=== PATIENT | male | born 1950 | race Caucasian/White ===

== ENCOUNTER 2021-06-04 16:21 | Emergency (ER) | payer MEDICARE, SELFPAY ==
[2021-06-04 16:32] VITALS: BP 110/63; PULSE 79; RESP 20; TEMP 36.7; O2SAT 98
--- NOTE | 2021-06-04 16:43 | ED.GENADULT ---
HPI - General Adult General Chief complaint: Upper Respiratory Infection Stated complaint: Sore Throat Time Seen by Provider: 06/04/21 16:57 Source: patient and RN notes reviewed Mode of arrival: ambulatory Limitations: no limitations History of Present Illness HPI narrative: 71-year-old male presents with multiple complaints. Reports he started losing his voice today, had cough and nasal congestion since yesterday. She also reports he had dark-colored urine. He denies dysuria, frequency, urgency. Denies fever. Reports body aches. MD complaint: Cough, dark-colored urine Related Data Home Medications Medication Instructions Recorded Confirmed aspirin 81 mg tablet,delayed 81 mg PO DAILY 03/22/19 06/04/21 release Allergies Allergy/AdvReac Type Severity Reaction Status Date / Time lisinopril Allergy Swelling Verified 06/04/21 16:40 of Lip/Tongue/Throat Sulfa (Sulfonamide Allergy Rash Unverified 03/06/21 15:13 Antibiotics) sulfamethoxazole Allergy Rash Verified 06/04/21 16:40 [From Bactrim] trimethoprim [From Bactrim] Allergy Rash Verified 06/04/21 16:40 Review of Systems Review of Systems: CONSTITUTIONAL: Denies malaise, chills, sweats, or fever. EYES: Denies visual changes, redness, or discharge. ENT: Reports rhinorrhea, congestion, sore throat, hoarse voice. Denies sinus pain, otalgia CARDIOVASCULAR: Denies chest pain, palpitations, or edema. RESPIRATORY: Reports cough. Denies dyspnea. GASTROINTESTINAL: Denies abdominal pain, nausea, vomiting, diarrhea SKIN: Denies rash or itching. : Reports dark-colored urine MUSCULOSKELETAL: Reports myalgia. NEUROLOGIC: Denies headache. All systems reviewed & are unremarkable except as noted in HPI and below [facility] Past Medical History Medical History Enlarged prostate Heart failure Hypertension Stroke UTI (urinary tract infection) due to Enterococcus Surgical History Surgical History H/O heart surgery History of prostate surgery Family History Family History Unknown No problems noted. Social History Social History (Updated 03/06/21 @ 15:19 by Promise Story [facility]) Smoking packs per day: 3 Smoking cigarettes per day: 60.0 Years smoked: 20 Smoking pack-years: 60.00 Smoking status: Former smoker Tobacco type: cigarettes Second hand tobacco smoke exposure: Yes Smoking end date: 05/12/14 Additional smoking assessment comments: 2 a week Alcohol intake: former Substance use: never Comments At time of signature, agree with nursing past medical, surgical, social and family history. There is no relevant family history pertinent to the presenting complaint Exam Narrative: GENERAL: Well-appearing, well-nourished, and in no acute distress. HEAD: Normocephalic EYES: PERRLA, conjunctivae clear ENT: Nares clear, turbinates edematous and erythematous, clear discharge. Mucous membranes moist. TM pearly ponce with dull light reflex bilaterally; no tragal tenderness. Oropharynx not erythematous without lesions. Tonsils not enlarged and without exudate, no drooling, no hoarseness, no trismus, uvula midline. NECK: Supple. No lymphadenopathy CHEST: Clear to auscultation, breath sounds equal. No wheezing, rhonchi, rales, or stridor. No respiratory distress, speaks in full sentences. HEART: Regular rate and rhythm. No murmur heard. SKIN: Warm, dry, no rash. NEURO: Alert and oriented x3. PSYCH: Normal mood and affect Course Course Emergency Course: Patient is aware of diagnosis, understands and agrees to treatment plan. Anticipatory guidance given. Patient agrees to follow-up as directed and is aware of reasons to seek care at the emergency department. Portions of this record may have been created with voice recognition software Level of Care: [facility] Care Visit
== END 2021-06-04 17:26 | disposition home or self-care (01) ==
PROVIDERS: Emergency Provider Nurse Practitioner; PCP Family Medicine
DX: U07.1 COVID-19 (principal); R31.9 Hematuria, unspecified; I11.0 Hypertensive heart disease with heart failure; I50.9 Heart failure, unspecified; Z87.891 Personal history of nicotine dependence; Z79.82 Long term (current) use of aspirin
CPT/HCPCS: 81003; 87086; 87426; 99213; C9803; G0463

== ENCOUNTER 2021-07-23 09:49 | Outpatient (CLI) | payer MEDICARE, SELFPAY ==
[2021-07-23 19:02] LABS: Basophils Absolute Auto 0.1 K/mm3 (0.0-0.1); Eosinophils Absolute Auto 0.3 K/mm3 (0-0.3); Eosinophils Percent Auto 3.3 % (0-4.4); Hematocrit 46.4 % (42.0-52.0); Hemoglobin 14.8 g/dL (14.0-18.0); Immature Granulocyte Absolute 0.02 K/mm3 (0.00-0.031); Immature Granulocyte Percent A 0.2 % (0-0.5); Lymphocytes Absolute Auto 2.61 K/mm3 (0.9-3.2); Lymphocytes Percent Auto 25.5 % (18.3-44.2); Mean Corpuscular HGB Conc 31.9 g/dl (32-36); Mean Corpuscular Hemoglobin 29.9 pg (26-34); Mean Corpuscular Volume 93.7 fl (80-100); Mean Platelet Volume 11.5 fl (7.4-10.4); Monocytes Absolute Auto 0.6 K/mm3 (0.1-0.6); Monocytes Percent Auto 5.4 % (2.6-8.5); Neutrophils Absolute Auto 6.6 K/mm3 (1.3-6.7); Neutrophils Percent Auto 64.6 % (45.5-73.1); Platelet Count Result 222 k/mm3 (150-375); Red Blood Count 4.95 M/mm3 (4.6-6.20); Red Cell Distribution Width 13.9 % (11.5-14.5); White Blood Count 10.2 K/mm3 (4.5-10.0)
[2021-07-23 19:03] LABS: Iron 131 ug/dL (49-181)
[2021-07-23 19:14] LABS: Percent Iron Saturation 32 % (20-50)
[2021-07-23 19:15] LABS: Add Urine Microscopic? YES; Appearance Urine Cloudy (Clear); Bacteria Urine Trace /hpf; Bilirubin Urine Negative (Negative); Blood Urine Negative (Negative); Color Urine Yellow (Yellow); Glucose Urine UA Negative (Negative); Ketones Urine Negative (Negative); Leukocyte Esterase Ur 1+ LEU/UL (NEGATIVE); Mucus Urine Rare /lpf; Nitrate Urine Positive (Negative); Protein Urine Negative (Negative); RBC Urine 0-2 /hpf (0-2); Specific Grav Ur 1.012 (1.001-1.035); Squamous Epithelial Cell Urine Rare /hpf (Few); Urobilinogen Urine Negative mg/dL (<2.0); WBC Clumps Urine Present /HPF; WBC Urine >75 /hpf (0-3)
[2021-07-23 19:32] LABS: Alanine Aminotransferase 21 U/L (4-50); Albumin Level 5.2 g/dL (3.5-5.1); Alkaline Phosphatase 73 U/L (38-126); Anion Gap 16 mmol/L (8-16); Aspartate Amino Transferase 26 U/L (17-59); Bilirubin,Total 0.9 mg/dL (0.2-1.3); Blood Urea Nitrogen 53 mg/dL (9-20); Calcium 10.1 mg/dL (8.4-10.2); Carbon Dioxide 26 mmol/L (22-30); Chloride 92 mmol/L (98-107); Estimated Glomerular Filt Rate 50; Glucose 284 mg/dL (65-110); Potassium 6.2 mmol/L (3.4-5.0); Sodium 134 mmol/L (137-145)
== END 2021-07-23 09:50 | disposition home or self-care (01) ==
PROVIDERS: PCP Family Medicine; Visit Provider Family Medicine
DX: E11.9 Type 2 diabetes mellitus without complications (principal); D64.9 Anemia, unspecified; I10 Essential (primary) hypertension; I50.9 Heart failure, unspecified
CPT/HCPCS: 36415; 80053; 81001; 83540; 83550; 85025; 87077; 87086; 87186

== ENCOUNTER 2021-07-24 10:36 | Outpatient (CLI) | payer MEDICARE, SELFPAY ==
[2021-07-24 19:07] LABS: Potassium 4.7 mmol/L (3.4-5.0)
[2021-07-24 19:13] LABS: Anion Gap 13 mmol/L (8-16); Blood Urea Nitrogen 47 mg/dL (9-20); Calcium 9.9 mg/dL (8.4-10.2); Carbon Dioxide 27 mmol/L (22-30); Chloride 95 mmol/L (98-107); Estimated Glomerular Filt Rate 60; Glucose 228 mg/dL (65-110); Sodium 135 mmol/L (137-145)
== END 2021-07-24 10:37 | disposition home or self-care (01) ==
LOC: ANHBWCLAB 10:38
PROVIDERS: PCP Family Medicine; Visit Provider Family Medicine
DX: E87.5 Hyperkalemia (principal)
CPT/HCPCS: 36415; 80048

== ENCOUNTER 2022-01-02 12:05 | Outpatient (CLI) | payer MEDICARE, SELFPAY ==
[2022-01-02 19:56] LABS: Hemoglobin A1C 6.7 % (<5.7)
[2022-01-02 20:16] LABS: Alanine Aminotransferase 17 U/L (6-50); Alkaline Phosphatase 59 U/L (38-126); Anion Gap 14 mmol/L (8-16); Aspartate Amino Transferase 34 U/L (17-59); Bilirubin,Total 0.7 mg/dL (0.2-1.3); Blood Urea Nitrogen 44 mg/dL (9-20); Calcium 9.7 mg/dL (8.4-10.2); Carbon Dioxide 33 mmol/L (22-30); Chloride 91 mmol/L (98-107); Estimated Glomerular Filt Rate 43; Glucose 177 mg/dL (65-110); Potassium 4.5 mmol/L (3.4-5.0); Sodium 138 mmol/L (137-145)
== END 2022-01-02 12:06 | disposition home or self-care (01) ==
PROVIDERS: PCP Family Medicine; Visit Provider Family Medicine
DX: E11.9 Type 2 diabetes mellitus without complications (principal); I87.8 Other specified disorders of veins
CPT/HCPCS: 36415; 80053; 83036

== ENCOUNTER 2022-03-27 10:48 | Outpatient (CLI) | payer MEDICARE, SELFPAY ==
--- NOTE | ~2022-03-27 | XR_ITS ---
EXAMINATION: XR toe 1st RT min 2V INDICATION: Right first toe pain TECHNIQUE: Four views of the right first toe are obtained on five radiographs COMPARISON: None available FINDINGS: The bones are osteopenic which limits the sensitivity for fracture however none is seen. Th ere are mild erosions at the medial aspect of the first metatarsophalangeal joint. There is mild oste oarthritis of multiple interphalangeal joints. Soft tissues are unremarkable. IMPRESSION: 1. Polyarticular osteoarthritis. Reviewed, dictated and finalized at location F. K FEEDER
[2022-03-27 19:31] LABS: Appearance Urine Slightly Cloudy (Clear); Bilirubin Urine Negative (Negative); Blood Urine Negative (Negative); Color Urine Yellow (Yellow); Glucose Urine UA Negative (Negative); Ketones Urine Negative (Negative); Leukocyte Esterase Ur 1+ LEU/UL (NEGATIVE); Nitrate Urine Positive (Negative); Protein Urine Negative (Negative); Urobilinogen Urine 0.2 mg/dL (<2.0); pH Urine 5.5 (5.0-9.0)
[2022-03-27 19:36] LABS: Bacteria Urine Trace /hpf; RBC Urine 0-2 /hpf (0-2); Squamous Epithelial Cell Urine Rare /hpf (Few)
[2022-03-27 19:37] LABS: Add Urine Microscopic? YES
[2022-03-27 19:46] LABS: Basophils Absolute Auto 0.1 K/mm3 (0.0-0.1); Eosinophils Absolute Auto 0.2 K/mm3 (0-0.3); Eosinophils Percent Auto 2.9 % (0-4.4); Hematocrit 43.9 % (42.0-52.0); Hemoglobin 14.3 g/dL (14.0-18.0); Immature Granulocyte Absolute 0.01 K/mm3 (0.00-0.031); Immature Granulocyte Percent A 0.1 % (0-0.5); Lymphocytes Absolute Auto 2.01 K/mm3 (0.9-3.2); Lymphocytes Percent Auto 28.7 % (18.3-44.2); Mean Corpuscular HGB Conc 32.6 g/dl (32-36); Mean Corpuscular Hemoglobin 29.7 pg (26-34); Mean Corpuscular Volume 91.1 fl (80-100); Monocytes Absolute Auto 0.4 K/mm3 (0.1-0.6); Monocytes Percent Auto 5.9 % (2.6-8.5); Neutrophils Absolute Auto 4.3 K/mm3 (1.3-6.7); Neutrophils Percent Auto 61.4 % (45.5-73.1); Platelet Count Result 226 k/mm3 (150-375); Red Blood Count 4.82 M/mm3 (4.6-6.20); Red Cell Distribution Width 12.4 % (11.5-14.5)
[2022-03-27 19:48] LABS: Anion Gap 18 mmol/L (8-16); Blood Urea Nitrogen 25 mg/dL (9-20); Carbon Dioxide 32 mmol/L (22-30); Chloride 95 mmol/L (98-107); Estimated Glomerular Filt Rate 55; Glucose 143 mg/dL (65-110); Potassium 4.2 mmol/L (3.4-5.0); Sodium 145 mmol/L (137-145)
== END 2022-03-27 10:49 | disposition home or self-care (01) ==
PROVIDERS: PCP Family Medicine; Visit Provider Family Medicine
DX: M79.674 Pain in right toe(s) (principal); D64.9 Anemia, unspecified; N30.90 Cystitis, unspecified without hematuria; N17.9 Acute kidney failure, unspecified
CPT/HCPCS: 36415; 73660; 80048; 81001; 85025

== ENCOUNTER 2022-09-16 10:31 | Outpatient (CLI) | payer MEDICARE, SELFPAY ==
[2022-09-16 18:41] LABS: Basophils Absolute Auto 0.1 K/mm3 (0.0-0.1); Basophils Percent Auto 1.1 % (0.2-1.2); Eosinophils Absolute Auto 0.3 K/mm3 (0-0.3); Eosinophils Percent Auto 4.6 % (0-4.4); Hemoglobin 13.2 g/dL (14.0-18.0); Immature Granulocyte Absolute 0.02 K/mm3 (0.00-0.031); Immature Granulocyte Percent A 0.3 % (0-0.5); Lymphocytes Absolute Auto 1.65 K/mm3 (0.9-3.2); Mean Corpuscular HGB Conc 31.4 g/dl (32-36); Mean Corpuscular Hemoglobin 29.9 pg (26-34); Mean Platelet Volume 11.2 fl (7.4-10.4); Monocytes Absolute Auto 0.4 K/mm3 (0.1-0.6); Monocytes Percent Auto 6.2 % (2.6-8.5); Neutrophils Absolute Auto 3.9 K/mm3 (1.3-6.7); Neutrophils Percent Auto 61.8 % (45.5-73.1); Platelet Count Result 171 k/mm3 (150-375); Red Blood Count 4.42 M/mm3 (4.6-6.20); White Blood Count 6.3 K/mm3 (4.5-10.0)
[2022-09-16 18:58] LABS: Alanine Aminotransferase 16 U/L (6-50); Albumin Level 4.4 g/dL (3.5-5.1); Alkaline Phosphatase 62 U/L (38-126); Anion Gap 8 mmol/L (8-16); Aspartate Amino Transferase 36 U/L (17-59); Bilirubin,Total 0.6 mg/dL (0.2-1.3); Blood Urea Nitrogen 18 mg/dL (9-20); Calcium 9.1 mg/dL (8.4-10.2); Carbon Dioxide 33 mmol/L (22-30); Chloride 99 mmol/L (98-107); Cholesterol 221 mg/dL (0-200); Estimated Glomerular Filt Rate > 60; Glucose 155 mg/dL (65-110); HDL Direct 32 mg/dL; Potassium 4.2 mmol/L (3.4-5.0); Sodium 140 mmol/L (137-145); Triglycerides 360 mg/dL (<150)
[2022-09-16 19:09] LABS: LDL Cholesterol Direct 133 mg/dL
[2022-09-16 19:50] LABS: Hemoglobin A1C 5.9 % (<5.7)
[2022-09-16 21:48] LABS: MALB Creatinine Ratio 41.8 mg/g (0-30); Microalbumin Urine Random 7.1 mg/L (0-16.7)
== END 2022-09-16 10:32 | disposition home or self-care (01) ==
PROVIDERS: PCP Family Medicine; Visit Provider Family Medicine
DX: D64.9 Anemia, unspecified (principal); E11.9 Type 2 diabetes mellitus without complications; I87.8 Other specified disorders of veins; E87.5 Hyperkalemia; I50.9 Heart failure, unspecified; I11.0 Hypertensive heart disease with heart failure; N40.0 Benign prostatic hyperplasia without lower urinary tract symptoms
CPT/HCPCS: 36415; 80053; 80061; 82043; 83036; 85025

== ENCOUNTER 2023-03-17 14:31 | Outpatient (CLI) | payer MEDICARE, SELFPAY ==
--- NOTE | ~2023-03-17 | XR_ITS ---
EXAM: XR foot LT min 3V, XR foot RT min 3V DATE: 03/17/2023 15:00 (accession [id number]), 03/17/2023 14:59 (accession [id number]) HISTORY: Pain Swelling . COMPARISON: X-ray first toe right 03/27/2022. FINDINGS: Severely decreased mineralization. No fracture or dislocation. No lytic or blastic lesion. Mild scattered degenerative changes bilaterally in the feet, most notably in the left first MTP join t and multiple midfoot joints. Soft tissue calcification of the plantar fascia bilaterally. Punched-o ut articular erosions about the first MTP joint, with overlying soft tissue swelling. No periosteal c hange. Soft tissues within normal limits. IMPRESSION: Severe osteopenia. Radiographic changes suggestive of gout in the right first MTP joint, correlate with appropriate labs and clinical presentation. Septic arthritis considered less likely but cannot be excluded based on i maging alone. No definite radiographic evidence of osteomyelitis. Reviewed, dictated and finalized at location K. NET PROGRAMMER IMPRESSION: Severe osteopenia. Radiographic changes suggestive of gout in the right first MTP joint, correlate with appropriate labs and clinical presentation. Septic arthritis considered l ess likely but cannot be excluded based on imaging alone. No definite radiographic evidence of osteomyelitis.
[2023-03-17 19:17] LABS: Hematocrit 40.2 % (42.0-52.0); Hemoglobin 12.7 g/dL (14.0-18.0); Mean Corpuscular HGB Conc 31.6 g/dl (32-36); Mean Corpuscular Volume 94.8 fl (80-100); Mean Platelet Volume 11.4 fl (7.4-10.4); Platelet Count Result 189 k/mm3 (150-375); Red Blood Count 4.24 M/mm3 (4.6-6.20); Red Cell Distribution Width 13.1 % (11.5-14.5); White Blood Count 6.3 K/mm3 (4.5-10.0)
[2023-03-17 20:07] LABS: Alanine Aminotransferase 14 U/L (6-50); Albumin Level 4.1 g/dL (3.5-5.1); Alkaline Phosphatase 58 U/L (38-126); Anion Gap 7 mmol/L (8-16); Aspartate Amino Transferase 25 U/L (17-59); Bilirubin,Total 0.6 mg/dL (0.2-1.3); Blood Urea Nitrogen 26 mg/dL (9-20); Calcium 9.2 mg/dL (8.4-10.2); Carbon Dioxide 32 mmol/L (22-30); Chloride 101 mmol/L (98-107); Estimated Glomerular Filt Rate 60; Glucose 173 mg/dL (65-110); Potassium 4.3 mmol/L (3.4-5.0); Sodium 140 mmol/L (137-145)
[2023-03-17 20:34] LABS: Creatinine Urine 197.8 mg/dL
[2023-03-17 20:39] LABS: MALB Creatinine Ratio 28.6 mg/g (0-30); Microalbumin Urine Random 56.5 mg/L (0-16.7)
[2023-03-17 21:40] LABS: Appearance Urine Turbid (Clear); Bacteria Urine 4+ /hpf; Bilirubin Urine Negative (Negative); Blood Urine 1+ (Negative); Color Urine Yellow (Yellow); Glucose Urine UA Negative (Negative); Ketones Urine Negative (Negative); Leukocyte Esterase Ur 3+ LEU/UL (NEGATIVE); Nitrate Urine Negative (Negative); Non Pathogenic Casts 0-2; Protein Urine Trace mg/dL (Negative); Specific Grav Ur 1.019 (1.001-1.035); Squamous Epithelial Cell Urine None seen /hpf (Few); WBC Urine >100 /hpf (0-3); pH Urine 5.5 (5.0-9.0)
[2023-03-17 21:53] LABS: Hemoglobin A1C 6.2 % (<5.7)
[2023-03-17 21:56] LABS: Add Urine Microscopic? YES
== END 2023-03-17 14:32 | disposition home or self-care (01) ==
LOC: ANHBWCLAB 14:33
PROVIDERS: PCP Family Medicine; Visit Provider Family Medicine
DX: E11.9 Type 2 diabetes mellitus without complications (principal); E87.5 Hyperkalemia; I10 Essential (primary) hypertension; I50.9 Heart failure, unspecified; N40.0 Benign prostatic hyperplasia without lower urinary tract symptoms; R60.9 Edema, unspecified; M85.89 Other specified disorders of bone density and structure, multiple sites
CPT/HCPCS: 36415; 73630; 80053; 81001; 82043; 83036; 85027

== ENCOUNTER 2023-06-25 13:28 | Outpatient (CLI) | payer MEDICARE, SELFPAY ==
--- NOTE | ~2023-06-25 | XR_ITS ---
EXAMINATION: XR lumbar spine 2-3V DATE: 06/25/2023 14:05 INDICATION: Low back pain. Fall 2 days ago. TECHNIQUE: 3 views of lumbar spine were obtained. COMPARISON: None. FINDINGS: There is 7 degrees dextrocurvature of thoracolumbar spine. There is 4 mm anterolisthesis of L5 on S1. There are likely bilateral L5 pars defects. There is mild chronic anterior wedging of T12 and L1 vertebral bodies. There is mildly decreased disc height at L2-L3, L4-L5, and L5-S1. There is m ultilevel severe facet joint osteoarthritis. There is a fusiform aneurysm of infrarenal aorta measuri ng approximately 5.8 cm. IMPRESSION: 1. 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 CTA of the abdomen and pelvis is recommended. I call ed this result to [place] So. 2. Bilateral L5 pars defects with grade 1 anterolisthesis of L5 on S1. 3. Mild lumbar spondylosis. Reviewed, dictated and finalized at location A. RING MANAGER IMPRESSION: 1. 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 CTA of the abdomen and pelvis is recommended. I called this result to [place] So. 2. Bilateral L5 pars defects with grade 1 anterolisthesis of L5 on S1. 3. Mild lumbar spondylosis.
[2023-06-25 18:16] LABS: Hematocrit 41.5 % (42.0-52.0); Hemoglobin 12.6 g/dL (14.0-18.0); Mean Corpuscular HGB Conc 30.4 g/dl (32-36); Mean Corpuscular Hemoglobin 28.3 pg (26-34); Mean Corpuscular Volume 93.3 fl (80-100); Mean Platelet Volume 11.3 fl (7.4-10.4); Platelet Count Result 234 k/mm3 (150-375); Red Blood Count 4.45 M/mm3 (4.6-6.20); Red Cell Distribution Width 15.4 % (11.5-14.5); White Blood Count 8.3 K/mm3 (4.5-10.0)
[2023-06-25 18:33] LABS: Anion Gap 10 mmol/L (8-16); Blood Urea Nitrogen 22 mg/dL (9-20); Carbon Dioxide 30 mmol/L (22-30); Chloride 102 mmol/L (98-107); Estimated Glomerular Filt Rate > 60; Glucose 125 mg/dL (65-110); Potassium 4.2 mmol/L (3.4-5.0); Sodium 142 mmol/L (137-145)
[2023-06-25 18:57] LABS: Appearance Urine Clear (Clear); Bilirubin Urine Negative (Negative); Blood Urine Negative (Negative); Color Urine Yellow (Yellow); Glucose Urine UA Negative (Negative); Ketones Urine Negative (Negative); Leukocyte Esterase Ur Negative LEU/UL (NEGATIVE); Nitrate Urine Negative (Negative); Protein Urine Negative (Negative); Specific Grav Ur 1.011 (1.001-1.035); pH Urine 5.5 (5.0-9.0)
[2023-06-25 19:00] LABS: Add Urine Microscopic? NO
== END 2023-06-25 13:29 | disposition home or self-care (01) ==
LOC: ANHBWCLAB 13:29
PROVIDERS: PCP Nurse Practitioner Adult Health; Visit Provider Nurse Practitioner Adult Health
DX: M43.06 Spondylolysis, lumbar region (principal); M47.817 Spondylosis without myelopathy or radiculopathy, lumbosacral region; R39.9 Unspecified symptoms and signs involving the genitourinary system; I71.43 Infrarenal abdominal aortic aneurysm, without rupture; W19.XXXA Unspecified fall, initial encounter
CPT/HCPCS: 36415; 72100; 80048; 81003; 85027

== ENCOUNTER 2023-08-19 11:36 | Outpatient (CLI) | payer MEDICARE, SELFPAY ==
--- NOTE | ~2023-08-19 | XR_ITS ---
Left wrist Technique: PA and lateral views were obtained. Clinical History: Pain Findings: No acute fracture or dislocation is seen. Osseous alignment is anatomic. Joint spaces are p reserved. Soft tissues are unremarkable. Impression: Unremarkable left wrist radiographs. Reviewed, dictated and finalized at location M. Impression: Unremarkable left wrist radiographs.
--- NOTE | ~2023-08-19 | XR_ITS ---
Clinical Indication: Congestion PA and lateral views of the chest: Comparison: None Findings: The lungs are clear, without evidence of focal consolidation or pleural effusion. Cardiome diastinal silhouette is prominent, status post cardiac valve replacement. Bones and soft tissues are unremarkable. Impression: Clear lungs. Cardiomegaly, status post valve replacement Reviewed, dictated and finalized at location . Impression: Clear lungs. Cardiomegaly, status post valve replacement
[2023-08-19 19:21] LABS: Anion Gap 9 mmol/L (4-12); Blood Urea Nitrogen 18 mg/dL (9-20); Calcium 9.7 mg/dL (8.4-10.2); Carbon Dioxide 28 mmol/L (22-30); Chloride 102 mmol/L (98-107); Estimated Glomerular Filt Rate > 60; Glucose 161 mg/dL (65-110); Potassium 4.4 mmol/L (3.4-5.0); Sodium 139 mmol/L (137-145)
== END 2023-08-19 11:37 | disposition home or self-care (01) ==
PROVIDERS: PCP Nurse Practitioner Adult Health; Visit Provider Nurse Practitioner Adult Health
DX: J98.8 Other specified respiratory disorders (principal); I51.7 Cardiomegaly; I50.9 Heart failure, unspecified; M25.532 Pain in left wrist; Z95.2 Presence of prosthetic heart valve
CPT/HCPCS: 36415; 71046; 73100; 80048

== ENCOUNTER 2024-04-19 11:10 | Outpatient (CLI) | payer MEDICARE, SELFPAY ==
[2024-04-19 19:34] LABS: Hematocrit 44.8 % (42.0-52.0); Hemoglobin 14.1 g/dL (14.0-18.0); Mean Corpuscular HGB Conc 31.5 g/dl (32-36); Mean Corpuscular Hemoglobin 30.7 pg (26-34); Mean Corpuscular Volume 97.4 fl (80-100); Mean Platelet Volume 11.6 fl (7.4-10.4); Platelet Count Result 183 k/mm3 (150-375); Red Cell Distribution Width 13.7 % (11.5-14.5); White Blood Count 9.8 K/mm3 (4.5-10.0)
[2024-04-19 20:29] LABS: Alanine Aminotransferase 94 U/L (6-50); Albumin Level 4.7 g/dL (3.5-5.1); Alkaline Phosphatase 68 U/L (38-126); Anion Gap 6 mmol/L (4-12); Aspartate Amino Transferase 63 U/L (17-59); Bilirubin,Total 1.8 mg/dL (0.2-1.3); Blood Urea Nitrogen 20 mg/dL (9-20); Carbon Dioxide 35 mmol/L (22-30); Chloride 97 mmol/L (98-107); Cholesterol 105 mg/dL (0-200); Estimated Glomerular Filt Rate 60; Glucose 134 mg/dL (65-110); HDL Direct 30 mg/dL; Potassium 4.5 mmol/L (3.4-5.0); Sodium 138 mmol/L (137-145); Triglycerides 163 mg/dL (<150); Uric Acid 8.2 mg/dL (3.5-8.5)
[2024-04-19 20:39] LABS: LDL Cholesterol Direct 40 mg/dL
[2024-04-19 20:46] LABS: Hemoglobin A1C 6.4 % (<5.7)
[2024-04-19 21:00] LABS: Prostate Specific Antigen 0.4 ng/mL (< OR = 4.0)
== END 2024-04-19 11:11 | disposition home or self-care (01) ==
LOC: ANHBWCLAB 11:11
PROVIDERS: PCP Nurse Practitioner Adult Health; Visit Provider Nurse Practitioner Adult Health
DX: E79.0 Hyperuricemia without signs of inflammatory arthritis and tophaceous disease (principal); E11.9 Type 2 diabetes mellitus without complications; R39.9 Unspecified symptoms and signs involving the genitourinary system; N40.0 Benign prostatic hyperplasia without lower urinary tract symptoms; Z12.5 Encounter for screening for malignant neoplasm of prostate
CPT/HCPCS: 36415; 80053; 80061; 82565; 83036; 84153; 84550; 85027; G0103

== ENCOUNTER 2024-10-18 10:59 | Outpatient (CLI) | payer MEDICARE, SELFPAY ==
--- OUTSIDE RECORDS SUMMARY | 2024-10-18 12:29 | XMS_ITS | Referral Summary ---
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 Name Role Phone Kayla Cruz MD PhD Unavailable [phone] Miah Merritt MD Unavailable [phone] Mily Rush PhD Unavailable [phone] Naveen Ty MD Unavailable [phone] Salvador Malone MD Unavailable [phone] Niles Reeves MD Unavailable [phone] Zachrey Wood MD Unavailable [phone] Charlene Palomino NP Primary Care Provider [phone] Allergies Active Allergy Reactions Criticality Noted Date Comments Sulfamethoxazole-Trimethoprim Rash Medium 2019 Lisinopril Angioedema High 02/05/2019 Medications acetaminophen (TYLENOL) 500 mg tabletIndication s:Pain Take 1 tablet (500 mg total) by mouth every 4 (four) hours as needed for pain Active isosorbide mononitrate ER (IMDUR) 60 mg 24 hr tablet Take 1 tablet (60 mg total) by mouth daily 30 tablet 2 Active apixaban (ELIQUIS) 5 mg tablet Take 1 tablet (5 mg total) by mouth 2 (two) times a day 60 tablet 1 3 Active atorvastatin (LIPITOR) 80 mg tablet Take 1 tablet (80 mg total) by mouth daily 30 tablet 11 3 Active allopurinoL (ZYLOPRIM) 100 mg tablet Take 1 tablet (100 mg total) by mouth daily 30 tablet 11 3 Active furosemide (LASIX) 40 mg tablet Take 1 tablet (40 mg total) by mouth daily 3 Active metFORMIN (GLUCOPHAGE) 500 mg tabletIndication s:type 2 diabetes mellitus Take 1 tablet (500 mg total) by mouth 2 (two) times a day Take 1 tablet by mouth twice daily 3 Active metoprolol tartrate (LOPRESSOR) 50 mg immediate release tablet Take 1 tablet (50 mg total) by mouth 2 (two) times a day 60 tablet 11 3 Active empagliflozin (JARDIANCE) 10 mg tabletIndication s:Heart Failure Take 1 tablet (10 mg total) by mouth daily 30 tablet 4 Active spironolactone (ALDACTONE) 25 mg tabletIndication s:hypertension Take 1 tablet (25 mg total) by mouth daily 30 tablet 4 Active apixaban (ELIQUIS) 5 mg tabletIndication s:atrial fibrillation Take 5 mg by mouth 2 (two) times a day. Indications: atrial fibrillation Active isosorbide mononitrate ER (IMDUR) 60 mg 24 hr tabletIndication s:prevention of anginal pain in coronary artery disease Take 60 mg by mouth daily. Indications: prevention of anginal chest pain associated with coronary artery disease Active finasteride (PROSCAR) 5 mg tabletIndication s:benign prostatic hyperplasia with lower urinary tract sx TAKE 1 TABLET(5 MG) BY MOUTH DAILY 30 tablet 11 4 Active clotrimazole 1 % creamIndications :rash Apply 1 Application topically every 12 (twelve) hours. Apply topically to the affected area every 12 hours for 4 weeks. [facility] [id number] in home 01/14/24 per RENETTA Ambrosio entered by Stefany Sosa RN Indications: rash 4 Active allopurinoL (ZYLOPRIM) 100 mg tabletIndication s:prevention of acute gout attack Take 100 mg by mouth daily. Indications: treatment to prevent acute gout attack Active metoprolol tartrate (LOPRESSOR) 50 mg immediate release tabletIndication s:hypertension Take 50 mg by mouth 2 (two) times a day. Indications: high blood pressure Active Active Problems Problem Noted Date Diagnosed Date COVID-19 12/01/2023 Altered mental status, unspe cified altered mental status type 11/29/2023 Acute midline low back pain without sciatica KARLA (acute kidney injury) 04/09/2023 Erythema multiforme 04/08/2023 Angina pectoris, unspecified 03/01/2022 Acute idiopathic gout of left ankle 06/25/2021 Assessment & Plan (06/26/2021 8:19 AM LOG MARKER): Persistent left ankle pain. Denies h/o gout. Possible/likely gout. -uric acid level 8.9, not diagnostic for gout but given patient's symptoms possible contributor. -naproxen 500 bid- patient has decreased pain after starting treatment -student assistance counselor about diet and food choices to avoid gout flares Assessment & Plan (06/25/2021 12:37 PM LOG MARKER): Persistent left ankle pain. Denies h/o gout. Possible/likely gout. -uric acid level 8.9, not diagnostic for gout but given patient's symptoms possible contributor. -naproxen 500 bid- patient has decreased pain after starting treatment Pain of left lower extremity 06/22/2021 Assessment & Plan (06/26/2021 8:13 AM LOG MARKER): Associated with LE edema. Exact etiology unclear as patient cannot provide any history.States he uses a walker at home, denies trauma to area, history of CVA. -DDx- includes osteoarthritis, complications from fluid overload caused by CHF, general deconditioning, bone bruise, gout. Less likely infection to the area, not red inflamed or hot. -PT has been consulted. Fall precautions. -lidocain patch Q12 PRN -elevated lactic acid- possibly pain is caused by gout- responding well to naproxen. Assessment & Plan (06/25/2021 11:26 AM LOG MARKER): Associated with LE edema. Exact etiology unclear as patient cannot provide any history.States he uses a walker at home, denies trauma to area, history of CVA. -DDx- includes osteoarthritis, complications from fluid overload caused by CHF, general deconditioning, bone bruise, gout. Less likely infection to the area, not red inflamed or hot. -PT has been consulted. Fall precautions. -will monitor symptoms as he is diuretic decreases edema. -lidocain patch Q12 PRN Assessment & Plan (06/24/2021 1:44 PM LOG MARKER): Associated with LE edema. Exact etiology unclear as patient cannot provide any history.States he uses a walker at home, denies trauma to area, history of CVA. -DDx- includes osteoarthritis, complications from fluid overload caused by CHF, general deconditioning, bone bruise, gout. Less likely infection to the area, not red inflamed or hot. -PT has been consulted. Fall precautions. -will monitor symptoms as he is diuretic decreases edema. -lidocain patch Q12 PRN Assessment & Plan (06/23/2021 4:13 PM LOG MARKER): Associated with LE pain. Exact etiology unclear as patient cannot provide any history.States he uses a walker at home, denies trauma to area, history of CVA. -DDx- includes osteoarthritis, complications from fluid overload caused by CHF, general deconditioning, bone bruise, gout. Less likely infection to the area, not red inflamed or hot. -PT has been consulted. Fall precautions. -will monitor symptoms as he is diuretic decreases edema. Assessment & Plan (06/22/2021 12:58 AM LOG MARKER): Exact etiology unclear as patient cannot provide any history. Could be 2/2 CHF exac and/or uncontrolled DM. PT has been consulted. Fall precautions. Will treat suspect causes. Acute on chronic systolic (congestive) heart meliton prettyre 06/21/2021 Assessment & Plan (06/26/2021 8:19 AM LOG MARKER): Possible. Patient had 2 to 3+ pitting edema lower extremities. Bilateral +2 lower extremities edema, +3 left foot. Patient received 80 of Lasix in the ED. -Lasix 40 mg IV q.d. -carvedilol 25 mg b.i.d. -spironalactone 25mg every day -lower extremity edema resolved Assessment & Plan (06/25/2021 11:30 AM LOG MARKER): Possible. Patient had 2 to 3+ pitting edema lower extremities. Bilateral +2 lower extremities edema, +3 left foot. Patient received 80 of Lasix in the ED. -Lasix 40 mg IV q.d. -carvedilol 25 mg b.i.d. -lower extremity edema resolved Assessment & Plan (06/24/2021 2:05 PM LOG MARKER): Possible. Patient had 2 to 3+ pitting edema lower extremities. Bilateral +2 lower extremities edema, +3 left foot. Patient received 80 of Lasix in the ED. -Lasix 40 mg IV q.d. -carvedilol 25 mg b.i.d. -improving lower extremity edema Assessment & Plan (06/23/2021 3:14 PM LOG MARKER): Possible. Patient had 2 to 3+ pitting edema lower extremities. Bilateral +2 lower extremities edema, +3 left foot. Patient received 80 of Lasix in the ED. -Lasix 40 mg q.d. -carvedilol 25 mg b.i.d. Assessment & Plan (06/22/2021 1:02 AM LOG MARKER): Possible. Patient had 2 to 3+ pitting edema noted by EMS in his lower extremities. Currently he has trace edema in his lower extremities mostly the dorsum of his feet. Patient received 80 of Lasix in the ED. hold diuretics until we can repeat labs. Continue beta-maximino. Appears resolved at this time. BPH with urinary obstruction 07/15/2019 Overview (07/15/2019): Added automatically from request for surgery [id number] Assessment & Plan (06/26/2021 8:18 AM LOG MARKER): Bladder scan showed a little over 300 cc of urine. -Continue finasteride 25 mg every day Assessment & Plan (06/24/2021 1:48 PM LOG MARKER): Bladder scan showed a little over 300 cc of urine. -Continue finasteride 25 mg every day Assessment & Plan (06/23/2021 2:27 PM LOG MARKER): Bladder scan showed a little over 300 cc of urine. -Continue finasteride 25 mg every day Assessment & Plan (06/22/2021 1:01 AM LOG MARKER): Bladder scan showed a little over 300 cc of urine. Continue Proscar Coronary artery disease invo lving wales coronary artery of wales heart without angina pectoris 05/10/2019 Assessment & Plan (06/23/2021 1:25 PM LOG MARKER): Patient denies any chest pain or shortness of breath. -carvedilol 25 mg b.i.d. -isosorbide mononitrate 60 mg q.d. hold for SBP less than 115 Assessment & Plan (06/22/2021 1:00 AM LOG MARKER): Patient denies any chest pain or shortness of breath. Continue beta-maximino and Imdur Assessment & Plan (02/22/2021 10:31 AM CDT): Patient remains free of any symptoms to suggest angina or heart failure. He will continue with aggressive secondary risk factor modification. Assessment & Plan (07/27/2020 11:42 AM CDT): Patient remains free of any symptoms to suggest angina. He will continue with aggressive secondary risk factor modification. Patient should have a more recently updated lipid profile. Pleural effusion on right 02/05/2019 Assessment & Plan (02/05/2019 6:44 AM CDT): Reviewed CT and the chest x-ray. Seem to be loculated right-sided pleural effusion with some atelectasis. Patient currently in no respiratory distress. No fever or leukocytosis noted. Will continue monitoring. Start on bedside incentive spirometery Neck swelling 02/05/2019 Assessment & Plan (02/05/2019 6:50 AM CDT): Presented to the emergency department with the essential and neck swelling associated with some difficulty breathing and dysphagia. Remains clinically stable. Vital signs stable CT of the neck was obtained which was negative for any significant head and neck soft tissue edema Patient was treated with IV steroids and Benadryl. Will discontinue lisinopril for the concerns of possible angioedema. Allergies history updated in the chart Benign prostatic hyperplasia with urinary obstru ction 11/26/2018 Overview (11/26/2018): Added automatically from request for surgery [id number] Assessment & Plan (02/05/2019 6:44 AM CDT): Continue with Proscar. Patient does have chronic in by leg Lara catheter in place. Hypertensive emergency 09/15/2018 Assessment & Plan (09/15/2018 6:31 AM CDT): Secondary to pain from urinary retention. Patient's blood pressure was noted to be as high as 244/152. Patient's blood pressure improved after Lara exchange. Patient did go into flash pulmonary edema became acutely short of breath. Patient is receiving IV Lasix. Currently blood pressures have improved. Will continue to monitor. COPD with asthma 08/23/2018 Overview (08/23/2018): Images from the original note were not included. PFTs (+) May 2018 George Ordered by a surgeon Dr. Ty Chronic combined systolic an d diastolic heart failure, NYHA class 3 08/23/2018 Overview (08/23/2018): Procedures: CORONARY ARTERY BYPASS GRAFT WITH PUMP CABGx 4 CAN left radial and veins (N/A Chest) POSSIBLE REPAIR MITRAL VALVE (N/A Chest) Surgeon: Salvador Malone MD Pre-op echo with diastolic dysfunction grade III, moderately dilated LV with EF 30% with global hypokinesis and akinetic inferior wall, moderately dilated RV. Post-op echo with EF improving to 50% on Epi and Milrinone. echocardiogram 06/16/2018 S/p CABG on 06/12; it is unclear if there was a MV repair also - no operative note seen. Overall LV systolic function appears moderately decreased. LVEF est. 34%. Mild LVE. Atrial sizes within normal limits. Mild RVE. Wire seen in RV. TAPSE ~ 1.3cm; RV s' 7cm/s consistent with mildly decreased Rv function. No subcostal view or SSN view. IVC not seen. Mildly increased wall thickness. No pericardial effusion seen. normal aortic root size. No AR seen, Trace MR, no , no MS, mild TV regurgitation, Mild OH. Diastolic function: indeterminate Parasternal Long [place] Parasternal Short [place] Apical Four Chamber Apical Two Chamber Confirmed on 06/16/2018 - 11:24:53 by Britany Bowers MD Assessment & Plan (02/05/2019 6:57 AM CDT): Does not seem to be fluid overloaded. Holding lisinopril. Will continue with metoprolol, HCTZ and hydralazine. Will continue monitoring. Start on bedside incentive spirometry Assessment & Plan (09/15/2018 6:35 AM CDT): With acute flash pulmonary edema due to hypertensive emergency from pain. Patient is currently on IV Lasix with improvement of his shortness of breath. Patient still has bilateral crackles at the bases. Will continue with Lasix at this time. Patient was on metoprolol and lisinopril at last admission which has been resumed with hold parameters. Will need to confirm patient's home medications with family. Lactic acidosis 08/22/2018 Assessment & Plan (09/15/2018 6:30 AM CDT): Likely secondary to UTI. Patient is receiving Lasix at this time for flash pulmonary edema from hypertensive emergency due to pain. Will continue to monitor. Assessment & Plan (08/22/2018 6:21 AM CDT): Resolved with IV fluids. Suspected to be related to UTI. Difficulty swallowing 07/10/2018 Assessment & Plan (06/26/2021 8:17 AM LOG MARKER): Patient has a history of dysphagia. Per nurse he is having some difficulty swallowing pills. Prior history of CVA. -consult speech-recommended soft pureed diet after swallow eval Assessment & Plan (06/25/2021 11:29 AM LOG MARKER): Patient has a history of dysphagia. Per nurse he is having some difficulty swallowing pills. Prior history of CVA. -consult speech-recommended soft pureed diet after swallow eval Assessment & Plan (06/24/2021 1:46 PM LOG MARKER): Patient has a history of dysphagia. Per nurse he is having some difficulty swallowing pills. Prior history of CVA. -will consult speech for swallow eval Assessment & Plan (07/11/2018 1:50 PM LOG MARKER): 07/09 speech re- evaluated patient: Pt may have honey thick liquids by small sips with cup, 100% nursing supervision and continue dysphagia I pureed diet Will continue continuous tube feeding via SBFT, pt refusing to eat pureed diet 07/10 G tube placement 07/11 restart tube feeds Acute respiratory failure with hypoxia 9 Assessment & Plan (06/13/2018 4:17 AM LOG MARKER): As expected post surgery requiring CPB. No history of lung disease but 2ppd smoking history. Remaining intubated this evening. Eventually extubated to MO. - Wean supplemental O2 to keep sat >92% - Aggressive pulmonary toileting with incentive spirometry q1h - OOBTC and ambulate POD1 Additional Care: Post extubation CXR with small lung volumes. Sats low 90s on 6L. Placed on CPAP. Will plan to take off with improved oxygenation or by morning. Improving command following and verbalizing more overnight. Assessment & Plan (06/12/2018 3:06 PM LOG MARKER): As expected post surgery requiring CPB. No history of lung disease but pack year smoking history. - Once chest tube output is consistently less than 100ml/hr and hemodynamics adequately supported, wean sedation and PSV trial - Extubate when fully awake and able to successfully complete PSV trial - Wean supplemental O2 to keep sat >92% - Aggressive pulmonary toileting with incentive spirometry q1h - OOBTC and ambulate POD1 Chronic disease anemia 06/12/2018 Assessment & Plan (02/05/2019 6:51 AM CDT): H&H is stable. Continue monitoring with daily CBC Assessment & Plan (08/22/2018 6:24 AM CDT): Hemoglobin is at baseline. Will monitor for signs of bleeding. Assessment & Plan (07/11/2018 1:49 PM LOG MARKER): HGB 10.6 / HCT 33.7 Will monitor with am labs Assessment & Plan (06/26/2018 2:48 PM LOG MARKER): Stable. Hgb 10.6 (9). No pressor requirements. No signs of bleeding. - No indication for transfusion at this time - CBC daily Assessment & Plan (06/24/2018 12:14 PM LOG MARKER): Stable. Hgb 8 (8.2). No pressor requirements. No signs of bleeding. - No indication for transfusion at this time - CBC daily Assessment & Plan (06/23/2018 2:12 PM LOG MARKER): Stable. Hgb 8.2 (8.3). Not requiring pressor support. No signs of active bleeding. - No indication for transfusion at this time; however, consider if patient becomes hemodynamically unstable with increased pressor requirements or hgb < 8 and symptomatic - CBC daily Assessment & Plan (06/23/2018 4:44 AM LOG MARKER): Hgb 8.3. No current pressor requirements. No signs of active bleeding. - No indication for transfusion at this time; however, consider if patient becomes hemodynamically unstable with increased pressor requirements or hgb < 8 and symptomatic - CBC daily Assessment & Plan (06/22/2018 6:40 PM LOG MARKER): Hgb 7.8 (6.8) s/p 1 unit PRBCs. No current pressor requirements. No signs of active bleeding. - No indication for transfusion at this time; however, consider if patient becomes hemodynamically unstable with increased pressor requirements or hgb < 8 and symptomatic - CBC daily Assessment & Plan (06/17/2018 5:20 PM LOG MARKER): Post-op anemia, No pressor requirements. No signs of active bleeding. - No indication for transfusion at this time however will transfuse if pressor requirement increases. - Goal to keep Hb > 7.5 Assessment & Plan (06/16/2018 8:02 PM LOG MARKER): Post-op anemia, minimal pressor requirements. No signs of active bleeding. - No indication for transfusion at this time however will transfuse if pressor requirement increases. - Goal to keep Hb > 7.5 Assessment & Plan (06/15/2018 3:03 PM LOG MARKER): Post-op anemia, minimal pressor requirements. No signs of active bleeding. - No indication for transfusion at this time however will transfuse if pressor requirement increases. - Goal to keep Hb > 7.5 Assessment & Plan (06/12/2018 3:06 PM LOG MARKER): Hb is postop. No signs of active bleeding. - No indication for transfusion at this time. - Goal to keep Hb > 7.5 Urinary tract infection asso ciated with indwelling urethral catheter 06/12/2018 Assessment & Plan (09/15/2018 4:16 AM CDT): Continue rocephin. Patient also has elevated lactate and suprapubic tenderness. Will also check bladder scan to ensure bladder is empty. Assessment & Plan (08/22/2018 6:18 AM CDT): Suspected. Patient is a inconsistent historian and unable to give much history. Per ED documentation, patient was complaining of abdominal pain and decreased urine output. Patient did have a lactate of 2.4 on presentation. Patient was started empirically on cefepime. Will await urine cultures. Assessment & Plan (06/22/2018 6:01 PM LOG MARKER): Preop Proteus UTI. Periop vanc/ancef. Ceftriaxone 7 day course completed. 06/18: UA negative, BC revealed NGTD. - Cefepime 1000mg q12h - F/U on hardin cultures - Consider exchanging lara and repeating hardin culture if patient becomes febrile and/ or signs of Sepsis (e.g hypotensive, leukocytosis) Assessment & Plan (06/17/2018 5:34 PM LOG MARKER): Preop Proteus UTI. Received 1 dose of rocephin and periop vanc/ancef. Lara changed in OR. - Ceftriaxone for 5 days (7 day course total), course to be complete todaly Assessment & Plan (06/15/2018 3:28 PM LOG MARKER): Preop Proteus UTI. Received 1 dose of rocephin and periop vanc/ancef. Lara changed in OR. - Ceftriaxone for 5 days (7 day course total), course to be complete 06/17 Assessment & Plan (06/14/2018 3:45 PM LOG MARKER): Preop Proteus UTI. Received 1 dose of rocephin and periop vanc/ancef. Lara changed in OR. - Rocephin for 5 days (7 day course total) Assessment & Plan (06/13/2018 4:05 PM LOG MARKER): Preop Proteus UTI. Received 1 dose of rocephin and periop vanc/ancef. Lara changed in OR. - Resume Rocephin today for 5 days (7 day course total) Assessment & Plan (06/12/2018 4:53 PM LOG MARKER): Noted to have Proteus UTI prior to OR. Given Rocephin last pm. Prior to OR. Lara changed in OR - Sensitive to cefazolin - Complete periop abx H/O mitral valve repair 06/12/2018 Overview (06/15/2019): Mitral valve repair with 28 mm Physio mitral annuloplasty ring Bilateral carotid artery stenosis 06/10/2018 Overview (08/23/2018): History right hemisphere and cerebellar strokes Carotid stenosis Followed at [facility] last study July 2018 Conclusions: 1. The right internal carotid artery disease is consistent with a less than 50% stenosis. 2. The left internal carotid artery disease is consistent with a more than 70% stenosis. 3. Normal, antegrade flow is noted in bilateral vertebral arteries. Previous Studies: Previous carotid ultrasound on 06-10-18: < 50% stenosis BENJY; >70% stenosis LICA. Assessment & Plan (02/22/2021 11:12 AM CDT): Patient remains free of any neurovascular compromise. Not clear that his carotid ultrasound previously had been adequately followed up on. At this time I would suggest follow-up of the left internal carotid. Assessment & Plan (07/27/2020 11:41 AM CDT): Patient has moderately severe left internal carotid artery stenosis and mild right. This needs a follow-up with carotid ultrasound. Assessment & Plan (06/27/2018 3:29 PM LOG MARKER): CTA demonstrated significant L ROBERT. - Plan for OP follow up for carotid endarterectomy after discharge and recovery from CABG - daily asa Assessment & Plan (06/26/2018 2:57 PM LOG MARKER): CTA demonstrated significant L ROBERT. - Plan for OP follow up for carotid endarterectomy after discharge and recovery from CABG Assessment & Plan (06/24/2018 12:10 PM LOG MARKER): CTA demonstrated significant L ROBERT. - Plan for OP follow up for carotid endarterectomy after discharge and recovery from CABG Assessment & Plan (06/23/2018 2:14 PM LOG MARKER): CTA demonstrated significant L ROBERT. - Plan for OP follow up for carotid endarterectomy after discharge and recovery from CABG Assessment & Plan (06/17/2018 5:31 PM LOG MARKER): CTA demonstrated significant L ROBERT. - Plan for OP follow up for carotid endarterectomy after discharge and recovery from CABG Assessment & Plan (06/16/2018 8:14 PM LOG MARKER): CTA demonstrated significant L ROBERT. - Plan for OP follow up for carotid endarterectomy after discharge and recovery from CABG Assessment & Plan (06/12/2018 4:47 PM LOG MARKER): CTA demonstrated significant L ROBERT. - Plan for OP follow up for carotid endarterectomy after discharge and recovery from CABG Assessment & Plan (07/11/2018 1:38 PM LOG MARKER): Per Vascular consult note : ' OK to proceed with coronary revascularization without further surgical carotid intervention - Patient may follow up with Dr. Cruz regarding his L cartoid stenosis and infrarenal AAA as an outpatient.' No further Vascular plans Urinary retention 06/05/2018 Assessment & Plan (09/15/2018 6:28 AM CDT): Appears to have resolved after Lara exchanged. Patient cannot recall when the last time his Lara was changed. He was admitted last month when his Lara was exchanged then. There is documentation in EMR noting that patient's urologist advised family that patient will need his Lara changed once a month. Assessment & Plan (08/22/2018 6:18 AM CDT): Patient is following with Urology as an outpatient. Continue Flomax. Assessment & Plan (06/10/2018 12:31 PM LOG MARKER): Patient has lara catheter in place Continue Flomax Assessment & Plan (06/07/2018 12:40 PM LOG MARKER): Patient has lara catheter in place continue Flomax Need to send UA S/P CABG x 4 06/05/2018 Overview (06/22/2018): LHC on 06/05 showed severe 95% stenosis mid-LAD, 90% LCx, 75% distal LM, 75% proximal ramus. Intra-op pre-CPB NICOLETTE showed severe LV dysfunction with EF of 30% with global hypokinesis and akinetic inferior wall, moderately dilated. Moderately dilated RV with normal systolic function. Biatrial enlargement. Trace TR, severe MR (severely afterload dependent with systolic >=135) (posteriorly directed jet), atheroma in descending aorta, negative PFO and Grade 3 diastolic dysfunction. -s/p 4v CABG (CAN->LAD, SVG->ramus->OM, SVG->RCA) on 06/12 and MV repair. -Post-CPB: s/p CABG and MV 28mm ring. EF~ 50% on epi 0.13mcg/kg/min. Improvement in contractility of anterior, anterolateral and anteroseptal leary. Inferior, inferolateral leary remained hypokinetic. RV unchanged, normal function. MV ring with no residual MR, no stenosis (mean gradient 2mmHg). Assessment & Plan (08/22/2018 6:20 AM CDT): On 06/12/2018. Continue aspirin, Lipitor, beta-maximino and RASHAD-inhibitor. Assessment & Plan (07/14/2018 12:59 PM LOG MARKER): The patient will need optimal glycemic control to promote healing. Assessment & Plan (07/13/2018 12:54 PM LOG MARKER): The patient will need optimal glycemic control to promote healing. Assessment & Plan (07/10/2018 1:52 PM LOG MARKER): The patient will need optimal glycemic control to promote healing. Assessment & Plan (07/09/2018 3:51 PM LOG MARKER): The patient will need optimal glycemic control to promote healing. Assessment & Plan (07/08/2018 12:20 PM LOG MARKER): The patient will need optimal glycemic control to promote healing. Assessment & Plan (07/07/2018 11:59 AM LOG MARKER): The patient will need optimal glycemic control to promote healing. Assessment & Plan (07/06/2018 11:29 AM LOG MARKER): The patient will need optimal glycemic control to promote healing. Assessment & Plan (07/01/2018 3:01 PM LOG MARKER): The patient will need optimal glycemic control to promote healing. Assessment & Plan (06/27/2018 3:47 PM LOG MARKER): S/p CABG x 4 And MV repair. Postop care to include: - ASA, statin daily - Metop 25 mg BID - Failed FEES, SBFT placed, enteral feeds at goal. Plan to repeat FEES on 06/29. - Colace/Senna dc'd 2/2 diarrhea - SCDs and SQ heparin for DVT prophylaxis - PT/OT Assessment & Plan (06/26/2018 2:47 PM LOG MARKER): S/p CABG x 4 And MV repair. Postop care to include: - ASA, statin daily - Metop increased to 25 mg BID - Failed FEES yesterday, SBFT placed, enteral feeds at goal. Since pt is drowsy on exam, plan to repeat swallow eval on Friday. - Colace/Senna dc'd 2/2 diarrhea - SCDs and SQ heparin for DVT prophylaxis - PT/OT Assessment & Plan (06/25/2018 12:31 PM LOG MARKER): S/p CABG x 4 And MV repair. Postop care to include: - ASA, statin daily - Failed FEES yesterday, SBFT placed, enteral feeds at goal. - Colace/Senna dc'd 2/2 diarrhea - SCDs and SQ heparin for DVT prophylaxis - PT/OT Assessment & Plan (06/24/2018 12:42 PM LOG MARKER): S/p CABG x 4 And MV repair. Postop care to include: - ASA, statin - BB - failed swallow, SBFT placed, enteral feeds at goal. FEES pending today. - Colace/Senna dc'd 2/2 diarrhea - SCDs and SQ heparin for DVT prophylaxis - Pt to maximize function - place picc (pt has pulled out multiple peripheral IV's) Assessment & Plan (06/23/2018 2:10 PM LOG MARKER): S/p CABG x 4 And MV repair. Postop care to include: - ASA - Statin - metop 6.25 mg PT BID initiated - failed swallow, SBFT placed, enteral feeds at goal. Since pt is more alert, will obtain FEES to re-evaluate swallow. - Colace/Senna dc'd 2/2 dirrehea - Consider restarting home flomax if patient does not respond to Lasix PT and Aldactone PT - SCDs and heparin for DVT prophylaxis - Pt to evaluate and treat/ OOBTC Assessment & Plan (06/22/2018 6:37 PM LOG MARKER): S/p CABG x 4 And MV repair. Postop care to include: - ASA - Statin - Consider restarting BB in AM - failed swallow, SBFT placed, enteral feeds at goal. - Colace/Senna for bowel regimen - Hold home flomax until able to take PO - SCDs and SQ heparin for DVT prophylaxis - Pt to evaluate and treat Assessment & Plan (06/17/2018 5:17 PM LOG MARKER): S/p CABG x 4 And MV repair. Postop care to include: - ASA - Statin - Eventual BB when off inotrope - failed swallow, SBFT placed, enteral feeds at goal. - Colace/Senna for bowel regimen - Hold home flomax until able to take PO - SCDs and SQ heparin for DVT prophylaxis - Pt to evaluate and treat Assessment & Plan (06/16/2018 8:01 PM LOG MARKER): S/p CABG x 4 And MV repair. Postop care to include: - ASA - Statin - Eventual BB when off inotrope - failed swallow, SBFT placed, enteral feeds started. - Colace/Senna for bowel regimen - Hold home flomax until able to take PO - SCDs and SQ heparin for DVT prophylaxis - Pt to evaluate and treat Assessment & Plan (06/15/2018 3:02 PM LOG MARKER): S/p CABG x 4 And MV repair. Postop care to include: - ASA - Statin - Eventual BB when off inotrope - failed swallow, SBFT placed, enteral feeds started. - Colace/Senna for bowel regimen - Hold home flomax until able to take PO - SCDs and SQ heparin for DVT prophylaxis - Pt to evaluate and treat Assessment & Plan (06/14/2018 3:52 PM LOG MARKER): S/p CABG x 4 And MV repair. Postop care to include: - ASA - Statin - Eventual BB when off inotrope - Place SBFT and start tube feeds, formal swallow eval when appropriate - Colace/Senna for bowel regimen - Hold home flomax until able to take PO - SCDs and SQ heparin for DVT prophylaxis - Pt to evaluate and treat Assessment & Plan (06/13/2018 4:08 PM LOG MARKER): S/p CABG x 4 And MV repair. Postop care to include: - ASA - Statin - Eventual BB when off inotrope - Bedside swallow eval then advance diet as tolerated if pt passes - Colace/Senna for bowel regimen - Resume home Flomax - SCDs and SQ heparin for DVT prophylaxis - Pt to evaluate and treat Assessment & Plan (06/12/2018 4:48 PM LOG MARKER): S/p CABG x 4 And MV repair postop care to include: Stress ulcer prophylaxis: PPI while intubated, transition to oral and continue if on home ppi ppi Nutrition plan: NPO for now: ADAT after extubation Bowel regimen: colace, senna DVT prophylaxis: SCDs, add SQH POD1 if no bleeding issues Physical therapy/Activity: OOBTC and ambulate with PT POD1 Assessment & Plan (07/11/2018 1:38 PM LOG MARKER): Post op from 4 v CABG and MV ring repair on 06/12/2018 Continue aspirin, Beta-maximino and statin Continue telemetry and post-op monitoring. MBS 06/30-Speech recs honey thick liquids by teaspoon, with 100% supervision, pureed dysphagia I Demonstrated inability to meet caloric need-continue continuous tube feeds Expecting SNF or Rehab placement Family to consider PEG tube placement 07/09 Speech therapy to see pt today - To assess for diet advancement. Pt may have honey thick liquids by small sips with cup, 100% nursing supervision and continue dysphagia I pureed diet 3/1 G tube placement 07/11 restart tube feeding Smoker 06/04/2018 Assessment & Plan (09/15/2018 6:29 AM CDT): Patient states he is still smoking 2 packs of cigarettes a day. He is not interested in a nicotine patch at this time. Assessment & Plan (08/22/2018 6:20 AM CDT): Patient has a history of smoking 2 packs per day but states he quit when he got sick. Assessment & Plan (06/07/2018 12:43 PM LOG MARKER): Smoking cessation education Assessment & Plan (06/04/2018 3:12 AM LOG MARKER): Patient states he smokes 2 packs a day and has done so since age 10. Permanent atrial fibrillation 06/04/2018 Assessment & Plan (06/26/2021 8:14 AM LOG MARKER): H/O A-fib -enoxaparin 40 mg q.d. -carvedilol 25 mg b.i.d. Assessment & Plan (06/25/2021 11:26 AM LOG MARKER): H/O A-fib -enoxaparin 40 mg q.d. -carvedilol 25 mg b.i.d. Assessment & Plan (06/24/2021 1:44 PM LOG MARKER): H/O A-fib -enoxaparin 40 mg q.d. -carvedilol 25 mg b.i.d. Assessment & Plan (06/23/2021 1:33 PM LOG MARKER): H/O A-fib -enoxaparin 40 mg q.d. -carvedilol 25 mg b.i.d. Assessment & Plan (06/22/2021 12:59 AM LOG MARKER): Patient not on any anticoagulation. Continue beta-maximino with hold parameters Assessment & Plan (09/15/2018 6:34 AM CDT): Patient is in regular rhythm at this time. Continue metoprolol with hold parameters. Will need to confirm other home medications with family. Assessment & Plan (08/22/2018 6:24 AM CDT): Currently in AFib. Continue beta-maximino. He is rate controlled. He does not appear to be on anticoagulation. Will need to confirm with family what his home medications are. Assessment & Plan (06/27/2018 3:20 PM LOG MARKER): Hx of paroxysmal afib. Rate controlled on home metop 50mg BID, and anticoagulated with ASA. CHADS-VASc Score 6, but HAS-BLED score 5. Therefore, will hold systemic anticoagulation 2/2 high fall risk in the setting of delirium. Converted to NSR overnight, remains RRR in 80s today - Decrease Amio to 400mg daily - Metoprolol 25 mg PT BID - Keep K > 4.2 and Mg > 3 - Continue holding anticoagulation, and reassess daily need for anticoagulation daily. Assessment & Plan (06/26/2018 3:08 PM LOG MARKER): Hx of paroxysmal afib. Rate controlled on home metop 50mg BID, and anticoagulated with ASA. CHADS-VASc Score 6, but HAS-BLED score 5. Therefore, will hold systemic anticoagulation 2/2 high fall risk in the setting of delirium. In Afib this AM, rate 100-130's. QTc 530 on EKG. - Decrease Amio to 400mg BID - Metoprolol increased to 25 mg PT BID - Keep K > 4.2 and Mg > 3 - Continue holding anticoagulation, and reassess daily need for anticoagulation daily. Assessment & Plan (06/25/2018 5:09 PM LOG MARKER): Hx of paroxysmal afib. On home metop 50mg BID. NSR until last evening. Decision made to hold systemic anticoagulation yesterday in the setting of high fall risk. Back into a fib with RVR overnight. Received amio bolus x3, remains in A fib with rates in the 130s-140s. HAS-BLED score (5) demonstrating high risk of bleeding with anticoagulation, also high fall risk 2/2 hyperactive delirium. - Amio 400mg TID - Metoprolol 5mg IV now - Keep K > 4.2 and Mg > 3 - Metoprolol PT TD - Continue holding anticoagulation for now, reassess daily Assessment & Plan (06/25/2018 5:17 AM LOG MARKER): Hx of paroxysmal afib. On home metop 50mg BID and ASA 81mg Daily. Currently, NSR 80's. Amio down to 200mg today - amio 200 mg per tube daily in light of prolonged QTc - Keep K > 4.2 and Mg > 3 - Metop 6.25 mg BID; will advance as tolerated as BP allows - Heparin gtt d/c 06/23 for high fall risk and now NSR Additional Care: Episode of Afib with RVR to 160s, spontaneously broke 0100: Afib RVR to 140s, verified by EKG. 150mg Bolus Amio. AM labs sent to check lytes 0200: Continued afib rates 130, 2nd Amio bolus given. 0300: NSR. MG repletion Assessment & Plan (06/24/2018 12:08 PM LOG MARKER): Hx of paroxysmal afib. On home metop 50mg BID and ASA 81mg Daily. Currently, NSR 80's. Amio decreased to 400 mg tid yesterday. - decrease amio to 200 mg per tube daily in light of prolonged QTc - Keep K > 4.2 and Mg > 3 - Metop 6.25 mg BID; will advance as tolerated as BP allows - d/c heparin gtt in light of high fall risk and now NSR Assessment & Plan (06/23/2018 8:59 PM LOG MARKER): Hx of paroxysmal afib. On home metop 50mg BID and ASA 81mg Daily. Currently, NSR 77 bpm. - Amio decreased to 400mg PT Q 8hours - Keep K > 4.2 and Mg > 2 - Metop 6.25 mg BID - heparin gtt per nomagram for systemic anticoagulation. - Patient is a high fall risk; therefore, will discuss plans for skilled nursing systemic anticoagulation with surgical team. Assessment & Plan (06/23/2018 1:28 PM LOG MARKER): Hx of paroxysmal afib. On home metop 50mg BID and ASA 81mg Daily. Currently, NSR 77 bpm. - Amio decreased to 400mg PT Q 8hours - Keep K > 4.2 and Mg > 2 - Metop 6.25 mg BID initiated and titrate dosage up as clinically indicated - heparin gtt per nomagram for systemic anticoagulation. Patient is a high fall risk; therefore, will discuss plans for dedicated intermodal truck driver systemic anticoagulation with surgical team. 1200: Text cardiac surgery resident regarding plans for systemic dedicated intermodal truck driver anticoagulation. Awaiting recommendations. Assessment & Plan (06/22/2018 5:42 PM LOG MARKER): Hx of paroxysmal afib. On home metop 50mg BID and ASA 81mg Daily. Currently, NSR 67 bpm. - Amio PT 400mg Q 8hours - Keep K > 4.2 and Mg > 2 - Consider restarting home metop - heparin gtt per nomagram for systemic anticoagulation 1600: potassium 3.6. Repletion with 40mEq PT. Assessment & Plan (06/17/2018 5:30 PM LOG MARKER): Hx of paroxysmal afib at baseline on no anticoagulation. Afib RVR In 120s-130s - transition amiodarone gtt to PT 400mg Q 8hours - Keep K > 4.2 and Mg > 2 - Eventual beta maximino when off milrinone - heparin gtt per nomagram for systemic anticoagulation Assessment & Plan (06/16/2018 8:14 PM LOG MARKER): Hx of paroxysmal afib at baseline on no anticoagulation. Afib RVR In 120s-130s - Keep amio drip at 1 - Keep K > 4.2 and Mg > 2 - Epi to off - Eventual beta maximino when off milrinone - heparin gtt per nomagram for systemic anticoagulation Assessment & Plan (06/15/2018 3:19 PM LOG MARKER): Hx of paroxysmal afib at baseline on no anticoagulation. Afib RVR In 120s-130s - Amio bolus 150 - Keep amio drip at 1 - Keep K > 4.2 and Mg > 2 - Epi wean Q 8hours - Eventual beta maximino when off inotrope - will discuss timing of systemic anticoagulation with CT surgery Assessment & Plan (06/14/2018 3:51 PM LOG MARKER): Hx of paroxysmal afib at baseline on no anticoagulation. Afib RVR overnight treated with several amio boluses and drip, diltiazem, and electrolyte repletion. Remains in afib 120s. - Amio bolus - Keep amio drip at 1 - Keep K > 4.2 and Mg > 2 - Increase Epi wean - Eventual beta maximino when off inotrope - If pt remains in afib will discuss anticoagulation with CT surgery tomorrow Assessment & Plan (07/11/2018 1:37 PM LOG MARKER): Now in NSR Continue Beta-maximino EKG No planned anticoagulation-high fall risk Ongoing telemetry 07/[address] Briseno Assessment & Plan (06/07/2018 12:48 PM LOG MARKER): Continue beta blockade Heparin gtt continue beta blockade Assessment & Plan (06/04/2018 3:15 AM LOG MARKER): Per EMR, patient has a history of paroxysmal AFib. Patient does not take any medications at home. Patient will likely need anticoagulation as he has a chads Vasc score of at least 4. Patient has a history of hypertension, CVA and his age of 68. Patient also appears to be prediabetic. 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 Continue monitoring. Assessment & Plan (09/15/2018 6:32 AM CDT): Patient is not the best historian. He resides with his family. They help take care of him. Assessment & Plan (08/22/2018 6:22 AM CDT): Patient is an inconsistent historian. Continue statin and aspirin. 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 Unable to currently walk. -PT/OT consulted Assessment & Plan (06/22/2021 1:00 AM LOG MARKER): Patient unable to provide any history Assessment & Plan (09/15/2018 6:32 AM CDT): Patient has residual cognitive deficits. Continue statin and aspirin. Assessment & Plan (06/04/2018 3:18 AM LOG MARKER): Patient denies this. Per EMR patient had a right cerebellar infarct in 2012. Patient will be started on aspirin and statin. Type 2 diabetes mellitus wit h hyperglycemia, without long-term current use of insulin 07/01/2012 Overview (08/23/2018): With cerebrovascular disease right hemisphere and cerebellar stroke Assessment & Plan (06/26/2021 8:20 AM LOG MARKER): Patient has a history of diabetes per review of EMR however does not appear to be on any medications. He was on insulin in the past seems. Patient presented with a blood sugar of 306. Will monitor on sliding scale. Will likely need adjustment in insulin. -A1c 8.2 -lanus 10 Qam and sliding scale lispro -added prandial lispro 6 units. Due to consistently high glucose measurements >200 Assessment & Plan (06/25/2021 12:31 PM LOG MARKER): Patient has a history of diabetes per review of EMR however does not appear to be on any medications. He was on insulin in the past seems. Patient presented with a blood sugar of 306. Will monitor on sliding scale. Will likely need adjustment in insulin. -A1c 8.2 -lanus 10 Qam and sliding scale lispro -added prandial lispro 6 units. Due to consistently high glucose measurements >200 Assessment & Plan (06/24/2021 1:49 PM LOG MARKER): Patient has a history of diabetes per review of EMR however does not appear to be on any medications. He was on insulin in the past seems. Patient presented with a blood sugar of 306. Will monitor on sliding scale. Will likely need adjustment in insulin. -A1c 8.2 -lanus 10 Qam and sliding scale lispro Assessment & Plan (06/23/2021 3:17 PM LOG MARKER): Patient has a history of diabetes per review of EMR however does not appear to be on any medications. He was on insulin in the past seems. Patient presented with a blood sugar of 306. Will monitor on sliding scale. Will likely need adjustment in insulin. -A1c 8.2 -lanus 10 Qam and sliding scale lispro Assessment & Plan (06/22/2021 12:59 AM LOG MARKER): Patient has a history of diabetes per review of EMR however does not appear to be on any medications. He was on insulin in the past seems. Patient presented with a blood sugar of 306. Will monitor on sliding scale. Will check A1c. Will likely need adjustment in insulin. Assessment & Plan (02/05/2019 6:51 AM CDT): On low-dose sliding scale insulin. Assessment & Plan (09/15/2018 6:28 AM CDT): Home regimen unknown. No family at bedside. Will place patient on low-dose sliding scale and continue to monitor for now. Sugars are controlled. Assessment & Plan (08/22/2018 6:22 AM CDT): Sugars are controlled. Continue sliding scale coverage. Will need to determine what patient's home regimen is. Assessment & Plan (07/14/2018 1:12 PM LOG MARKER): Over the previous 24 hours, blood glucose in good margin of safety, but not at goal with range of 118-194 mg/dl with 7 units TDD insulin coverage. Glucerna 1.5, 240 ml bolus tube feeds continue; Dysphagia 1 diet continues. Target inpatient blood glucose is 100-180 mg/dl. AM blood glucose this morning was 125 mg/dl. Glycemic management complicated by tube feeds, variable oral intake and altered mental status. As glycemia in good margin of safety, we will continue the current insulin regimen. We will continue to monitor throughout the day and will titrate insulin as needed to optimize glycemic control. Recommendation: 1. Continue Humalog 3 units Q 4 hours x 5 with scheduled bolus tube feeds (once bolus tube feeds are at goal: glucerna 1.5, 240 ml) 2. Continue mid dose lispro correction q4h 3. Continue to monitor blood glucose Q 4 hours. Discharge Plan: - If discharge to SNF on bolus tube feeds, continue current regimen Please notify DM team if Tube feeding plan changes Recommendations for diabetes management were discussed with the primary team. For questions regarding this patient today, please call Desiree Torrez NP at [phone]. If after hours, please contact the Diabetes Fellow at [phone]. Assessment & Plan (07/13/2018 1:07 PM LOG MARKER): Over the previous 24 hours, blood glucose in good margin of safety, but not at goal with range of 121-203 mg/dl with 14 units TDD insulin coverage. Glucerna 1.5 continuous tube feeding at 50 ml/hour to be transitioned to bolus tube feeds today); Dysphagia 1 diet continues. Target inpatient blood glucose is 100-180 mg/dl. AM blood glucose this morning was 157 mg/dl. Glycemic management complicated by tube feeds, variable oral intake and altered mental status. As continuous tube feeding will be transitioned to bolus tube feeding Q 4 hours x 5 feedings (goal = Glucerna 1.5, 240 ml/hour providing ~32 grams of carbohydrates with each bolus), we will discontinue the NPH insulin and start scheduled bolus insulin every 4 hours with bolus tube feeds at insulin to carbohydrate ratio of ~ 1:11. We will continue to monitor throughout the day and will titrate insulin as needed to optimize glycemic control. Recommendation: 1. Discontinue NPH 3 units Q 8 hours 2. Start Humalog 3 units Q 4 hours x 5 with scheduled bolus tube feeds (once bolus tube feeds are at goal: glucerna 1.5, 240 ml) 3. Continue mid dose lispro correction q4h 4. Continue to monitor blood glucose Q 4 hours. Tentative Discharge Plan: - If discharge to SNF on bolus tube feeds, continue current regimen Please notify DM team if Tube feeding plan changes Recommendations for diabetes management were discussed with the primary team. For questions regarding this patient today, please call Desiree Torrez NP at [phone]. If after hours, please contact the Diabetes Fellow at [phone]. Assessment & Plan (07/10/2018 1:57 PM LOG MARKER): Over the previous 24 hours, blood glucose well controlled with range of 104-160 mg/dl with 16 units TDD insulin coverage. Glucerna 1.5 continuous tube feeding at 50 ml/hour stopped yesterday for G-tube placement today); Dysphagia I diet resumed post G-tube placement. Target inpatient blood glucose is 100-180 mg/dl. AM blood glucose this morning was 133 mg/dl. Glycemic management complicated by tube feeds, variable oral intake and altered mental status. As glycemia in good margin of safety, we will continue the current insulin regimen and continue to monitor throughout the day. As a diet has been resumed, we will increase the NPH dose back to 9 units Q 8 hours to avoid hyperglycemia. Recommendation: Continue current treatment 1. Mid dose lispro correction q4h 2. Increase NPH insulin from 7 units to 9 units q8h Please notify DM team if Tube feeding plan changes Recommendations for diabetes management were discussed with the primary team. For questions regarding this patient today, please call Desiree Torrez NP at [phone]. If after hours, please contact the Diabetes Fellow at [phone]. Assessment & Plan (07/09/2018 3:57 PM LOG MARKER): Over the previous 24 hours, blood glucose in good margin of safety, but not at goal with range of 89-179 mg/dl with 33 units TDD insulin coverage. Glucerna 1.5 continuous tube feeding at 50 ml/hour. Target inpatient blood glucose is 100-180 mg/dl. AM blood glucose this morning was 127 mg/dl. As he is not eating, he will be NPO for PEG tube placement tomorrow. Glycemic management complicated by continuous tube feeds, variable oral intake and altered mental status. As glycemia in good margin of safety, we will continue the current insulin regimen and continue to monitor throughout the day. We will decrease the NPH dose this evening once the tube feeding has been discontinued to avoid hypoglycemia. Recommendation: Continue current treatment 1. Mid dose lispro correction q4h 2. NPH insulin 9 units q8h (last dose at 1400) 3. NPH insulin 7 units q8H (first dose at 2200) while patient NPO for PEG tube placement. Please notify DM team if Tube feeding plan changes Recommendations for diabetes management were discussed with the primary team. For questions regarding this patient today, please call Desiree Torrez NP at [phone]. If after hours, please contact the Diabetes Fellow at [phone]. Assessment & Plan (07/08/2018 12:20 PM LOG MARKER): Over the previous 24 hours, blood glucose in good margin of safety, but not at goal with range of 97-185 mg/dl with 34 units TDD insulin coverage. Glucerna 1.5 continuous tube feeding at 50 ml/hour. Target inpatient blood glucose is 100-180 mg/dl. AM blood glucose this morning was 156 mg/dl. Glycemic management complicated by continuous tube feeds, variable oral intake and altered mental status. As glycemia in good margin of safety, we will continue the current insulin regimen and continue to monitor throughout the day. Recommendation: Continue current treatment 1. Mid dose lispro correction q4h 2. NPH insulin 9 units q8h Please notify DM team if Tube feeding plan changes For questions regarding this patient today, please call Denita Garcia NP at [phone]. If after hours, please contact the Diabetes Fellow at [phone]. Assessment & Plan (07/07/2018 12:01 PM LOG MARKER): Over the previous 24 hours, blood glucose in good margin of safety, but not at goal with range of 90-217 mg/dl with 33 units TDD insulin coverage. Glucerna 1.5 continuous tube feeding at 50 ml/hour. Target inpatient blood glucose is 100-180 mg/dl. AM blood glucose this morning was 142 mg/dl. Glycemic management complicated by continuous tube feeds, variable oral intake and altered mental status. As glycemia in good margin of safety, we will continue the current insulin regimen and continue to monitor throughout the day. Recommendation: Continue current treatment 1. Mid dose lispro correction q4h 2. NPH insulin 9 units q8h Please notify DM team if Tube feeding plan changes Recommendations for diabetes management were discussed with the primary team. For questions regarding this patient today, please call Desiree Torrez NP at [phone]. If after hours, please contact the Diabetes Fellow at [phone]. Assessment & Plan (07/06/2018 11:30 AM LOG MARKER): Pt is on Glucerna 50cc/hr for 24 hour per day Oral intake continues to be poor. Recommendation: Continue current treatment 1. Mid dose lispro correction q4h 2. NPH insulin 9 units q8h Please notify DM team if Tube feeding plan changes Please call JAVIER / Osmin Lizarraga M.D. At [phone] for any questions. If after 5 PM or weekends, please contact the Diabetes Fellow at [phone], option #1 Assessment & Plan (07/03/2018 9:48 AM LOG MARKER): The patient was converted from nocturnal to 24-hr tube feeds yesterday to improve nutrition. PO intake is small but he is having some juices. He is on 1800 dneys/day of Glucerna 1.5 at 50 ml/hr. Glucoses 161-184 with TDD of 23 NPH and 7 lispro. Recommendation: Continue current treatment 1. Mid dose lispro correction q4h 2. NPH insulin 9 units q8h 3. Orders entered For diabetes-related questions today only please call [phone]. For after- hours help please contact the diabetes fellow at [phone]. Assessment & Plan (07/02/2018 5:12 PM LOG MARKER): Over the past 24 hr, his glucose became elevated to 323 after nocturnal feeding was instituted but is in the mid-100s now. The patient is being switched back to continuous tube feedings with Glucerna and has poor PO intake. Previously with continuous tube feedings he was on 11 of NPH q8h and a mid-dose slide q4h. However, the previous total calories was 2160/day vs. 1800/day now. We will switch back to the previous regimen and reduce the NPH from 11 units q8h to 9. Recommendation: 1. Mid dose lispro correction q4h 2. NPH insulin 9 units q8h 3. Orders entered For diabetes-related questions today only please call [phone]. For after- hours help please contact the diabetes fellow at [phone]. Assessment & Plan (07/01/2018 5:48 PM LOG MARKER): Over the past 24 hr, his glucose has been he well controlled with a range of 125-191 mg/dl with 42 units total daily dose insulin given. He was receiving tube feedings yesterday but passed his swallow evaluation, and thickened liquid diet has been started. Nocturnal tube feeds of Two Denys HN at 80 cc/hr will continue from 10:00 p.m. To 6:00 a.m. Target inpatient glycemic goal is 100-180 mg/dl. Fasting blood glucose this a.m. was 98 mg/dl. The patient will require basal insulin. Will continue to closely monitor blood glucose and make further adjustments as indicated. Recommendation -Start NPH 5 units Q 8 hours -Continue MDSII with AC -Continue MDSII at 2200 and 0200 with TF -Blood glucose check AC, 2200 and 0200 For questions regarding this patient today, please call Denita Garcia NP at [phone]. If after hours, please contact the Diabetes Fellow at [phone]. Assessment & Plan (07/11/2018 1:49 PM LOG MARKER): Continuous tube feedings w/ water flushes Continue scheduled NPH q 8 hrs Continue blood glucose checks. Continue SSI Modified barium swallow (MBS) 06/30 showed aspiration Calorie count, diet during the day Endocrine consulted- will follow note Assessment & Plan (06/27/2018 3:32 PM LOG MARKER): Hx of DM. A1c 6.0. Not on home meds. Currently, TF at goal and BG 150 to 170s. - Continue HD SSI - scheduled NPH to 11 units q8h Assessment & Plan (06/27/2018 1:22 AM LOG MARKER): Hx of DM. A1c 6.0. Not on home meds. Currently, TF at goal and BG 150 to 220s. - Continue HD SSI - Increase scheduled NPH to 11 units q8h Assessment & Plan (06/26/2018 2:58 PM LOG MARKER): Hx of DM. A1c 6.0. Not on home meds. Currently, TF at goal and BG 150 to 220s. - Continue high dose slide - Increase scheduled NPH to 10 units q8h Assessment & Plan (06/25/2018 12:27 PM LOG MARKER): Hx of DM. Not on home meds. A1c 6.0. Currently, TF at goal and BG > 200 at least 2/6 checks. - Continue high dose slide - Increase scheduled NPH to 8 units q8h 1230: Remains hyperglycemic in the 200s, will increase NPH to 10u Q8h Assessment & Plan (06/24/2018 12:28 PM LOG MARKER): Hx of DM. Not on home meds. A1c 6.0. Currently, TF at goal and BG > 200 at least 2/6 checks. - Continue high dose slide - increase scheduled NPH to 6 units q8h Assessment & Plan (06/23/2018 2:13 PM LOG MARKER): Hx of DM. Not on home meds. A1c 6.0. Currently, TF at goal and blood glucose 134- 214 on high dose SSI Q4H and scheduled NPH. - Continue high dose slide - scheduled NPH 5 units q8h Assessment & Plan (06/22/2018 6:05 PM LOG MARKER): Hx of DM. Not on home meds. Currently, TF at goal and blood glucose 175- 216 on high dose SSI Q4H and scheduled NPH. - Continue high dose slide - scheduled NPH 5 units q8h Assessment & Plan (06/17/2018 5:33 PM LOG MARKER): Hx of DM on no home meds. On high dose SSI Q4H. - Continue high dose slide - blood glucose has been labile, will begin NPH once blood glucose more stable Assessment & Plan (06/16/2018 8:17 PM LOG MARKER): Hx of DM on no home meds. On high dose SSI Q4H. - Continue high dose slide - May need basal insulin with initiation of tube feeds Assessment & Plan (06/15/2018 3:25 PM LOG MARKER): Hx of DM on no home meds. On high dose SSI Q4H. - Continue high dose slide - May need basal insulin with initiation of tube feeds Assessment & Plan (06/14/2018 4:02 PM LOG MARKER): Hx of DM on no home meds. On high dose SSI Q4H. - Continue high dose slide - May need basal insulin with initiation of tube feeds Alcohol use disorder, moderate, dependence 05/31 Assessment & Plan (08/22/2018 6:25 AM CDT): History of. Patient states he has not had alcohol since he was discharged from [place]. Patient was discharged on 07/14/2018. Continue thiamine and multivitamin. Assessment & Plan (06/04/2018 3:29 AM LOG MARKER): Patient is a binge drinker he drinks once a week 12 beers and a pt of whiskey. He states his last drink was over a week ago. However patient is diaphoretic with elevated blood pressures and appears to be a poor historian. Will have to monitor for signs of alcohol withdrawals. Will start patient on folic acid, thiamine and multivitamin. Benign hypertension Chronic systolic congestive heart failure Assessment & Plan (07/27/2020 11:41 AM CDT): With persistently stable symptoms and normalization of his proBNP previously I see no need for alteration to his heart failure regimen however because of his blood pressure being elevated I will increase his hydralazine to 100 mg t.i.d.. Assessment & Plan (12/16/2019 10:27 AM CDT): Images from the original note were not included. Patient's proBNP had normalized in June on his current CHF treatment. Creatinine has also normalized it would be reasonable to consider ARB or Entresto if mendez becomes a concern. I 1st plan to reassess the patient's left ventricular performance with echocardiography. Essential hypertension Assessment & Plan (06/26/2021 8:18 AM LOG MARKER): -hydralazine 50 mg t.i.d. -furosemide 40 mg q.d. Assessment & Plan (06/25/2021 11:29 AM LOG MARKER): -hydralazine 50 mg t.i.d. -furosemide 40 mg q.d. -isosorbide mononitrate 60 mg q.d. Assessment & Plan (06/24/2021 1:48 PM LOG MARKER): -hydralazine 50 mg t.i.d. -furosemide 40 mg q.d. -isosorbide mononitrate 60 mg q.d. Assessment & Plan (06/23/2021 3:14 PM LOG MARKER): Home medications resumed with hold parameters. Will hold diuretics until we can repeat BMP in the morning. -furosemide 40 mg q.d. Assessment & Plan (06/22/2021 1:00 AM LOG MARKER): Home medications resumed with hold parameters. Will hold diuretics until we can repeat BMP in the morning. Assessment & Plan (02/05/2019 6:45 AM CDT): Holding lisinopril. Continue with metoprolol and hydralazine. Will start on hydralazine 10 mg IV q.4 hours as needed for blood pressure elevation above 160. Titrate the dose of oral antihypertensives as needed Angio-edema Resolved Problems Problem Noted Date Diagnosed Date Resolved Date Obstructed Lara catheter 08/22/2018 KARLA (acute kidney injury) 07/02/2018 Assessment & Plan (07/06/2018 11:31 AM LOG MARKER): Complicated DM management and increases risk of hypoglycemia. Creat is at 1.21 (07/06) Assessment & Plan (07/12/2018 12:37 PM LOG MARKER): Creat stable 1.00 Continue to hold diuresis Avoid nephrotoxins Will monitor High risk medication use 07/01/2018 Assessment & Plan (07/14/2018 12:58 PM LOG MARKER): The use of intensive insulin therapy in the setting of variable po intake, tube feeds, altered mental status, increases the risk of glycemic variability. Will closely monitor blood glucose to prevent hypo or hyperglycemia. Assessment & Plan (07/13/2018 12:53 PM LOG MARKER): The use of intensive insulin therapy in the setting of variable po intake, tube feeds, altered mental status, increases the risk of glycemic variability. Will closely monitor blood glucose to prevent hypo or hyperglycemia. Assessment & Plan (07/10/2018 1:52 PM LOG MARKER): The use of intensive insulin therapy in the setting of variable po intake, tube feeds, altered mental status, increases the risk of glycemic variability. Will closely monitor blood glucose to prevent hypo or hyperglycemia. Assessment & Plan (07/09/2018 3:51 PM LOG MARKER): The use of intensive insulin therapy in the setting of variable po intake, tube feeds, altered mental status, increases the risk of glycemic variability. Will closely monitor blood glucose to prevent hypo or hyperglycemia. Assessment & Plan (07/08/2018 12:20 PM LOG MARKER): The use of intensive insulin therapy in the setting of variable po intake, tube feeds, altered mental status, increases the risk of glycemic variability. Will closely monitor blood glucose to prevent hypo or hyperglycemia. Assessment & Plan (07/07/2018 11:58 AM LOG MARKER): The use of intensive insulin therapy in the setting of variable po intake, tube feeds, altered mental status, increases the risk of glycemic variability. Will closely monitor blood glucose to prevent hypo or hyperglycemia. Assessment & Plan (07/06/2018 11:31 AM LOG MARKER): The use of intensive insulin therapy in the setting of variable po intake, tube feeds, altered mental status, increases the risk of glycemic variability. Will closely monitor blood glucose to prevent hypo or hyperglycemia. Assessment & Plan (07/01/2018 3:03 PM LOG MARKER): The use of intensive insulin therapy in the setting of variable po intake, tube feeds, altered mental status, increases the risk of glycemic variability. Will closely monitor blood glucose to prevent hypo or hyperglycemia. Leukocytosis 06/22/2018 06/24/2018 Overview (06/22/2018): Preop Proteus UTI. Periop vanc/ancef. Ceftriaxone 7 day course completed. Assessment & Plan (06/23/2018 2:11 PM LOG MARKER): WBC 11.2 (11.3). Pt remains afebrile and is not requiring pressor support. 2/7 UA negative and 2/7 BC revealed NGTD. C-diff neg on 06/22. - Discontinued empiric coverage for PNA (Cefepime 1000mg q12h and Vanc 1250 mg q24h) - F/U on hardin cultures Assessment & Plan (06/23/2018 4:43 AM LOG MARKER): WBC 11.3. Pt remains afebrile and is not requiring pressor support. 2/7 UA negative and 2/7 BC revealed NGTD. C-diff neg - Cefepime 1000mg q12h - Vanc 1250 mg q24h - Vanc trough in AM - F/U on hardin cultures - Consider exchanging lara and repeating hardin culture if patient becomes febrile and/ or signs of sepsis (e.g hypotensive, leukocytosis) Assessment & Plan (06/22/2018 6:49 PM LOG MARKER): WBC 11.3. Pt remains afebrile and is not requiring pressor support. 2/7 UA negative and 2/7 BC revealed NGTD. - Cefepime 1000mg q12h - Vanc 1250 mg q24h - Vanc trough in AM - F/U on hardin cultures - CDiff pending - Consider exchanging lara and repeating hardin culture if patient becomes febrile and/ or signs of sepsis (e.g hypotensive, leukocytosis) Hypernatremia 06/14/2018 06/28/2018 Assessment & Plan (06/27/2018 3:45 PM LOG MARKER): Likely 2/2 aggressive diuresis. Sodium stable at 148. Metolazone 10mg BID today. FWF at 50ml continuous via enteral route FB (+) 900ml - Continue FWF to 50ml/hr. - FBG even Assessment & Plan (06/26/2018 11:44 PM LOG MARKER): Likely 2/2 aggressive diuresis. Sodium down to 147 (148). Metolazone 10mg BID today. - Continue FWF to 50ml/hr pending AM BMP - FBG even Assessment & Plan (06/26/2018 3:01 PM LOG MARKER): Sodium rising overnight to 148 (150). Likely 2/2 aggressive diuresis. Free water deficit to correct to 145 is 1.2 L. - Continue FWF to 50ml/hr - Diuresis with Metolazone 10mg BID - FBG even - Repeat BMP at 1400 1400: BMP revealed Assessment & Plan (06/25/2018 1:26 PM LOG MARKER): Sodium rising overnight to 151 (147). Likely 2/2 aggressive diuresis. Free water deficit to correct to 145 is 2.4L. - Increase FWF to 50ml/hr continuous - D/c lasix - Metolazone 10mg BID - FBG even - Repeat BMP at noon Assessment & Plan (06/25/2018 5:25 AM LOG MARKER): Sodium rising overnight to 151 (147). Likely relating to diuresis. - increase FWF to 100ml Q4 -Consider Metolazone with further diruesis Assessment & Plan (06/24/2018 12:30 PM LOG MARKER): Na up to 147 from 144. May be in part related to precedex which has now been discontinued. - increase FWF to 60 ml Q4. Assessment & Plan (06/15/2018 3:27 PM LOG MARKER): Na with some downward trend to 145, - stop D5W - FWF 60ml Q4H when SBFT in place Assessment & Plan (06/14/2018 4:04 PM LOG MARKER): Na up to 148 with D5W at 25ml/hr initiated yesterday. Now improved with Na 145. - Decrease D5W to 10ml/hr as carrier - FWF 60ml Q4H when SBFT in place Acute respiratory failure with hypoxemia 06/13/2018 06/24/2018 Assessment & Plan (06/23/2018 5:56 PM LOG MARKER): Extubated to NC on 06/22. AM CXR revealed worsening bibasilar atelectasis, mild pulmonary edema, and left pleural effusion. Net (+) 1.7 L - PT/OOBTC/AMB - Wean FiO2 for sats > 92% - scheduled albuterol and atrovent - IS/acapella as pt able to participate, NT suction as needed - Diuresis with Lasix 40 mg PT BID and aldactone 25 mg PT Daily - FBG (-) 1 Liter 1300: Patient is currently net (+) 500mL. Will continue with current diuresis plan and spot dose lasix this PM as clinically indicated. 1400: CXR ordered s/p CT removal (per surgery orders). Will F/U on read. 1500: CXR without pneumothorax. Will continue diuresis plan overnight to achieve a FBG (-) 1 Liter. Assessment & Plan (06/23/2018 4:05 AM LOG MARKER): Extubated to MO O2 this pm. Net (+) 1.3 L - PT/OOBTC/AMB - Wean FiO2 for sats > 92% - scheduled albuterol and atrovent - IS/acapella as pt able to participate, NT suction as needed - Consider diuresis for increased O2 Requirements Assessment & Plan (06/22/2018 6:49 PM LOG MARKER): Intubated on 06/21 for hypoxemia and CXR revealing L layering effusion, LLL collapse and bibasilar atelectasis. Currently, intubated on dex gtt and CXR revealed bibasilar atelectasis and left pleural effusion. Net (+) 1.3 L - plan for PSV trial with goal of extubation - PT/OOBTC/AMB - Wean FiO2 for sats > 92% - scheduled albuterol and atrovent 1530: Precedex gtt off. Pt FC with both upper and lower extremities. Will attempt PSV trial. 1630: Tolerating PSV Trial. Will place order to extubate 1645: Extubated to 4LNC. Wean O2 for sats > 92% , OOBTC/IS/acapella as pt able to participate, NT suction as needed, Consider diuresis with Lasix and metolazone for increased O2 Requirements Assessment & Plan (06/17/2018 5:29 PM LOG MARKER): 2L NC. Difficulty participating with pulm hygiene due to delirium. CXR showing L layering effusion, LLL collapse and bibasilar atelectasis slightly improved today. - Lasix gtt at 5 mg and metolazone for diuresis - OOBTC/IS/acapella as pt able to participate - NT suction as needed - Wean O2 for sats > 92% Assessment & Plan (06/16/2018 8:13 PM LOG MARKER): 2L NC. Difficulty participating with pulm hygiene due to delirium. CXR showing L layering effusion, LLL collapse and bibasilar atelectasis. - Lasix and metolazone for diuresis - OOBTC/IS/acapella as pt able to participate - NT suction as needed - Wean O2 for sats > 92% -will need to consider PEP therapy to assist with pulm hygiene Assessment & Plan (06/15/2018 3:18 PM LOG MARKER): 2L NC. Difficulty participating with pulm hygiene due to delirium. CXR showing L layering effusion and bibasilar atelectasis. - 80 lasix and 10 metolazone BID for FBG negative 1L - OOBTC/IS/acapella as pt able to participate - NT suction as needed - Wean O2 for sats > 92% Assessment & Plan (06/14/2018 3:41 PM LOG MARKER): Extubated to CPAP POD 0. Now on 2L NC. NT suctioned overnight as pt unable to clear secretions and cannot participate with incentive spirometer due to delirium. CXR with continued small L effusion and bibasilar atelectasis. - 60 lasix and 10 metolazone for FBG negative 1-2L - OOBTC/IS/acapella as pt able to participate - NT suction as needed - Wean O2 for sats > 92% Assessment & Plan (06/13/2018 4:00 PM LOG MARKER): Extubated to CPAP 10 last night. Now transitioned to 5L NC. CXR with small L effusion and bibasilar atelectasis. 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 70% L ICA stenosis. He also has a history of binge drinking 12 beers and a pint of whiskey per week however would have expected withdrawal earlier in course Assessment & Plan (07/12/2018 12:36 PM LOG MARKER): Continue sleep hygiene and night-time seroquel Multiple therapies (PT, OT, Speech) CTM Geriatrics consulted- recommendations for an MRI of the brain to r/o ischemia, EEG to r/o seizures Continue Ramelteon 3/ patient confused and agitated after procedure DC amiodarone, DC tamsulosin, decrease seroquel (per Dr. Briseno) 3/2 sitter at bedside for pt safety. Oriented to self and location. Remains implusive. Will continue to monitor. 3/3 Remains with sitter, impulsive. Oriented x 2 Assessment & Plan (06/27/2018 3:00 PM LOG MARKER): Baseline slurred speech 2/2 old CVA. Seroquel decreased to 75mg at bedtime due to prolonged QTc - Continue Seroquel 75mg at bedtime, pt reportedly slept well overnight - agitation improving, stop haldol - Sleep hygiene - Encourage daytime activity, frequent reorientation - Maintain mag level closer to 3 in light of prolonged QTc Assessment & Plan (06/26/2018 11:42 PM LOG MARKER): Baseline slurred speech 2/2 old CVA. Held Seroquel and Haldol overnight last night 2/2 prolonged QTc and 5 beat run of asymptomatic VTach. - Decrease Seroquel to 75mg PT qHS - QTc 536 on EKG tonight, okay to give seroquel dose - Haldol 2 mg ivp Q6h PRN for severe agitation - Sleep hygiene - Encourage daytime activity, frequent reorientation - Maintain mag level closer to 3 in light of prolonged QTc Assessment & Plan (06/26/2018 2:42 PM LOG MARKER): Baseline slurred speech 2/2 old CVA. Held Seroquel and Haldol overnight 2/2 prolonged QTc 530 and 5 beat run of asymptomatic VTach. - On scheduled Amio and seroquel. Will evaluate QTc with Daily EKGs, and hold Seroquel for QTc > 550. - Decrease Seroquel to 75mg PT qHS - Haldol 2 mg ivp Q6h PRN for severe agitation - Sleep hygiene - Encourage daytime activity, frequent reorientation - Maintain mag level > 3 in light of prolonged QTc Assessment & Plan (06/25/2018 5:08 PM LOG MARKER): Baseline slurred speech 2/2 CVC. Seroquel dose increased to 100mg QHS yesterday. Received haldol x4 over the last 24 hours - Daily EKG prior to seroquel dose to evaluate QTc while on haldol, seroquel, and amio; hold seroquel for QTc >550 - Increase Seroquel to 150mg PT qHS - Haldol 2 mg ivp Q6h PRN for severe agitation - Sleep hygiene - Encourage daytime activity, frequent reorientation - Maintain mag level > 3 in light of prolonged QTc Assessment & Plan (06/24/2018 12:19 PM LOG MARKER): Baseline slurred speech 2/2 CVC. Precedex gtt resumed yesterday evening with patient striking out at staff. - d/c precedex gtt as this is not a long-term solution and precludes ICU discharge - increase Seroquel to 100mg PT qHS - Haldol 2 mg ivp PRN for severe agitation - sleep hygiene - Encourage daytime activity, frequent reorientation - maintain mag level > 3 in light of prolonged QTc Assessment & Plan (06/23/2018 9:02 PM LOG MARKER): Baseline decreased mentation with slurred speech 2/2 CVA and developmental delay. Remains agitated and swinging at staff during care. Failed previous swallow eval. SBFT in place and TF at goal. On dex 1.5 and restarting Seroquel. - Precedex gtt - Seroquel 75mg PT qHS - Haldol PRN agitation - Discontinued oxy PRN. Will attempt to avoid narcotics 2/2 hypersomnia delirium. - Encourage daytime activity, frequent reorientation, minimize interruptions in sleep Assessment & Plan (06/23/2018 2:05 PM LOG MARKER): Baseline decreased mentation with slurred speech 2/2 CVA and developmental delay. Per CCU Report, pt non-verbal s/p extubation 2/2 and agitated requiring seroquel and precedex. CT head 2/5 unremarkable. TSH WNL, BCx NGTD, u/a neg. Ammonia 34, B12 347, HIV negative. Currently, patient is awake and alert x1, HERNDON, FC, equal strength bilaterally. -Failed previous swallow eval. SBFT in place and TF at goal. Since pt is more alert, plan for FEES to re-evaluate swallow this AM. - Discontinue Precedex gtt - Seroquel 75mg PT qHS - Haldol PRN agitation - Discontinued oxy PRN. Will attempt to avoid narcotics 2/2 hypersomnia delirium. - Encourage daytime activity, frequent reorientation, minimize interruptions in sleep Assessment & Plan (06/23/2018 4:06 AM LOG MARKER): Baseline decreased mentation with slurred speech 2/2 CVA and developmental delay. Per CCU Report, pt non-verbal s/p extubation 2/2 and agitated requiring seroquel and precedex. CT head 2/5 unremarkable. TSH WNL, BCx NGTD, u/a neg. Ammonia 34, B12 347, HIV negative -Failed previous swallow eval. SBFT in place and TF at goal. - Haldol PRN - Try to avoid using Dex if possible - Encourage daytime activity, frequent reorientation, minimize interruptions in sleep Assessment & Plan (06/22/2018 6:57 PM LOG MARKER): Baseline decreased mentation with slurred speech 2/2 CVA and developmental delay. Per CCU Report, pt non-verbal s/p extubation 2/2 and agitated requiring seroquel and precedex. CT head 06/16 unremarkable. TSH WNL, BCx NGTD, u/a neg. Ammonia 34, B12 347, HIV negative -Failed previous swallow eval. SBFT in place and TF at goal. -dc'd Precedex and Seroquel 2/2 drowsy on arrival -Consider brain MRI if no improvement -Haldol PRN - Encourage daytime activity, frequent reorientation, minimize interruptions in sleep - Consider head CT if mental status does not improve given stroke history 1900: Pt delirious following extubation. 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 70% L ICA stenosis. + history for ETOH abuse. Restarted low dose precedex gtt Assessment & Plan (06/17/2018 5:32 PM LOG MARKER): Pt delirious following extubation. 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 70% L ICA stenosis. + history for ETOH abuse - avoid ativan -Haldol PRN -seroquel increased to 75 mg [id number] - SBFT with enteral feeds, failed swallow - Encourage daytime activity, frequent reorientation, minimize interruptions in sleep - Likely past the window for ETOH withdrawal - Consider head CT if mental status does not improve given stroke history - Thiamine and folic acid Assessment & Plan (06/16/2018 8:17 PM LOG MARKER): Pt delirious following extubation. 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 70% L ICA stenosis. + history for ETOH abuse - received ativan overnight for delirium, difficulty rousing pt this morning, will avoid further use of ativan -seroquel 50 BID, will increase to TID once pt is more wakeful (following ativan) - SBFT with enteral feeds, failed swallow - Encourage daytime activity, frequent reorientation, minimize interruptions in sleep - Likely past the window for ETOH withdrawal - Consider head CT if mental status does not improve given stroke history - Thiamine and folic acid Assessment & Plan (06/15/2018 3:25 PM LOG MARKER): Pt delirious following extubation. 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 70% L ICA stenosis. - Precedex at 0.3 - SBFT with enteral feeds, failed swallow - Encourage daytime activity, frequent reorientation, minimize interruptions in sleep - Likely past the window for ETOH withdrawal - Consider head CT if mental status does not improve given stroke history - Thiamine and folic acid Assessment & Plan (06/14/2018 3:52 PM LOG MARKER): Pt delirious following extubation. 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 70% L ICA stenosis. He also has a history of binge drinking 12 beers and a pint of whiskey per week. Concerned that delirium could be some component of alcohol withdrawal but would have expected earlier in course as pt was admitted on 06/04. - Start low dose Precedex infusion as this will help with pain, delirium, and possible withdrawal - Place small bowel feeding tube to safely administer meds and start tube nutrition - Will get formal swallow eval when pt will cooperate - Encourage daytime activity, frequent reorientation, minimize interruptions in sleep - Monitor for signs of alcohol withdrawal - Consider head CT if mental status does not improve given stroke history - Thiamine and folic acid Assessment & Plan (06/13/2018 4:22 PM LOG MARKER): Pt delirious following extubation last night. Per chart review, pt has history of R cerebellar CVA in 2012 but pt denied this on admission 06/04. 70% L ICA stenosis on preop workup. He also has a history of binge drinking 12 beers and a pint of whiskey per week. - Encourage daytime activity, frequent reorientation, minimize interruptions in sleep - Monitor for signs of alcohol withdrawal - Consider head CT if mental status does not improve given stroke history Acute pain 06/12/2018 06/25/2018 Assessment & Plan (06/24/2018 12:16 PM LOG MARKER): Patient denies pain on exam. - avoid narcotics in light of delirium - Tylenol PRN Assessment & Plan (06/23/2018 2:07 PM LOG MARKER): Patient denies pain on exam. - Discontinue Dex gtt - Dc'd oxy 2/2 hypersomnia delirium - Tylenol PRN pain 1300: Patient remain calm s/p discontinuation of precedex gtt. Continues to FC, HERNDON, and A&Ox1. Assessment & Plan (06/22/2018 6:28 PM LOG MARKER): Currently, drowsy on precedex gtt and not endorsing pain. - Discontinue Dex gtt with plan to extubate - Discontinue seroquel 2/2 drowsiness on exam - Tylenol and oxycodone PRN pain 1827: restarted Precedex gtt 2/2 agitation. Assessment & Plan (06/17/2018 5:29 PM LOG MARKER): Pt continues to be delirious. Moans but denies discomfort. Receiving Dilaudid PRN. Seroquel given with improvement. Ativan given overnight, pt very lethargic this morning, difficult to arouse -avoid ativan -scheduled seroquel 75 mg Q 8hours -avoid opiates, benzos - Tylenol and oxycodone PRN Assessment & Plan (06/16/2018 8:12 PM LOG MARKER): Pt continues to be delirious. Moans but denies discomfort. Receiving Dilaudid PRN. Seroquel given with improvement. Ativan given overnight, pt very lethargic this morning, difficult to arouse -avoid ativan -scheduled seroquel BID, will switch to TID once pt is more awake -avoid opiates, benzos - Tylenol and oxycodone PRN Assessment & Plan (06/15/2018 3:15 PM LOG MARKER): Pt continues to be delirious. Moans but denies discomfort. Receiving Dilaudid PRN. Seroquel given with improvement -scheduled seroquel BID -avoid opiates, benzos - Tylenol and oxycodone PRN Assessment & Plan (06/14/2018 3:40 PM LOG MARKER): Pt continues to be delirious. Moans in pain occasionally. Receiving Dilaudid PRN. - Continue dilaudid PRN 0.25 Q1H until enteral access available then will start scheduled Tylenol and PRN oxy Assessment & Plan (06/13/2018 4:06 PM LOG MARKER): Pt delirious. Moaning in pain. - Dilaudid PRN 0.25 Q1H - Schedule Tylenol and oxy PRN if pt passes bedside swallow Assessment & Plan (06/12/2018 3:06 PM LOG MARKER): Expected post median thoracotomy surgery. -Fentanyl IV prn while intubated - Scheduled Tylenol - prn oxy - lido patches Diarrhea 06/11/2018 06/13/2018 Assessment & Plan (06/11/2018 1:51 PM LOG MARKER): Reported frequent diarrhea C diff ordered and pending Dr Silva aware. Scabies 06/05/2018 06/11/2018 Assessment & Plan (06/10/2018 12:32 PM LOG MARKER): Dermatology consult-appreciate recs Add Sarna lotion for pruritis- pt does not have Scabies Assessment & Plan (06/07/2018 12:47 PM LOG MARKER): Dermatology consult-to be called on Friday Scabies vs bed bugs (OSH treated with permethrin on 06/05) Chest pain 06/04/2018 08/23/2018 Assessment & Plan (06/04/2018 3:20 AM LOG MARKER): ACS. Troponin trending up. 0.14 to 0.25. Will await 3rd troponin. EKG showed sinus tachycardia with occasional PVCs, nonspecific ST changes in leads [address]. No obvious ST changes. Patient is currently on a heparin drip. Cardiology has been consulted will await their evaluation. NPO until Cardiology sees patient. Hyperglycemia 06/04/2018 08/23/2018 Assessment & Plan (06/04/2018 3:15 AM LOG MARKER): HbA1c is 6. Patient is prediabetic. Will place him on a low-dose sliding scale. Pulmonary edema 06/04/2018 06/25/2018 Assessment & Plan (06/25/2018 5:22 AM LOG MARKER): Mild pulmonary edema. Post-respiratory failure requiring prior reintubation. Coarse breath sounds bilaterally. Lasix 40mg TID today -Lasix TID -FBG - 500ml to -1L -Aldactone Additional Care: Overnight worsening hypernatremia. Held off on further diuresis. May benefit from Metolazone. Assessment & Plan (06/08/2018 10:47 AM LOG MARKER): Continue IV lasix FBG - 1 L Assessment & Plan (06/07/2018 12:48 PM LOG MARKER): Continue IV lasix Assessment & Plan (06/04/2018 3:12 AM LOG MARKER): No prior history of CHF. EF was 55-60% in 2013. Will order an echo. Patient received Lasix in the ED. NSTEMI (non-ST elevated myoc ardial infarction) 06/04/2018 08/23/2018 Stable angina pectoris 06/03/201806/23 Overview (06/05/2018): Added automatically from request for surgery [id number] Assessment & Plan (06/11/2018 1:48 PM LOG MARKER): Pre-OP CABG-continue aspirin, statin, beta maximino Continue heparin gtt Remains pain free TTE showed EF < 30%; Viability : normal viability of the whole left ventricle Vein mapping completed and in EPIC; Carotids > 70%- vascular consulted and ok to proceed with surgery- will address carotids as OP after recovery Assessment & Plan (06/07/2018 12:44 PM LOG MARKER): Pre-OP CABG-aspirin, statin, beta maximino Continue heparin gtt Check carotids, vein mapping, TTE, viability study Stroke 08/23/2018 Immunizations Immunization Administration Dates Next Due Pfizer SARS-CoV-2 Monovalent Vaccination (12+ Yrs) PURPLE 06/22/2021(Deferred: Patient decision) Social History Tobacco Use Types Packs/Day Years Used Date Smoking Tobacco: Former Cigarettes 2 25 0 06/12/1993 - 06/12/2018 Smokeless Tobacco: Never Tobacco Cessation:Counseling Given: Not Answered Alcohol Use Standard Drinks/Week Comments No 0 (1 standard drink = 0.6 oz pur e alcohol) OASIS D0700: Social Isolation Answer Da te Recorded Frequency of experiencing loneliness or isolatio n Never 05/27/2024 OASIS A1250: Transportation Answer Date Recorded Lack of Transportation (Medical) No 05/27/2024 Lack of Transportation (Non-Medical) No 05/27/2024 Patient Unable or Declines to Respond No 05/27/2024 OASIS B1300: Health Literacy Answer Immanuel e Recorded Frequency of needing help to read materials from doctor or pharmacy Always 05/27/2024 [facility] Utilities Answer Date Recorded In the past 12 months has th e electric, gas, oil, or water company threatened to shut off services in your home? No 12/01/2023 Social Connection and Isolation Panel [NHANES] A nswer Date Recorded In a typical week, how many times do you talk on the phone with family, friends, or neighbors? Three times a week 12/01/19 How often do you get togethe r with friends or relatives? Three times a week 12/01/2023 How often do you attend chur ch or lutheran services? 1 to 4 times per year 12/01/2023 Do you belong to any clubs o r organizations such as jehovah's witness groups, unions, fraternal or athletic groups, or school groups? Yes 12/01/2023 How often do you attend meet ings of the clubs or organizations you belong to? 1 to 4 times per year 12/01/2023 Are you , , di vorced, , never , or living with a partner? 12/01/2023 AUDIT-C Answer Date Recorded Q1: How often do you have a drink containing alc ohol? Never 06/21/2021 Q2: How many drinks containi ng alcohol do you have on a typical day when you are drinking? Patient declined 06/21/2021 Q3: How often do you have si x or more drinks on one occasion? Never 06/21/2021 Overall Financial Resource Strain (CARDIA) Answe r Date Recorded How hard is it for you to pa y for the very basics like food, housing, medical care, and heating? Not very hard 12/01/2023 PHQ-2 Answer Date Recorded PHQ-2 Score 0 12/31/2018 Hunger Vital Sign Answer Date Recorded Within the past 12 months, y ou worried that your food would run out before you got the money to buy more. Never true 12/01/19 24 Within the past 12 months, t he food you bought just didn't last and you didn't have money to get more. Never true 12/01/2023 PRAPARE - Transportation Answer Date Re corded In the past 12 months, has l ack of transportation kept you from medical appointments or from getting medications? No 11/10 In the past 12 months, has l ack of transportation kept you from meetings, work, or from getting things needed for daily living? No 12/01/2023 Housing Stability Vital Sign Answer Immanuel e Recorded In the last 12 months, was t here a time when you were not able to pay the mortgage or rent on time? No 06/30/2023 In the last 12 months, how many places have you lived? 1 06/30/2023 In the last 12 months, was t here a time when you did not have a steady place to sleep or slept in a custodial (including now)? No 06/30/2023 Housing Stability Vital Sign Answer Immanuel e Recorded In the last 12 months, was t here a time when you were not able to pay the mortgage or rent on time? No 12/01/2023 In the past 12 months, how m any times have you moved where you were living? 0 12/01/2023 At any time in the past 12 m [facility], were you homeless or living in a custodial (including now)? No 12/01/2023 Personal Safety Answer Date Recorded Have you ever been in or are you currently in a harmful physical or emotional relationship or is someone making you feel afraid or unsafe? Denies 11/29/2023 Sex and Gender Information Value Date Recorded Sex Assigned at Not on file Legal Sex Male 2:47 AM LOG MARKER Gender Identity Not on file Sexual Orientation Not on file Last Filed Vital Signs Vital Sign Reading Time Taken Comments Blood Pressure 118/62 05/27/2024 9:31 AM LOG MARKER Pulse 78 05/27/2024 9:31 AM LOG MARKER Temperature 36.6 C (97.9 F) 05/27/2024 9:31 AM LOG MARKER Respiratory Rate 18 05/27/2024 9:31 AM LOG MARKER Oxygen Saturation 96% 05/27/2024 9:31 AM LOG MARKER Inhaled Oxygen Concentration - - Weight 77.2 kg (170 lb 3.2 oz) 12/02/2023 6:06 A M CDT Height 170.2 cm (5' 7) 11/30/2023 3:45 PM CDT Body Mass Index 26.66 11/30/2023 3:45 PM CDT Plan of Treatment Not on file Medical Devices Implanted Type Area Loan Auditor Device Identifier Shelf Expiration Date Model / Serial / Lot [employer] [id number] Herber[employer] s Physio Ii 28mm Franco Sew Mitral Ring - [id number] - [id number] Implanted:Qty: 1 on 06/12/2018 by Salvador Malone MD at [facility] N/A: Heart [employer] 03/04/2023 [id number] / [id number] / Procedures Procedure Name Priority Date/Time Associated Diagnosis Comments EGFR Routine 12/02/2023 6:58 AM CDT HEMOGLOBIN A1C Routine 06/27/2023 12:17 PM LOG MARKER CTA ABDOMINAL AORTA AND BILATERAL ILIOFEMORAL RUNOFF ED 06/25/2023 9:20 PM LOG MARKER LIPID PANEL Routine 03/21/2021 10:55 AM LOG MARKER PSA SCREEN Routine 03/21/2021 10:55 AM LOG MARKER from Last 3 Months or Most Recently Relevant to Health Maintenance Results * eGFR (12/02/2023 6:58 AM CDT) eGFR 82 >=60 mL/min/1. 73 m2 Comment: Interpretive Data Reference Interval Normal >/= 90 mL/min/1.73m2 Mildly decreased* 60 - 89 mL/min/1.73m2 Mildly to moderately decreased 45 - 59 mL/min/1.73m2 Moderately to severely decreased 30 - 44 mL/min/1.73m2 Severely decreased 15 - 29 mL/min/1.73m2 Kidney Failure < 15 mL/min/1.73m2 *Relative to young adult level Estimated glomerular filtration rate is determined by the 2020 CKD-EPI equation recommended by the National Kidney Foundation (A Unifying Approach to GFR Estimation: Recommendations of the NKF-ASK Task Force on Reassessing the Inclusion of Race in Diagnosing Kidney Disease, JASN 2020). The CKD-EPI equation should not be used for patients with unstable renal function and has not been validated in children and those over 70. Current interpretive data was last reviewed 2021. Blood 12/02/2023 6:58 AM CDT 12/02/2023 7:23 AM CDT us Elliot Cuenca MD LAB BLOOD ORDERABLES Fi nal Result [facility] Department of Laboratories [place], [place] [id number] * (ABNORMAL) Hemoglobin A1c (06/27/2023 12:17 PM LOG MARKER) Hgb A1C 6.3(H) 4.0 - 5.6 % [facility] MCKEN[facility] Estimated Average Glucose 134 mg/dL LIZBETH MCKENNA Comment: The ADA recommends reporting an estimated Average Glucose (eAG) with all Hemoglobin A1c results using the equation derived from a study of 507 normal and diabetic adults. Minority populations were underrepresented and children were not included. (Diabetes Care 31:2681-7810, 2008). The eAG is not equivalent to a fasting glucose. Blood 06/27/2023 12:1 7 PM LOG MARKER 06/27/2023 12:33 PM LOG MARKER us Trenton Lancaster MD LAB BLOOD ORDERABLES Final Result [facility] MCKENNA [address] Department [place] [address] * CTA Abdominal Aorta And Bilateral Iliofemoral Runoff (06/25/2023 9:20 PM LOG MARKER) Anatomical Region Laterality Modality Body Bilateral Computed Tomogra phy 06/25/2023 9:05 PM LOG MARKER Impressions 06/27/2023 8:39 AM LOG MARKER 1. Compared to 04/11/2023, no significant change in the approximate 4.2 x 4.4 cm infrarenal abdominal aortic aneurysm with internal peripheral mural thrombus. 2. 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 Collateral flow reconstitutes the patent right popliteal artery which exhibits a few mild to moderate stenoses. 3. 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 Collateral flow reconstitutes a faint small-caliber portion of the mid right PROPOSAL DEVELOPMENT MANAGER. Segmental occlusion or severe focal stenosis involving the proximal right peroneal artery with the remainder of this vessel being patent. Once again noted is the segmental occlusion involving a portion of the proximal right SHERLYN with the remainder of this vessel being patent. Patent DPA. 4. Compared to 04/11/2023, chronic occlusion of the left superficial femoral artery. Collateral flow reconstitutes the patent left popliteal artery which exhibits a few scattered moderate to severe stenoses. 5. Occlusion of the majority of the left peroneal artery with reconstitution out of patent small-caliber portion in the region of the left ankle joint. A few scattered severe stenoses of the proximal left PROPOSAL DEVELOPMENT MANAGER with the remainder of this vessel being patent. Patent left SHERLYN / DPA. 6. Compared to the prior CTA abdomen/pelvis dated 04/11/2023, once again noted is the peripheral hypodense area within the superolateral right renal cortex (decreased in size compared to 04/11/2023) - likely focal renal infarct. 7. Small calcified gallstones, otherwise normal gallbladder. No biliary tract dilatation. Electronically signed by: Jayjay Pedraza M.D. Narrative 06/27/2023 8:39 AM LOG MARKER EXAMINATION: CT ANGIOGRAPHY OF THE ABDOMEN, PELVIS, AND LOWER EXTREMITIES WITH CONTRAST HISTORY: Bilateral lower extremity pain and mottling of the lower back. TECHNIQUE: CT angiography of the abdomen, pelvis, and lower extremities was performed following the uneventful intravenous administration of 124 ml Optiray-350. Vascular 3D images were generated on a dedicated workstation and also reviewed. COMPARISON: CTA ABDOMINAL AORTA AND BILATERAL ILIOFEMORAL RUNOFF 04/11/2023 FINDINGS: Aorta: Compared to 04/11/2023, no significant change in the approximate 4.2 x 4.4 cm infrarenal abdominal aortic aneurysm with internal peripheral mural thrombus. No aortic dissection. Celiac trunk and mesenteric arteries: Patent celiac artery and inferior mesenteric artery. Calcific plaque within the origin and proximal portion of the superior mesenteric artery producing approximate 50% stenosis 18 mm distal to its origin. Other proximal SFA scattered mild to moderate stenoses. Renal arteries: Scattered calcific plaque involving the patent renal arteries bilaterally. Moderate to severe focal stenosis of the origin of the left main renal artery. Right iliac arteries: Scattered calcific plaque throughout the right common iliac and external iliac arteries without evidence of severe stenosis. Occlusion of the majority of the proximal / mid right internal iliac artery. Right femoral/popliteal arteries: Patent right common femoral artery with scattered calcific plaque. Patent right PFA. 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 Collateral flow reconstitutes the patent right popliteal artery which exhibits a few mild to moderate stenoses. 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 Collateral flow reconstitutes a faint small-caliber portion of the mid right PROPOSAL DEVELOPMENT MANAGER. Segmental occlusion or severe focal stenosis involving the proximal right peroneal artery with the remainder of this vessel being patent. Once again noted is the segmental occlusion involving a portion of the proximal right SHERLYN with the remainder of this vessel being patent. Patent DPA. Left iliac arteries: Scattered calcific plaque throughout the left iliac arteries with scattered mild to moderate stenoses. Left femoral/popliteal arteries: Scattered calcific plaque involving a patent left common femoral artery. Patent left PFA. Compared to 04/11/2023, chronic occlusion of the left superficial femoral artery. Collateral flow reconstitutes a patent left popliteal artery which exhibits a few scattered moderate to severe stenoses. Left infrapopliteal arteries: Occlusion of the majority of the left peroneal artery with reconstitution out of patent small-caliber portion in the region of the left ankle joint. A few scattered severe stenoses of the proximal left PROPOSAL DEVELOPMENT MANAGER with the remainder of this vessel being patent. Patent left SHERLYN / DPA. Lungs: No acute infiltrate in either lung base. Liver: No mass. Gallbladder and bile ducts: Small calcified gallstones, otherwise normal gallbladder. No biliary tract dilatation. Pancreas: Unremarkable. No mass. No ductal dilation. Spleen: Normal. No splenomegaly. Adrenal glands: Normal. No mass. Kidneys and ureters: Compared to the prior CTA abdomen/pelvis dated 04/11/2023, once again noted is the peripheral hypodense area within the superolateral right renal cortex (decreased in size compared to 04/11/2023) - likely focal renal infarct. Stomach and bowel: Unremarkable. No obstruction. No mucosal thickening. Appendix: No evidence of appendicitis. Urinary bladder: Unremarkable. No mass. Reproductive: Unremarkable as visualized. Intraperitoneal space: Unremarkable. No free air. No significant fluid collection. Lymph nodes: No lymphadenopathy. Bones/joints: L5-S1 bilateral pars defects. Mild spinal degenerative changes. Prior median sternotomy. Soft tissues: Fat-containing umbilical hernia. Procedure Note Jayjay Pedraza MD - 06/27/2023 EXAMINATION: CT ANGIOGRAPHY OF THE ABDOMEN, PELVIS, AND LOWER EXTREMITIES WITH CONTRAST HISTORY: Bilateral lower extremity pain and mottling of the lower back. TECHNIQUE: CT angiography of the abdomen, pelvis, and lower extremities was performed following the uneventful intravenous administration of 124 ml Optiray-350. Vascular 3D images were generated on a dedicated workstation and also reviewed. COMPARISON: CTA ABDOMINAL AORTA AND BILATERAL ILIOFEMORAL RUNOFF 04/11/2023 FINDINGS: Aorta: Compared to 04/11/2023, no significant change in the approximate 4.2 x 4.4 cm infrarenal abdominal aortic aneurysm with internal peripheral mural thrombus. No aortic dissection. Celiac trunk and mesenteric arteries: Patent celiac artery and inferior mesenteric artery. Calcific plaque within the origin and proximal portion of the superior mesenteric artery producing approximate 50% stenosis 18 mm distal to its origin. Other proximal SFA scattered mild to moderate stenoses. Renal arteries: Scattered calcific plaque involving the patent renal arteries bilaterally. Moderate to severe focal stenosis of the origin of the left main renal artery. Right iliac arteries: Scattered calcific plaque throughout the right common iliac and external iliac arteries without evidence of severe stenosis. Occlusion of the majority of the proximal / mid right internal iliac artery. Right femoral/popliteal arteries: Patent right common femoral artery with scattered calcific plaque. Patent right PFA. 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 Collateral flow reconstitutes the patent right popliteal artery which exhibits a few mild to moderate stenoses. 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 Collateral flow reconstitutes a faint small-caliber portion of the mid right PROPOSAL DEVELOPMENT MANAGER. Segmental occlusion or severe focal stenosis involving the proximal right peroneal artery with the remainder of this vessel being patent. Once again noted is the segmental occlusion involving a portion of the proximal right SHERLYN with the remainder of this vessel being patent. Patent DPA. Left iliac arteries: Scattered calcific plaque throughout the left iliac arteries with scattered mild to moderate stenoses. Left femoral/popliteal arteries: Scattered calcific plaque involving a patent left common femoral artery. Patent left PFA. Compared to 04/11/2023, chronic occlusion of the left superficial femoral artery. Collateral flow reconstitutes a patent left popliteal artery which exhibits a few scattered moderate to severe stenoses. Left infrapopliteal arteries: Occlusion of the majority of the left peroneal artery with reconstitution out of patent small-caliber portion in the region of the left ankle joint. A few scattered severe stenoses of the proximal left PROPOSAL DEVELOPMENT MANAGER with the remainder of this vessel being patent. Patent left SHERLYN / DPA. Lungs: No acute infiltrate in either lung base. Liver: No mass. Gallbladder and bile ducts: Small calcified gallstones, otherwise normal gallbladder. No biliary tract dilatation. Pancreas: Unremarkable. No mass. No ductal dilation. Spleen: Normal. No splenomegaly. Adrenal glands: Normal. No mass. Kidneys and ureters: Compared to the prior CTA abdomen/pelvis dated 04/11/2023, once again noted is the peripheral hypodense area within the superolateral right renal cortex (decreased in size compared to 04/11/2023) - likely focal renal infarct. Stomach and bowel: Unremarkable. No obstruction. No mucosal thickening. Appendix: No evidence of appendicitis. Urinary bladder: Unremarkable. No mass. Reproductive: Unremarkable as visualized. Intraperitoneal space: Unremarkable. No free air. No significant fluid collection. Lymph nodes: No lymphadenopathy. Bones/joints: L5-S1 bilateral pars defects. Mild spinal degenerative changes. Prior median sternotomy. Soft tissues: Fat-containing umbilical hernia. IMPRESSION: 1. Compared to 04/11/2023, no significant change in the approximate 4.2 x 4.4 cm infrarenal abdominal aortic aneurysm with internal peripheral mural thrombus. 2. 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 Collateral flow reconstitutes the patent right popliteal artery which exhibits a few mild to moderate stenoses. 3. 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 Collateral flow reconstitutes a faint small-caliber portion of the mid right PROPOSAL DEVELOPMENT MANAGER. Segmental occlusion or severe focal stenosis involving the proximal right peroneal artery with the remainder of this vessel being patent. Once again noted is the segmental occlusion involving a portion of the proximal right SHERLYN with the remainder of this vessel being patent. Patent DPA. 4. Compared to 04/11/2023, chronic occlusion of the left superficial femoral artery. Collateral flow reconstitutes the patent left popliteal artery which exhibits a few scattered moderate to severe stenoses. 5. Occlusion of the majority of the left peroneal artery with reconstitution out of patent small-caliber portion in the region of the left ankle joint. A few scattered severe stenoses of the proximal left PROPOSAL DEVELOPMENT MANAGER with the remainder of this vessel being patent. Patent left SHERLYN / DPA. 6. Compared to the prior CTA abdomen/pelvis dated 04/11/2023, once again noted is the peripheral hypodense area within the superolateral right renal cortex (decreased in size compared to 04/11/2023) - likely focal renal infarct. 7. Small calcified gallstones, otherwise normal gallbladder. No biliary tract dilatation. Electronically signed by: Jayjay Pedraza M.D. us Kate Goyal MD IMG CT PROCEDURES Susan l Result * PSA screen (03/21/2021 10:55 AM LOG MARKER) PSA-Total 0.25 <=5.40 ng/mL [facility] Comment: Interpretive Data AGE SEX REFERENCE INTERVAL 0 minutes-150 years Female None 0 minutes-49 years Male None 50-59 years Male 0-3.90 60-69 years Male 0-5.40 70-79 years Male 0-6.20 80-150 years Male 0-6.20 Current interpretive data last revised 2018. Testing performed by: [facility], [address], [place]., [address] Blood 03/21/2021 10:5 5 AM LOG MARKER 03/21/2021 4:08 PM LOG MARKER us Jim De La Cruz MD LAB BLOOD ORDERABLES Susan l Result [facility] Department [place] [address] * (ABNORMAL) Lipid panel (03/21/2021 10:55 AM LOG MARKER) Cholesterol 210(H) 30 - 199 mg/dL [facility] Comment: Interpretive Data Ages < or = 19 years Acceptable: <170 mg/dL Borderline high: 170-199 mg/dL High: >or= 200 mg/dL Ages > or = 20 years Desirable: <200 mg/dL Borderline high: 200-239 mg/dL High: >or= 240 mg/dL Literature References: 1. Expert Panel on Integrated Guidelines for Cardiovascular Health and Risk Reduction in Children and Adolescents. Pediatrics 2011;128:S213 2. NCEP Expert Panel. Circulation 2004;110:227 Current Interpretive Data was last revised on 2017. Triglycerides 206(H) <=149 mg/dL [facility] Comment: Interpretive Data Ages < or = 9 years Acceptable: <75 mg/dL Borderline high: 75-99 mg/dL High: >or= 100 mg/dL Ages 10 to 20 years Acceptable: <90 mg/dL Borderline high: 90-129 mg/dL High: >or= 130 mg/dL Ages > or = 20 years Desirable: <150 mg/dL Borderline high: 150-199 mg/dL High: 200-499 mg/dL Very high: >or= 499 mg/dL Literature References: 1. Expert Panel on Integrated Guidelines for Cardiovascular Health and Risk Reduction in Children and Adolescents. Pediatrics 2011;128:S213 2. NCEP Expert Panel. Circulation 2004;110:227 Current Interpretive Data was last revised on 2017. HDL 30(L) >=40 mg/dL [facility] Comment: Interpretive Data Ages < or = 19 years Acceptable: >45 mg/dL Borderline low: 40-45 mg/dL Low: <40 mg/dL Ages > or = 20 years Desirable: >or= 60 mg/dL Low: <40 mg/dL Literature References: 1. Expert Panel on Integrated Guidelines for Cardiovascular Health and Risk Reduction in Children and Adolescents. Pediatrics 2011;128:S213 2. NCEP Expert Panel. Circulation 2004;110:227 Current Interpretive Data was last revised on 2017. LDL, calculated 139(H) <=129 mg/dL [facility] Comment: Interpretive Data Ages < or = 19 years Acceptable: <110 mg/dL Borderline high: 110-129 mg/dL High: >or= 130 mg/dL Ages > or = 20 years Optimal: <100 mg/dL Near optimal: 100-129 mg/dL Borderline high: 130-159 mg/dL High: >160 mg/dL Literature References: 1. Expert Panel on Integrated Guidelines for Cardiovascular Health and Risk Reduction in Children and Adolescents. Pediatrics 2011;128:S213 2. NCEP Expert Panel. Circulation 2004;110:227 Current Interpretive Data was last revised on 2017. Non-HDL Cholesterol 180 mg/dL [facility] Comment: Interpretive Data Ages < or = 19 years Acceptable: <120 mg/dL Borderline high: 120-144 mg/dL High: >145 mg/dL Ages > or = 20 years When triglycerides are >200 mg/dL, Non-HDL cholesterol is a secondary target of therapy with treatment goals that are 30 mg/dL greater than the LDL cholesterol target. Literature References: 1. Expert Panel on Integrated Guidelines for Cardiovascular Health and Risk Reduction in Children and Adolescents. Pediatrics 2011;128:S213 2. NCEP Expert Panel. Circulation 2004;110:227 Current Interpretive Data was last revised on 2017. Chol/HDL ratio 7 [facility] Blood 03/21/2021 10:5 5 AM LOG MARKER 03/21/2021 11:48 AM LOG MARKER us Jim De La Cruz MD LAB BLOOD ORDERABLES Susan brunson Result [facility] Department [place] [address] from Last 3 Months or Most Recently Relevant to Health Maintenance Insurance [facility] MEDICARE ADVANTAGE [place] [id number] R HMO REF [place] [id number] R HMO REF [place] [id number] UHC MEDICARE ADVANTAGE Advance Directives For more information, please contact: [phone] Documents on File Type Date Recorded Patient Patient Services Assistant Expl anation ADVANCE DIRECTIVE 07/04/2023 10:42 AM [employer] * Full Code (Latest Code Status on File) Date Activated Date Inactivated Comments 11/30/2023 3:37 PM 12/02/2023 6:09 PM * Full Code Date Activated Date Inactivated Comments 11/30/2023 3:36 PM 11/30/2023 3:37 PM * Full Code Date Activated Date Inactivated Comments 06/26/2023 1:27 PM 07/03/2023 6:08 PM * Full Code Date Activated Date Inactivated Comments 04/09/2023 12:22 AM 04/15/2023 5:22 PM * Full Code Date Activated Date Inactivated Comments 06/22/2021 12:57 AM 06/26/2021 10:33 PM Care Teams Strength And Conditioning Coach Relationship Specialty Start Date End Date Charlene Palomino NP [address] [place] [id number] PCP - General Nurse Practitioner 11/29/23 Kayla Cruz MD PhD Surgeon Vascular Surgery 08/23/18 Miah Merritt MD Surgeon Orthopedic Surgery 08/23/18 Mily Rush, PhD Psychologist Psychology 08/23/18 Naveen Ty MD Surgeon Vascular Surgery 08/23/18 Salvador Malone MD Referring Physician Cardiothoracic Surgery 08/23/18 Niles Reeves MD [address] [place] [address] [address] BL[address] [place] [address] Surgeon General Surgery 04/10/23 [place] [id number] [address] [address] Consulting Physician Vascular Surgery 07/02/23
--- OUTSIDE RECORDS SUMMARY | 2024-10-18 12:29 | XMS_ITS | Encounter Summary ---
Author Organization [facility] Healthcare Address [address] [place] [address] Care Team Providers Care Counting Machine Operator Name Role Phone No, Physician Primary Care Provider [phone] Vesta Mosley MD Primary Care Provider + [phone] No, Physician Primary Care Provider [phone] Vesta Mosley MD Primary Care Provider + [phone] Kayla Cruz MD PhD Unavailable [phone] Miah Merritt MD Unavailable [phone] Mily Rush PhD Unavailable [phone] Naveen Ty MD Unavailable [phone] Salvador Malone MD Unavailable [phone] Fransico Ardon DO Primary Care Provider [phone] Fransico Ardon DO Primary Care Provider +[phone] Jim De La Cruz MD Primary Care Provider [phone] Niles Reeves MD Unavailable [phone] Zachery Wood MD Unavailable [phone] Charlene Palomino NP Primary Care Provider [phone] Encounter Details Date Type Department Care Team (Late st Contact Info) Description 06/22/[address] 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 Paris Toth 06/26/2018 09/11/2012 09/11/2012 06/26/2018 1:[address] COVID19 Comment:Airborne + Contact precautions. Gown, Gloves, N95, eye protection or goggles. Precautions 07/05/21. Contact Interactive Marketing Strategist if patient worsens. ÁLVARO Montoya 06/27/21 06/26/2021 06/26/2021 07/05/2021 3:[address] COVID: Recovered Comment:Added based on recent COVID infection. 07/05/2021 07/26/2021 11/02/2021 3:06 AM C DT COVID: Suspected 04/08/2023 04/08/2023 04/08/2023 10:50 PM AIR CHIEF MARSHAL MRSA 04/09/2023 04/09/2023 10/06/2023 3:05 AM CDT COVID: Suspected 11/29/2023 11/29/2023 11/29/2023 6:22 PM CDT COVID19 11/29/2023 11/29/2023 12/12/2023 3:05 AM CDT COVID: Recovered Comment:Added based on recent COVID infection. 12/12/2023 12/16/2023 03/11/2024 3:05 AM C DT documented as of this encounter Care Teams Counting Machine Operator Relationship Specialty Start Date End Date Marianne Physician PCP - General 12/02/17 07/09/18 Vesta Mosley MD PCP - General Internal Medicine 07/10/18 07/13/18 No, Physician PCP - General 07/14/18 07/22/18 Vesta Mosley MD PCP - General Internal Medicine 07/23/18 08/23/18 Fransico Ardon DO PCP - General Family Medicine 09/14/18 12/23/18 Fransico Ardon DO PCP - General 12/24/18 06/03/21 Jim De La Cruz MD PCP - General 06/04/21 11/28/23 Charlene Palomino, DANIELA [address] [place] [address] [place] [address] PCP - General Nurse Practitioner 11/29/23 Kayla Cruz MD PhD Surgeon Vascular Surgery 08/23/18 Miah Merritt MD Surgeon Orthopedic Surgery 08/23/18 Mily Rush, PhD Psychologist Psychology 08/23/18 Naveen Ty MD Surgeon Vascular Surgery 08/23/18 Salvador Malone MD Referring Physician Cardiothoracic Surgery 08/23/18 Niles Reeves MD [address] [place] [address] [address] [address] Surgeon General Surgery 04/10/23 [place] [address] [facility] 1 [facility] [address] [place] [address] Consulting Physician Vascular Surgery 07/02/23 documented as of this encounter
--- OUTSIDE RECORDS SUMMARY | 2024-10-18 12:29 | XMS_ITS | Clinical Summary ---
Author Organization [facility] Address [address] [place] [address] Care Team Providers Care Director Of Operations Name Role Phone Kayla Cruz MD PhD Unavailable [phone] Miah Merritt MD Unavailable [phone] Mily Rush PhD Unavailable [phone] Naveen Ty MD Unavailable [phone] Salvador Malone MD Unavailable [phone] Niles Reeves MD Unavailable [phone] Zachery Wood MD Unavailable [phone] Charlene Palomino NP Primary Care Provider [phone] Allergies Active Allergy Reactions Criticality Noted Date [...] area every 12 hours for 4 weeks. [facility] [id number] in home 01/14/24 per RENETTA Ambrosio entered [...] 06/25/2021 Assessment & Plan (06/26/2021 8:19 AM WINDOWS PHONE DEVELOPER): Persistent left ankle pain. Denies h/o gout. Possible/likely gout. -uric acid level 8.9, not diagnostic for gout but given patient's symptoms possible contributor. -naproxen 500 bid- patient has decreased pain after starting treatment -certified genetic counselor about diet and food choices to avoid gout flares Assessment & Plan (06/25/2021 12:37 PM WINDOWS PHONE DEVELOPER): Persistent left ankle pain. Denies h/o gout. Possible/likely gout. -uric acid level 8.9, not diagnostic for gout but given patient's symptoms possible contributor. -naproxen 500 bid- patient has decreased pain after starting treatment Pain of left lower extremity 06/22/2021 Assessment & Plan (06/26/2021 8:13 AM WINDOWS PHONE DEVELOPER): Associated with LE edema. Exact etiology unclear [...] naproxen. Assessment & Plan (06/25/2021 11:26 AM WINDOWS PHONE DEVELOPER): Associated with LE edema. Exact etiology unclear [...] PRN Assessment & Plan (06/24/2021 1:44 PM WINDOWS PHONE DEVELOPER): Associated with LE edema. Exact etiology unclear [...] PRN Assessment & Plan (06/23/2021 4:13 PM WINDOWS PHONE DEVELOPER): Associated with LE pain. Exact etiology unclear [...] edema. Assessment & Plan (06/22/2021 12:58 AM WINDOWS PHONE DEVELOPER): Exact etiology unclear as patient cannot provide any history. Could be 2/2 CHF exac and/or uncontrolled DM. PT has been consulted. Fall precautions. Will treat suspect causes. Acute on chronic systolic (congestive) heart meliton prettyre 06/21/2021 Assessment & Plan (06/26/2021 8:19 AM WINDOWS PHONE DEVELOPER): Possible. Patient had 2 to 3+ pitting edema lower extremities. Bilateral +2 lower extremities edema, +3 left foot. Patient received 80 of Lasix in the ED. -Lasix 40 mg IV q.d. -carvedilol 25 mg b.i.d. -spironalactone 25mg every day -lower extremity edema resolved Assessment & Plan (06/25/2021 11:30 AM WINDOWS PHONE DEVELOPER): Possible. Patient had 2 to 3+ pitting edema lower extremities. Bilateral +2 lower extremities edema, +3 left foot. Patient received 80 of Lasix in the ED. -Lasix 40 mg IV q.d. -carvedilol 25 mg b.i.d. -lower extremity edema resolved Assessment & Plan (06/24/2021 2:05 PM WINDOWS PHONE DEVELOPER): Possible. Patient had 2 to 3+ pitting edema lower extremities. Bilateral +2 lower extremities edema, +3 left foot. Patient received 80 of Lasix in the ED. -Lasix 40 mg IV q.d. -carvedilol 25 mg b.i.d. -improving lower extremity edema Assessment & Plan (06/23/2021 3:14 PM WINDOWS PHONE DEVELOPER): Possible. Patient had 2 to 3+ pitting edema lower extremities. Bilateral +2 lower extremities edema, +3 left foot. Patient received 80 of Lasix in the ED. -Lasix 40 mg q.d. -carvedilol 25 mg b.i.d. Assessment & Plan (06/22/2021 1:02 AM WINDOWS PHONE DEVELOPER): Possible. Patient had 2 to 3+ pitting [...] (07/15/2019): Added automatically from request for surgery [id number] Assessment & Plan (06/26/2021 8:18 AM WINDOWS PHONE DEVELOPER): Bladder scan showed a little over 300 cc of urine. -Continue finasteride 25 mg every day Assessment & Plan (06/24/2021 1:48 PM WINDOWS PHONE DEVELOPER): Bladder scan showed a little over 300 cc of urine. -Continue finasteride 25 mg every day Assessment & Plan (06/23/2021 2:27 PM WINDOWS PHONE DEVELOPER): Bladder scan showed a little over 300 cc of urine. -Continue finasteride 25 mg every day Assessment & Plan (06/22/2021 1:01 AM WINDOWS PHONE DEVELOPER): Bladder scan showed a little over 300 cc of urine. Continue Proscar Coronary artery disease invo lving [place] coronary artery of [place] heart without angina pectoris 05/10/2019 Assessment & Plan (06/23/2021 1:25 PM WINDOWS PHONE DEVELOPER): Patient denies any chest pain or shortness of breath. -carvedilol 25 mg b.i.d. -isosorbide mononitrate 60 mg q.d. hold for SBP less than 115 Assessment & Plan (06/22/2021 1:00 AM WINDOWS PHONE DEVELOPER): Patient denies any chest pain or shortness [...] (11/26/2018): Added automatically from request for surgery [id number] Assessment & Plan (02/05/2019 6:44 AM CDT): [...] , no MS, mild TV regurgitation, Mild NC. Diastolic function: indeterminate Parasternal [place] Parasternal [place] Apical Four Chamber Apical Two Chamber Confirmed [...] 07/10/2018 Assessment & Plan (06/26/2021 8:17 AM WINDOWS PHONE DEVELOPER): Patient has a history of dysphagia. Per nurse he is having some difficulty swallowing pills. Prior history of CVA. -consult speech-recommended soft pureed diet after swallow eval Assessment & Plan (06/25/2021 11:29 AM WINDOWS PHONE DEVELOPER): Patient has a history of dysphagia. Per nurse he is having some difficulty swallowing pills. Prior history of CVA. -consult speech-recommended soft pureed diet after swallow eval Assessment & Plan (06/24/2021 1:46 PM WINDOWS PHONE DEVELOPER): Patient has a history of dysphagia. Per nurse he is having some difficulty swallowing pills. Prior history of CVA. -will consult speech for swallow eval Assessment & Plan (07/11/2018 1:50 PM WINDOWS PHONE DEVELOPER): 07/09 speech re- evaluated patient: Pt may have honey thick liquids by small sips with cup, 100% nursing supervision and continue dysphagia I pureed diet Will continue continuous tube feeding via SBFT, pt refusing to eat pureed diet 07/10 G tube placement 07/11 restart tube feeds Acute respiratory failure with hypoxia 9 Assessment & Plan (06/13/2018 4:17 AM WINDOWS PHONE DEVELOPER): As expected post surgery requiring CPB. No history of lung disease but 2ppd smoking history. Remaining intubated this evening. Eventually extubated to IN. - Wean supplemental O2 to keep sat >92% - Aggressive pulmonary toileting with incentive spirometry q1h - OOBTC and ambulate POD1 Additional Care: Post extubation CXR with small lung volumes. Sats low 90s on 6L. Placed on CPAP. Will plan to take off with improved oxygenation or by morning. Improving command following and verbalizing more overnight. Assessment & Plan (06/12/2018 3:06 PM WINDOWS PHONE DEVELOPER): As expected post surgery requiring CPB. No [...] bleeding. Assessment & Plan (07/11/2018 1:49 PM WINDOWS PHONE DEVELOPER): HGB 10.6 / HCT 33.7 Will monitor with am labs Assessment & Plan (06/26/2018 2:48 PM WINDOWS PHONE DEVELOPER): Stable. Hgb 10.6 (9). No pressor requirements. No signs of bleeding. - No indication for transfusion at this time - CBC daily Assessment & Plan (06/24/2018 12:14 PM WINDOWS PHONE DEVELOPER): Stable. Hgb 8 (8.2). No pressor requirements. No signs of bleeding. - No indication for transfusion at this time - CBC daily Assessment & Plan (06/23/2018 2:12 PM WINDOWS PHONE DEVELOPER): Stable. Hgb 8.2 (8.3). Not requiring pressor support. No signs of active bleeding. - No indication for transfusion at this time; however, consider if patient becomes hemodynamically unstable with increased pressor requirements or hgb < 8 and symptomatic - CBC daily Assessment & Plan (06/23/2018 4:44 AM WINDOWS PHONE DEVELOPER): Hgb 8.3. No current pressor requirements. No signs of active bleeding. - No indication for transfusion at this time; however, consider if patient becomes hemodynamically unstable with increased pressor requirements or hgb < 8 and symptomatic - CBC daily Assessment & Plan (06/22/2018 6:40 PM WINDOWS PHONE DEVELOPER): Hgb 7.8 (6.8) s/p 1 unit PRBCs. No current pressor requirements. No signs of active bleeding. - No indication for transfusion at this time; however, consider if patient becomes hemodynamically unstable with increased pressor requirements or hgb < 8 and symptomatic - CBC daily Assessment & Plan (06/17/2018 5:20 PM WINDOWS PHONE DEVELOPER): Post-op anemia, No pressor requirements. No signs of active bleeding. - No indication for transfusion at this time however will transfuse if pressor requirement increases. - Goal to keep Hb > 7.5 Assessment & Plan (06/16/2018 8:02 PM WINDOWS PHONE DEVELOPER): Post-op anemia, minimal pressor requirements. No signs of active bleeding. - No indication for transfusion at this time however will transfuse if pressor requirement increases. - Goal to keep Hb > 7.5 Assessment & Plan (06/15/2018 3:03 PM WINDOWS PHONE DEVELOPER): Post-op anemia, minimal pressor requirements. No signs of active bleeding. - No indication for transfusion at this time however will transfuse if pressor requirement increases. - Goal to keep Hb > 7.5 Assessment & Plan (06/12/2018 3:06 PM WINDOWS PHONE DEVELOPER): Hb is postop. No signs of active [...] cultures. Assessment & Plan (06/22/2018 6:01 PM WINDOWS PHONE DEVELOPER): Preop Proteus UTI. Periop vanc/ancef. Ceftriaxone 7 day course completed. 06/18: UA negative, BC revealed NGTD. - Cefepime 1000mg q12h - F/U on hardin cultures - Consider exchanging lara and repeating hardin culture if patient becomes febrile and/ or signs of Sepsis (e.g hypotensive, leukocytosis) Assessment & Plan (06/17/2018 5:34 PM WINDOWS PHONE DEVELOPER): Preop Proteus UTI. Received 1 dose of rocephin and periop vanc/ancef. Lara changed in OR. - Ceftriaxone for 5 days (7 day course total), course to be complete todaly Assessment & Plan (06/15/2018 3:28 PM WINDOWS PHONE DEVELOPER): Preop Proteus UTI. Received 1 dose of rocephin and periop vanc/ancef. Lara changed in OR. - Ceftriaxone for 5 days (7 day course total), course to be complete 06/17 Assessment & Plan (06/14/2018 3:45 PM WINDOWS PHONE DEVELOPER): Preop Proteus UTI. Received 1 dose of rocephin and periop vanc/ancef. Lara changed in OR. - Rocephin for 5 days (7 day course total) Assessment & Plan (06/13/2018 4:05 PM WINDOWS PHONE DEVELOPER): Preop Proteus UTI. Received 1 dose of rocephin and periop vanc/ancef. Lara changed in OR. - Resume Rocephin today for 5 days (7 day course total) Assessment & Plan (06/12/2018 4:53 PM WINDOWS PHONE DEVELOPER): Noted to have Proteus UTI prior to OR. Given Rocephin last pm. Prior to OR. Lara changed in OR - Sensitive to cefazolin - Complete periop abx H/O mitral valve repair 06/12/2018 Overview (06/15/2019): Mitral valve repair with 28 mm Physio mitral annuloplasty ring Bilateral carotid artery stenosis 06/10/2018 Overview (08/23/2018): History right hemisphere and cerebellar strokes Carotid stenosis Followed at [facility] last study July 2018 Conclusions: 1. The [...] ultrasound. Assessment & Plan (06/27/2018 3:29 PM WINDOWS PHONE DEVELOPER): CTA demonstrated significant L ROBERT. - Plan for OP follow up for carotid endarterectomy after discharge and recovery from CABG - daily asa Assessment & Plan (06/26/2018 2:57 PM WINDOWS PHONE DEVELOPER): CTA demonstrated significant L ROBERT. - Plan for OP follow up for carotid endarterectomy after discharge and recovery from CABG Assessment & Plan (06/24/2018 12:10 PM WINDOWS PHONE DEVELOPER): CTA demonstrated significant L ROBERT. - Plan for OP follow up for carotid endarterectomy after discharge and recovery from CABG Assessment & Plan (06/23/2018 2:14 PM WINDOWS PHONE DEVELOPER): CTA demonstrated significant L ROBERT. - Plan for OP follow up for carotid endarterectomy after discharge and recovery from CABG Assessment & Plan (06/17/2018 5:31 PM WINDOWS PHONE DEVELOPER): CTA demonstrated significant L ROBERT. - Plan for OP follow up for carotid endarterectomy after discharge and recovery from CABG Assessment & Plan (06/16/2018 8:14 PM WINDOWS PHONE DEVELOPER): CTA demonstrated significant L ROBERT. - Plan for OP follow up for carotid endarterectomy after discharge and recovery from CABG Assessment & Plan (06/12/2018 4:47 PM WINDOWS PHONE DEVELOPER): CTA demonstrated significant L ROBERT. - Plan for OP follow up for carotid endarterectomy after discharge and recovery from CABG Assessment & Plan (07/11/2018 1:38 PM WINDOWS PHONE DEVELOPER): Per Vascular consult note : ' OK [...] Flomax. Assessment & Plan (06/10/2018 12:31 PM WINDOWS PHONE DEVELOPER): Patient has lara catheter in place Continue Flomax Assessment & Plan (06/07/2018 12:40 PM WINDOWS PHONE DEVELOPER): Patient has lara catheter in place continue [...] RASHAD-inhibitor. Assessment & Plan (07/14/2018 12:59 PM WINDOWS PHONE DEVELOPER): The patient will need optimal glycemic control to promote healing. Assessment & Plan (07/13/2018 12:54 PM WINDOWS PHONE DEVELOPER): The patient will need optimal glycemic control to promote healing. Assessment & Plan (07/10/2018 1:52 PM WINDOWS PHONE DEVELOPER): The patient will need optimal glycemic control to promote healing. Assessment & Plan (07/09/2018 3:51 PM WINDOWS PHONE DEVELOPER): The patient will need optimal glycemic control to promote healing. Assessment & Plan (07/08/2018 12:20 PM WINDOWS PHONE DEVELOPER): The patient will need optimal glycemic control to promote healing. Assessment & Plan (07/07/2018 11:59 AM WINDOWS PHONE DEVELOPER): The patient will need optimal glycemic control to promote healing. Assessment & Plan (07/06/2018 11:29 AM WINDOWS PHONE DEVELOPER): The patient will need optimal glycemic control to promote healing. Assessment & Plan (07/01/2018 3:01 PM WINDOWS PHONE DEVELOPER): The patient will need optimal glycemic control to promote healing. Assessment & Plan (06/27/2018 3:47 PM WINDOWS PHONE DEVELOPER): S/p CABG x 4 And MV repair. Postop care to include: - ASA, statin daily - Metop 25 mg BID - Failed FEES, SBFT placed, enteral feeds at goal. Plan to repeat FEES on 06/29. - Colace/Senna dc'd 2/2 diarrhea - SCDs and SQ heparin for DVT prophylaxis - PT/OT Assessment & Plan (06/26/2018 2:47 PM WINDOWS PHONE DEVELOPER): S/p CABG x 4 And MV repair. [...] PT/OT Assessment & Plan (06/25/2018 12:31 PM WINDOWS PHONE DEVELOPER): S/p CABG x 4 And MV repair. Postop care to include: - ASA, statin daily - Failed FEES yesterday, SBFT placed, enteral feeds at goal. - Colace/Senna dc'd 2/2 diarrhea - SCDs and SQ heparin for DVT prophylaxis - PT/OT Assessment & Plan (06/24/2018 12:42 PM WINDOWS PHONE DEVELOPER): S/p CABG x 4 And MV repair. Postop care to include: - ASA, statin - BB - failed swallow, SBFT placed, enteral feeds at goal. FEES pending today. - Colace/Senna dc'd 2/2 diarrhea - SCDs and SQ heparin for DVT prophylaxis - Pt to maximize function - place picc (pt has pulled out multiple peripheral IV's) Assessment & Plan (06/23/2018 2:10 PM WINDOWS PHONE DEVELOPER): S/p CABG x 4 And MV repair. [...] OOBTC Assessment & Plan (06/22/2018 6:37 PM WINDOWS PHONE DEVELOPER): S/p CABG x 4 And MV repair. [...] treat Assessment & Plan (06/17/2018 5:17 PM WINDOWS PHONE DEVELOPER): S/p CABG x 4 And MV repair. [...] treat Assessment & Plan (06/16/2018 8:01 PM WINDOWS PHONE DEVELOPER): S/p CABG x 4 And MV repair. Postop care to include: - ASA - Statin - Eventual BB when off inotrope - failed swallow, SBFT placed, enteral feeds started. - Colace/Senna for bowel regimen - Hold home flomax until able to take PO - SCDs and SQ heparin for DVT prophylaxis - Pt to evaluate and treat Assessment & Plan (06/15/2018 3:02 PM WINDOWS PHONE DEVELOPER): S/p CABG x 4 And MV repair. Postop care to include: - ASA - Statin - Eventual BB when off inotrope - failed swallow, SBFT placed, enteral feeds started. - Colace/Senna for bowel regimen - Hold home flomax until able to take PO - SCDs and SQ heparin for DVT prophylaxis - Pt to evaluate and treat Assessment & Plan (06/14/2018 3:52 PM WINDOWS PHONE DEVELOPER): S/p CABG x 4 And MV repair. [...] treat Assessment & Plan (06/13/2018 4:08 PM WINDOWS PHONE DEVELOPER): S/p CABG x 4 And MV repair. Postop care to include: - ASA - Statin - Eventual BB when off inotrope - Bedside swallow eval then advance diet as tolerated if pt passes - Colace/Senna for bowel regimen - Resume home Flomax - SCDs and SQ heparin for DVT prophylaxis - Pt to evaluate and treat Assessment & Plan (06/12/2018 4:48 PM WINDOWS PHONE DEVELOPER): S/p CABG x 4 And MV repair postop care to include: Stress ulcer prophylaxis: PPI while intubated, transition to oral and continue if on home ppi ppi Nutrition plan: NPO for now: ADAT after extubation Bowel regimen: colace, senna DVT prophylaxis: SCDs, add SQH POD1 if no bleeding issues Physical therapy/Activity: OOBTC and ambulate with PT POD1 Assessment & Plan (07/11/2018 1:38 PM WINDOWS PHONE DEVELOPER): Post op from 4 v CABG and [...] sick. Assessment & Plan (06/07/2018 12:43 PM WINDOWS PHONE DEVELOPER): Smoking cessation education Assessment & Plan (06/04/2018 3:12 AM WINDOWS PHONE DEVELOPER): Patient states he smokes 2 packs a day and has done so since age 10. Permanent atrial fibrillation 06/04/2018 Assessment & Plan (06/26/2021 8:14 AM WINDOWS PHONE DEVELOPER): H/O A-fib -enoxaparin 40 mg q.d. -carvedilol 25 mg b.i.d. Assessment & Plan (06/25/2021 11:26 AM WINDOWS PHONE DEVELOPER): H/O A-fib -enoxaparin 40 mg q.d. -carvedilol 25 mg b.i.d. Assessment & Plan (06/24/2021 1:44 PM WINDOWS PHONE DEVELOPER): H/O A-fib -enoxaparin 40 mg q.d. -carvedilol 25 mg b.i.d. Assessment & Plan (06/23/2021 1:33 PM WINDOWS PHONE DEVELOPER): H/O A-fib -enoxaparin 40 mg q.d. -carvedilol 25 mg b.i.d. Assessment & Plan (06/22/2021 12:59 AM WINDOWS PHONE DEVELOPER): Patient not on any anticoagulation. Continue beta-maximino [...] are. Assessment & Plan (06/27/2018 3:20 PM WINDOWS PHONE DEVELOPER): Hx of paroxysmal afib. Rate controlled on [...] daily. Assessment & Plan (06/26/2018 3:08 PM WINDOWS PHONE DEVELOPER): Hx of paroxysmal afib. Rate controlled on [...] daily. Assessment & Plan (06/25/2018 5:09 PM WINDOWS PHONE DEVELOPER): Hx of paroxysmal afib. On home metop [...] daily Assessment & Plan (06/25/2018 5:17 AM WINDOWS PHONE DEVELOPER): Hx of paroxysmal afib. On home metop [...] repletion Assessment & Plan (06/24/2018 12:08 PM WINDOWS PHONE DEVELOPER): Hx of paroxysmal afib. On home metop [...] NSR Assessment & Plan (06/23/2018 8:59 PM WINDOWS PHONE DEVELOPER): Hx of paroxysmal afib. On home metop 50mg BID and ASA 81mg Daily. Currently, NSR 77 bpm. - Amio decreased to 400mg PT Q 8hours - Keep K > 4.2 and Mg > 2 - Metop 6.25 mg BID - heparin gtt per nomagram for systemic anticoagulation. - Patient is a high fall risk; therefore, will discuss plans for detention systemic anticoagulation with surgical team. Assessment & Plan (06/23/2018 1:28 PM WINDOWS PHONE DEVELOPER): Hx of paroxysmal afib. On home metop [...] fall risk; therefore, will discuss plans for intermediate teacher systemic anticoagulation with surgical team. 1200: Text cardiac surgery resident regarding plans for systemic intermediate teacher anticoagulation. Awaiting recommendations. Assessment & Plan (06/22/2018 5:42 PM WINDOWS PHONE DEVELOPER): Hx of paroxysmal afib. On home metop 50mg BID and ASA 81mg Daily. Currently, NSR 67 bpm. - Amio PT 400mg Q 8hours - Keep K > 4.2 and Mg > 2 - Consider restarting home metop - heparin gtt per nomagram for systemic anticoagulation 1600: potassium 3.6. Repletion with 40mEq PT. Assessment & Plan (06/17/2018 5:30 PM WINDOWS PHONE DEVELOPER): Hx of paroxysmal afib at baseline on no anticoagulation. Afib RVR In 120s-130s - transition amiodarone gtt to PT 400mg Q 8hours - Keep K > 4.2 and Mg > 2 - Eventual beta maximino when off milrinone - heparin gtt per nomagram for systemic anticoagulation Assessment & Plan (06/16/2018 8:14 PM WINDOWS PHONE DEVELOPER): Hx of paroxysmal afib at baseline on no anticoagulation. Afib RVR In 120s-130s - Keep amio drip at 1 - Keep K > 4.2 and Mg > 2 - Epi to off - Eventual beta maximino when off milrinone - heparin gtt per nomagram for systemic anticoagulation Assessment & Plan (06/15/2018 3:19 PM WINDOWS PHONE DEVELOPER): Hx of paroxysmal afib at baseline on no anticoagulation. Afib RVR In 120s-130s - Amio bolus 150 - Keep amio drip at 1 - Keep K > 4.2 and Mg > 2 - Epi wean Q 8hours - Eventual beta maximino when off inotrope - will discuss timing of systemic anticoagulation with CT surgery Assessment & Plan (06/14/2018 3:51 PM WINDOWS PHONE DEVELOPER): Hx of paroxysmal afib at baseline on [...] tomorrow Assessment & Plan (07/11/2018 1:37 PM WINDOWS PHONE DEVELOPER): Now in NSR Continue Beta-maximino EKG No planned anticoagulation-high fall risk Ongoing telemetry 07/[address] 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 Unable to currently walk. -PT/OT consulted Assessment & Plan (06/22/2021 1:00 AM WINDOWS PHONE DEVELOPER): Patient unable to provide any history Assessment & Plan (09/15/2018 6:32 AM CDT): Patient has residual cognitive deficits. Continue statin and aspirin. Assessment & Plan (06/04/2018 3:18 AM WINDOWS PHONE DEVELOPER): Patient denies this. Per EMR patient had a right cerebellar infarct in 2012. Patient will be started on aspirin and statin. Type 2 diabetes mellitus wit h hyperglycemia, without long-term current use of insulin 07/01/2012 Overview (08/23/2018): With cerebrovascular disease right hemisphere and cerebellar stroke Assessment & Plan (06/26/2021 8:20 AM WINDOWS PHONE DEVELOPER): Patient has a history of diabetes per [...] >200 Assessment & Plan (06/25/2021 12:31 PM WINDOWS PHONE DEVELOPER): Patient has a history of diabetes per [...] >200 Assessment & Plan (06/24/2021 1:49 PM WINDOWS PHONE DEVELOPER): Patient has a history of diabetes per review of EMR however does not appear to be on any medications. He was on insulin in the past seems. Patient presented with a blood sugar of 306. Will monitor on sliding scale. Will likely need adjustment in insulin. -A1c 8.2 -lanus 10 Qam and sliding scale lispro Assessment & Plan (06/23/2021 3:17 PM WINDOWS PHONE DEVELOPER): Patient has a history of diabetes per review of EMR however does not appear to be on any medications. He was on insulin in the past seems. Patient presented with a blood sugar of 306. Will monitor on sliding scale. Will likely need adjustment in insulin. -A1c 8.2 -lanus 10 Qam and sliding scale lispro Assessment & Plan (06/22/2021 12:59 AM WINDOWS PHONE DEVELOPER): Patient has a history of diabetes per [...] is. Assessment & Plan (07/14/2018 1:12 PM WINDOWS PHONE DEVELOPER): Over the previous 24 hours, blood glucose [...] today, please call Desiree Torrez NP at [phone]. If after hours, please contact the Diabetes Fellow at [phone]. Assessment & Plan (07/13/2018 1:07 PM WINDOWS PHONE DEVELOPER): Over the previous 24 hours, blood glucose [...] today, please call Desiree Torrez NP at [phone]. If after hours, please contact the Diabetes Fellow at [phone]. Assessment & Plan (07/10/2018 1:57 PM WINDOWS PHONE DEVELOPER): Over the previous 24 hours, blood glucose [...] today, please call Desiree Torrez NP at [phone]. If after hours, please contact the Diabetes Fellow at [phone]. Assessment & Plan (07/09/2018 3:57 PM WINDOWS PHONE DEVELOPER): Over the previous 24 hours, blood glucose [...] today, please call Desiree Torrez NP at [phone]. If after hours, please contact the Diabetes Fellow at [phone]. Assessment & Plan (07/08/2018 12:20 PM WINDOWS PHONE DEVELOPER): Over the previous 24 hours, blood glucose [...] today, please call Denita Garcia NP at [phone]. If after hours, please contact the Diabetes Fellow at [phone]. Assessment & Plan (07/07/2018 12:01 PM WINDOWS PHONE DEVELOPER): Over the previous 24 hours, blood glucose [...] today, please call Desiree Torrez NP at [phone]. If after hours, please contact the Diabetes Fellow at [phone]. Assessment & Plan (07/06/2018 11:30 AM WINDOWS PHONE DEVELOPER): Pt is on Glucerna 50cc/hr for 24 hour per day Oral intake continues to be poor. Recommendation: Continue current treatment 1. Mid dose lispro correction q4h 2. NPH insulin 9 units q8h Please notify DM team if Tube feeding plan changes Please call JAVIER / Osmin Lizarraga M.D. At [phone] for any questions. If after 5 PM or weekends, please contact the Diabetes Fellow at [phone], option #1 Assessment & Plan (07/03/2018 9:48 AM WINDOWS PHONE DEVELOPER): The patient was converted from nocturnal to 24-hr tube feeds yesterday to improve nutrition. PO intake is small but he is having some juices. He is on 1800 denys/day of Glucerna 1.5 at 50 ml/hr. Glucoses 161-184 with TDD of 23 NPH and 7 lispro. Recommendation: Continue current treatment 1. Mid dose lispro correction q4h 2. NPH insulin 9 units q8h 3. Orders entered For diabetes-related questions today only please call [phone]. For after- hours help please contact the diabetes fellow at [phone]. Assessment & Plan (07/02/2018 5:12 PM WINDOWS PHONE DEVELOPER): Over the past 24 hr, his glucose [...] For diabetes-related questions today only please call [phone]. For after- hours help please contact the diabetes fellow at [phone]. Assessment & Plan (07/01/2018 5:48 PM WINDOWS PHONE DEVELOPER): Over the past 24 hr, his glucose [...] today, please call Denita Garcia NP at [phone]. If after hours, please contact the Diabetes Fellow at [phone]. Assessment & Plan (07/11/2018 1:49 PM WINDOWS PHONE DEVELOPER): Continuous tube feedings w/ water flushes Continue scheduled NPH q 8 hrs Continue blood glucose checks. Continue SSI Modified barium swallow (MBS) 06/30 showed aspiration Calorie count, diet during the day Endocrine consulted- will follow note Assessment & Plan (06/27/2018 3:32 PM WINDOWS PHONE DEVELOPER): Hx of DM. A1c 6.0. Not on home meds. Currently, TF at goal and BG 150 to 170s. - Continue HD SSI - scheduled NPH to 11 units q8h Assessment & Plan (06/27/2018 1:22 AM WINDOWS PHONE DEVELOPER): Hx of DM. A1c 6.0. Not on home meds. Currently, TF at goal and BG 150 to 220s. - Continue HD SSI - Increase scheduled NPH to 11 units q8h Assessment & Plan (06/26/2018 2:58 PM WINDOWS PHONE DEVELOPER): Hx of DM. A1c 6.0. Not on home meds. Currently, TF at goal and BG 150 to 220s. - Continue high dose slide - Increase scheduled NPH to 10 units q8h Assessment & Plan (06/25/2018 12:27 PM WINDOWS PHONE DEVELOPER): Hx of DM. Not on home meds. A1c 6.0. Currently, TF at goal and BG > 200 at least 2/6 checks. - Continue high dose slide - Increase scheduled NPH to 8 units q8h 1230: Remains hyperglycemic in the 200s, will increase NPH to 10u Q8h Assessment & Plan (06/24/2018 12:28 PM WINDOWS PHONE DEVELOPER): Hx of DM. Not on home meds. A1c 6.0. Currently, TF at goal and BG > 200 at least 2/6 checks. - Continue high dose slide - increase scheduled NPH to 6 units q8h Assessment & Plan (06/23/2018 2:13 PM WINDOWS PHONE DEVELOPER): Hx of DM. Not on home meds. A1c 6.0. Currently, TF at goal and blood glucose 134- 214 on high dose SSI Q4H and scheduled NPH. - Continue high dose slide - scheduled NPH 5 units q8h Assessment & Plan (06/22/2018 6:05 PM WINDOWS PHONE DEVELOPER): Hx of DM. Not on home meds. Currently, TF at goal and blood glucose 175- 216 on high dose SSI Q4H and scheduled NPH. - Continue high dose slide - scheduled NPH 5 units q8h Assessment & Plan (06/17/2018 5:33 PM WINDOWS PHONE DEVELOPER): Hx of DM on no home meds. On high dose SSI Q4H. - Continue high dose slide - blood glucose has been labile, will begin NPH once blood glucose more stable Assessment & Plan (06/16/2018 8:17 PM WINDOWS PHONE DEVELOPER): Hx of DM on no home meds. On high dose SSI Q4H. - Continue high dose slide - May need basal insulin with initiation of tube feeds Assessment & Plan (06/15/2018 3:25 PM WINDOWS PHONE DEVELOPER): Hx of DM on no home meds. On high dose SSI Q4H. - Continue high dose slide - May need basal insulin with initiation of tube feeds Assessment & Plan (06/14/2018 4:02 PM WINDOWS PHONE DEVELOPER): Hx of DM on no home meds. On high dose SSI Q4H. - Continue high dose slide - May need basal insulin with initiation of tube feeds Alcohol use disorder, moderate, dependence 05/31 Assessment & Plan (08/22/2018 6:25 AM CDT): History of. Patient states he has not had alcohol since he was discharged from [facility]. Patient was discharged on 07/14/2018. Continue thiamine and multivitamin. Assessment & Plan (06/04/2018 3:29 AM WINDOWS PHONE DEVELOPER): Patient is a binge drinker he drinks [...] hypertension Assessment & Plan (06/26/2021 8:18 AM WINDOWS PHONE DEVELOPER): -hydralazine 50 mg t.i.d. -furosemide 40 mg q.d. Assessment & Plan (06/25/2021 11:29 AM WINDOWS PHONE DEVELOPER): -hydralazine 50 mg t.i.d. -furosemide 40 mg q.d. -isosorbide mononitrate 60 mg q.d. Assessment & Plan (06/24/2021 1:48 PM WINDOWS PHONE DEVELOPER): -hydralazine 50 mg t.i.d. -furosemide 40 mg q.d. -isosorbide mononitrate 60 mg q.d. Assessment & Plan (06/23/2021 3:14 PM WINDOWS PHONE DEVELOPER): Home medications resumed with hold parameters. Will hold diuretics until we can repeat BMP in the morning. -furosemide 40 mg q.d. Assessment & Plan (06/22/2021 1:00 AM WINDOWS PHONE DEVELOPER): Home medications resumed with hold parameters. Will [...] 07/02/2018 Assessment & Plan (07/06/2018 11:31 AM WINDOWS PHONE DEVELOPER): Complicated DM management and increases risk of hypoglycemia. Creat is at 1.21 (07/06) Assessment & Plan (07/12/2018 12:37 PM WINDOWS PHONE DEVELOPER): Creat stable 1.00 Continue to hold diuresis Avoid nephrotoxins Will monitor High risk medication use 07/01/2018 Assessment & Plan (07/14/2018 12:58 PM WINDOWS PHONE DEVELOPER): The use of intensive insulin therapy in the setting of variable po intake, tube feeds, altered mental status, increases the risk of glycemic variability. Will closely monitor blood glucose to prevent hypo or hyperglycemia. Assessment & Plan (07/13/2018 12:53 PM WINDOWS PHONE DEVELOPER): The use of intensive insulin therapy in the setting of variable po intake, tube feeds, altered mental status, increases the risk of glycemic variability. Will closely monitor blood glucose to prevent hypo or hyperglycemia. Assessment & Plan (07/10/2018 1:52 PM WINDOWS PHONE DEVELOPER): The use of intensive insulin therapy in the setting of variable po intake, tube feeds, altered mental status, increases the risk of glycemic variability. Will closely monitor blood glucose to prevent hypo or hyperglycemia. Assessment & Plan (07/09/2018 3:51 PM WINDOWS PHONE DEVELOPER): The use of intensive insulin therapy in the setting of variable po intake, tube feeds, altered mental status, increases the risk of glycemic variability. Will closely monitor blood glucose to prevent hypo or hyperglycemia. Assessment & Plan (07/08/2018 12:20 PM WINDOWS PHONE DEVELOPER): The use of intensive insulin therapy in the setting of variable po intake, tube feeds, altered mental status, increases the risk of glycemic variability. Will closely monitor blood glucose to prevent hypo or hyperglycemia. Assessment & Plan (07/07/2018 11:58 AM WINDOWS PHONE DEVELOPER): The use of intensive insulin therapy in the setting of variable po intake, tube feeds, altered mental status, increases the risk of glycemic variability. Will closely monitor blood glucose to prevent hypo or hyperglycemia. Assessment & Plan (07/06/2018 11:31 AM WINDOWS PHONE DEVELOPER): The use of intensive insulin therapy in the setting of variable po intake, tube feeds, altered mental status, increases the risk of glycemic variability. Will closely monitor blood glucose to prevent hypo or hyperglycemia. Assessment & Plan (07/01/2018 3:03 PM WINDOWS PHONE DEVELOPER): The use of intensive insulin therapy in the setting of variable po intake, tube feeds, altered mental status, increases the risk of glycemic variability. Will closely monitor blood glucose to prevent hypo or hyperglycemia. Leukocytosis 06/22/2018 06/24/2018 Overview (06/22/2018): Preop Proteus UTI. Periop vanc/ancef. Ceftriaxone 7 day course completed. Assessment & Plan (06/23/2018 2:11 PM WINDOWS PHONE DEVELOPER): WBC 11.2 (11.3). Pt remains afebrile and is not requiring pressor support. 2/7 UA negative and 2/7 BC revealed NGTD. C-diff neg on 06/22. - Discontinued empiric coverage for PNA (Cefepime 1000mg q12h and Vanc 1250 mg q24h) - F/U on hardin cultures Assessment & Plan (06/23/2018 4:43 AM WINDOWS PHONE DEVELOPER): WBC 11.3. Pt remains afebrile and is [...] leukocytosis) Assessment & Plan (06/22/2018 6:49 PM WINDOWS PHONE DEVELOPER): WBC 11.3. Pt remains afebrile and is [...] 06/28/2018 Assessment & Plan (06/27/2018 3:45 PM WINDOWS PHONE DEVELOPER): Likely 2/2 aggressive diuresis. Sodium stable at 148. Metolazone 10mg BID today. FWF at 50ml continuous via enteral route FB (+) 900ml - Continue FWF to 50ml/hr. - FBG even Assessment & Plan (06/26/2018 11:44 PM WINDOWS PHONE DEVELOPER): Likely 2/2 aggressive diuresis. Sodium down to 147 (148). Metolazone 10mg BID today. - Continue FWF to 50ml/hr pending AM BMP - FBG even Assessment & Plan (06/26/2018 3:01 PM WINDOWS PHONE DEVELOPER): Sodium rising overnight to 148 (150). Likely 2/2 aggressive diuresis. Free water deficit to correct to 145 is 1.2 L. - Continue FWF to 50ml/hr - Diuresis with Metolazone 10mg BID - FBG even - Repeat BMP at 1400 1400: BMP revealed Assessment & Plan (06/25/2018 1:26 PM WINDOWS PHONE DEVELOPER): Sodium rising overnight to 151 (147). Likely 2/2 aggressive diuresis. Free water deficit to correct to 145 is 2.4L. - Increase FWF to 50ml/hr continuous - D/c lasix - Metolazone 10mg BID - FBG even - Repeat BMP at noon Assessment & Plan (06/25/2018 5:25 AM WINDOWS PHONE DEVELOPER): Sodium rising overnight to 151 (147). Likely relating to diuresis. - increase FWF to 100ml Q4 -Consider Metolazone with further diruesis Assessment & Plan (06/24/2018 12:30 PM WINDOWS PHONE DEVELOPER): Na up to 147 from 144. May be in part related to precedex which has now been discontinued. - increase FWF to 60 ml Q4. Assessment & Plan (06/15/2018 3:27 PM WINDOWS PHONE DEVELOPER): Na with some downward trend to 145, - stop D5W - FWF 60ml Q4H when SBFT in place Assessment & Plan (06/14/2018 4:04 PM WINDOWS PHONE DEVELOPER): Na up to 148 with D5W at 25ml/hr initiated yesterday. Now improved with Na 145. - Decrease D5W to 10ml/hr as carrier - FWF 60ml Q4H when SBFT in place Acute respiratory failure with hypoxemia 06/13/2018 06/24/2018 Assessment & Plan (06/23/2018 5:56 PM WINDOWS PHONE DEVELOPER): Extubated to NC on 06/22. AM CXR [...] Liter. Assessment & Plan (06/23/2018 4:05 AM WINDOWS PHONE DEVELOPER): Extubated to IN O2 this pm. Net (+) 1.3 L - PT/OOBTC/AMB - Wean FiO2 for sats > 92% - scheduled albuterol and atrovent - IS/acapella as pt able to participate, NT suction as needed - Consider diuresis for increased O2 Requirements Assessment & Plan (06/22/2018 6:49 PM WINDOWS PHONE DEVELOPER): Intubated on 06/21 for hypoxemia and CXR [...] Requirements Assessment & Plan (06/17/2018 5:29 PM WINDOWS PHONE DEVELOPER): 2L NC. Difficulty participating with pulm hygiene due to delirium. CXR showing L layering effusion, LLL collapse and bibasilar atelectasis slightly improved today. - Lasix gtt at 5 mg and metolazone for diuresis - OOBTC/IS/acapella as pt able to participate - NT suction as needed - Wean O2 for sats > 92% Assessment & Plan (06/16/2018 8:13 PM WINDOWS PHONE DEVELOPER): 2L NC. Difficulty participating with pulm hygiene due to delirium. CXR showing L layering effusion, LLL collapse and bibasilar atelectasis. - Lasix and metolazone for diuresis - OOBTC/IS/acapella as pt able to participate - NT suction as needed - Wean O2 for sats > 92% -will need to consider PEP therapy to assist with pulm hygiene Assessment & Plan (06/15/2018 3:18 PM WINDOWS PHONE DEVELOPER): 2L NC. Difficulty participating with pulm hygiene due to delirium. CXR showing L layering effusion and bibasilar atelectasis. - 80 lasix and 10 metolazone BID for FBG negative 1L - OOBTC/IS/acapella as pt able to participate - NT suction as needed - Wean O2 for sats > 92% Assessment & Plan (06/14/2018 3:41 PM WINDOWS PHONE DEVELOPER): Extubated to CPAP POD 0. Now on [...] 92% Assessment & Plan (06/13/2018 4:00 PM WINDOWS PHONE DEVELOPER): Extubated to CPAP 10 last night. 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 Held [...] QTc Assessment & Plan (06/25/2018 5:08 PM WINDOWS PHONE DEVELOPER): Baseline slurred speech 2/2 CVC. Seroquel dose [...] QTc Assessment & Plan (06/24/2018 12:19 PM WINDOWS PHONE DEVELOPER): Baseline slurred speech 2/2 CVC. Precedex gtt [...] QTc Assessment & Plan (06/23/2018 9:02 PM WINDOWS PHONE DEVELOPER): Baseline decreased mentation with slurred speech 2/2 [...] sleep Assessment & Plan (06/23/2018 2:05 PM WINDOWS PHONE DEVELOPER): Baseline decreased mentation with slurred speech 2/2 [...] sleep Assessment & Plan (06/23/2018 4:06 AM WINDOWS PHONE DEVELOPER): Baseline decreased mentation with slurred speech 2/2 [...] sleep Assessment & Plan (06/22/2018 6:57 PM WINDOWS PHONE DEVELOPER): Baseline decreased mentation with slurred speech 2/2 [...] gtt Assessment & Plan (06/17/2018 5:32 PM WINDOWS PHONE DEVELOPER): Pt delirious following extubation. 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 70% L ICA stenosis. + history for ETOH abuse - avoid ativan -Haldol PRN -seroquel increased to 75 mg [id number] - SBFT with enteral feeds, failed swallow - Encourage daytime activity, frequent reorientation, minimize interruptions in sleep - Likely past the window for ETOH withdrawal - Consider head CT if mental status does not improve given stroke history - Thiamine and folic acid Assessment & Plan (06/16/2018 8:17 PM WINDOWS PHONE DEVELOPER): Pt delirious following extubation. Old bilateral cerebellar [...] acid Assessment & Plan (06/15/2018 3:25 PM WINDOWS PHONE DEVELOPER): Pt delirious following extubation. Old bilateral cerebellar [...] acid Assessment & Plan (06/14/2018 3:52 PM WINDOWS PHONE DEVELOPER): Pt delirious following extubation. Old bilateral cerebellar [...] acid Assessment & Plan (06/13/2018 4:22 PM WINDOWS PHONE DEVELOPER): Pt delirious following extubation last night. Per [...] 06/25/2018 Assessment & Plan (06/24/2018 12:16 PM WINDOWS PHONE DEVELOPER): Patient denies pain on exam. - avoid narcotics in light of delirium - Tylenol PRN Assessment & Plan (06/23/2018 2:07 PM WINDOWS PHONE DEVELOPER): Patient denies pain on exam. - Discontinue Dex gtt - Dc'd oxy 2/2 hypersomnia delirium - Tylenol PRN pain 1300: Patient remain calm s/p discontinuation of precedex gtt. Continues to FC, HERNDON, and A&Ox1. Assessment & Plan (06/22/2018 6:28 PM WINDOWS PHONE DEVELOPER): Currently, drowsy on precedex gtt and not endorsing pain. - Discontinue Dex gtt with plan to extubate - Discontinue seroquel 2/2 drowsiness on exam - Tylenol and oxycodone PRN pain 1827: restarted Precedex gtt 2/2 agitation. Assessment & Plan (06/17/2018 5:29 PM WINDOWS PHONE DEVELOPER): Pt continues to be delirious. Moans but denies discomfort. Receiving Dilaudid PRN. Seroquel given with improvement. Ativan given overnight, pt very lethargic this morning, difficult to arouse -avoid ativan -scheduled seroquel 75 mg Q 8hours -avoid opiates, benzos - Tylenol and oxycodone PRN Assessment & Plan (06/16/2018 8:12 PM WINDOWS PHONE DEVELOPER): Pt continues to be delirious. Moans but denies discomfort. Receiving Dilaudid PRN. Seroquel given with improvement. Ativan given overnight, pt very lethargic this morning, difficult to arouse -avoid ativan -scheduled seroquel BID, will switch to TID once pt is more awake -avoid opiates, benzos - Tylenol and oxycodone PRN Assessment & Plan (06/15/2018 3:15 PM WINDOWS PHONE DEVELOPER): Pt continues to be delirious. Moans but denies discomfort. Receiving Dilaudid PRN. Seroquel given with improvement -scheduled seroquel BID -avoid opiates, benzos - Tylenol and oxycodone PRN Assessment & Plan (06/14/2018 3:40 PM WINDOWS PHONE DEVELOPER): Pt continues to be delirious. Moans in pain occasionally. Receiving Dilaudid PRN. - Continue dilaudid PRN 0.25 Q1H until enteral access available then will start scheduled Tylenol and PRN oxy Assessment & Plan (06/13/2018 4:06 PM WINDOWS PHONE DEVELOPER): Pt delirious. Moaning in pain. - Dilaudid PRN 0.25 Q1H - Schedule Tylenol and oxy PRN if pt passes bedside swallow Assessment & Plan (06/12/2018 3:06 PM WINDOWS PHONE DEVELOPER): Expected post median thoracotomy surgery. -Fentanyl IV prn while intubated - Scheduled Tylenol - prn oxy - lido patches Diarrhea 06/11/2018 06/13/2018 Assessment & Plan (06/11/2018 1:51 PM WINDOWS PHONE DEVELOPER): Reported frequent diarrhea C diff ordered and pending Dr Silva aware. Scabies 06/05/2018 06/11/2018 Assessment & Plan (06/10/2018 12:32 PM WINDOWS PHONE DEVELOPER): Dermatology consult-appreciate recs Add Sarna lotion for pruritis- pt does not have Scabies Assessment & Plan (06/07/2018 12:47 PM WINDOWS PHONE DEVELOPER): Dermatology consult-to be called on Friday Scabies vs bed bugs ([facility] treated with permethrin on 06/05) Chest pain 06/04/2018 08/23/2018 Assessment & Plan (06/04/2018 3:20 AM WINDOWS PHONE DEVELOPER): ACS. Troponin trending up. 0.14 to 0.25. Will await 3rd troponin. EKG showed sinus tachycardia with occasional PVCs, nonspecific ST changes in leads 1 and [address]. No obvious ST changes. Patient is currently on a heparin drip. Cardiology has been consulted will await their evaluation. NPO until Cardiology sees patient. Hyperglycemia 06/04/2018 08/23/2018 Assessment & Plan (06/04/2018 3:15 AM WINDOWS PHONE DEVELOPER): HbA1c is 6. Patient is prediabetic. Will place him on a low-dose sliding scale. Pulmonary edema 06/04/2018 06/25/2018 Assessment & Plan (06/25/2018 5:22 AM WINDOWS PHONE DEVELOPER): Mild pulmonary edema. Post-respiratory failure requiring prior reintubation. Coarse breath sounds bilaterally. Lasix 40mg TID today -Lasix TID -FBG - 500ml to -1L -Aldactone Additional Care: Overnight worsening hypernatremia. Held off on further diuresis. May benefit from Metolazone. Assessment & Plan (06/08/2018 10:47 AM WINDOWS PHONE DEVELOPER): Continue IV lasix FBG - 1 L Assessment & Plan (06/07/2018 12:48 PM WINDOWS PHONE DEVELOPER): Continue IV lasix Assessment & Plan (06/04/2018 3:12 AM WINDOWS PHONE DEVELOPER): No prior history of CHF. EF was 55-60% in 2012. Will order an echo. Patient received Lasix in the ED. NSTEMI (non-ST elevated myoc ardial infarction) 06/04/2018 08/23/2018 Stable angina pectoris 06/03/201806/23 Overview (06/05/2018): Added automatically from request for surgery [id number] Assessment & Plan (06/11/2018 1:48 PM WINDOWS PHONE DEVELOPER): Pre-OP CABG-continue aspirin, statin, beta maximino Continue heparin gtt Remains pain free TTE showed EF < 30%; Viability : normal viability of the whole left ventricle Vein mapping completed and in EPIC; Carotids > 70%- vascular consulted and ok to proceed with surgery- will address carotids as OP after recovery Assessment & Plan (06/07/2018 12:44 PM WINDOWS PHONE DEVELOPER): Pre-OP CABG-aspirin, statin, beta maximino Continue heparin gtt Check carotids, vein mapping, TTE, viability study Stroke 08/23/2018 Immunizations Immunization Administration Dates Next Due [facility] SARS-CoV-2 Monovalent Vaccination (12+ Yrs) PURPLE 06/22/2021(Deferred: Patient decision) Surgical History Surgery Date Site/Laterality Comments CENTRAL LINE PLACEMENT > 5 YEARS 07/27/2012 N/A IR G TUBE PLACEMENT PERCUTANEOUS 07/10/2018 N/A CARDIAC SURGERY 06/12/2018 coronary artery bypass graft HERNIA REPAIR CORONARY ARTERY BYPASS GRAFT 05/12/2018 - 05/11/2019 TONSILLECTOMY Medical History Medical History Date Comments Atrial fibrillation (HCC) Coronary artery disease Hypertension Stroke (HCC) Hyperlipidemia CHF (congestive heart failure) (HCC) Syncope Diabetes mellitus (HCC) COPD (chronic obstructive pulmonary disease) (HC C) Carotid artery disease Ventricular tachycardia (HCC) Family History * Patient is adopted Medical History Relation Name Comments No Known Problems Father No Known Problems Mother Relation Name Status Comments Father Mother Social History Tobacco Use Types Packs/Day Years [...] materials from doctor or pharmacy Always 05/27/2024 [facility] Utilities Answer Date Recorded In the past 12 months has e [employer], gas, oil, or water [employer] threatened to shut off services in your [...] often do you attend chur ch or alevism services? 1 to 4 times per year [...] place to sleep or slept in a jail (including now)? No 06/30/2023 Housing Stability Vital Sign Answer Immanuel e Recorded In the last 12 months, was t here a time when you were not able to pay the mortgage or rent on time? No 12/01/2023 In the past 12 months, how m any times have you moved where you were living? 0 12/01/2023 At any time in the past 12 m [facility], were you homeless or living in a jail (including now)? No 12/01/2023 Personal Safety Answer Date Recorded Have you ever been in or are you currently in a harmful physical or emotional relationship or is someone making you feel afraid or unsafe? Denies 11/29/2023 Sex and Gender Information Value Date Recorded Sex Assigned at Not on file Legal Sex Male 2:47 AM WINDOWS PHONE DEVELOPER Gender Identity Not on file Sexual Orientation Not on file Obstetrics History Last Filed Vital Signs Vital Sign Reading Time Taken Comments Blood Pressure 118/62 05/27/2024 9:31 AM WINDOWS PHONE DEVELOPER Pulse 78 05/27/2024 9:31 AM WINDOWS PHONE DEVELOPER Temperature 36.6 C (97.9 F) 05/27/2024 9:31 AM WINDOWS PHONE DEVELOPER Respiratory Rate 18 05/27/2024 9:31 AM WINDOWS PHONE DEVELOPER Oxygen Saturation 96% 05/27/2024 9:31 AM WINDOWS PHONE DEVELOPER Inhaled Oxygen Concentration - - Weight 77.2 kg (170 lb 3.2 oz) 12/02/2023 6:06 A M CDT Height 170.2 cm (5' 7) 11/30/2023 3:45 PM CDT Body Mass Index 26.66 11/30/2023 3:45 PM CDT Plan of Treatment Health Maintenance Due Date Last Done Comments Albumin Creatinine Ratio, Urine 1951 Colon Cancer Screening-Colonoscopy 1950 Hepatitis C Screening 1950 Dilated Eye Exam 1951 Foot Exam 1951 DTaP/Tdap/Td Vaccine (1 - Tdap) 1962 Hepatitis B Screening 1969 Pneumococcal vaccine 65+ (1 of 2 - PCV) 1970 Lung Cancer Screening 2001 Zoster Vaccine (1 of 2) 2001 Well Visit 65+ 2016 Depression Screening 08/22/2019 08/21/2018 Lipid Panel 03/21/2022 03/21/2021, 05/13, 06/03/2018, Additional history exists Hemoglobin A1C 12/26/2023 06/27/2023, 06/12, 03/21/2021, Additional history exists Fall Risk Assessment 12/01/2024 12/02/2023 eGFR 12/01/2024 12/02/2023, 11/10, 11/30/2023, Additional history exists Influenza Vaccine (Season Ended) 2025 Prostate Cancer Screening-PSA Discontinued 03/21/2021 Abdominal Aortic Aneurysm (A AA) Screen Completed 06/25/2023, 04/11/2023, 04/09/2023, Additional history exists Medical Devices Implanted Type 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 N/A: Heart [employer] 03/04/2023 [id number] / [id number] / Procedures Procedure Name Priority Date/Time Associated Diagnosis Comments EGFR Routine 12/02/2023 6:58 AM CDT HEMOGLOBIN A1C Routine 06/27/2023 12:17 PM WINDOWS PHONE DEVELOPER CTA ABDOMINAL AORTA AND BILATERAL ILIOFEMORAL RUNOFF ED 06/25/2023 9:20 PM WINDOWS PHONE DEVELOPER LIPID PANEL Routine 03/21/2021 10:55 AM WINDOWS PHONE DEVELOPER PSA SCREEN Routine 03/21/2021 10:55 AM WINDOWS PHONE DEVELOPER from Last 3 Months or Most Recently [...] of Race in Diagnosing Kidney Disease, JASN 202). The CKD-EPI equation should not be used for patients with unstable renal function and has not been validated in children and those over 70. Current interpretive data was last reviewed 2021. Blood 12/02/2023 6:58 AM CDT 12/02/2023 7:23 AM CDT Elliot Cuenca MD LAB BLOOD ORDERABLES Fi nal Result Performing Organization Address City/[facility]/ZIP Co de Phone Number [facility] [address] [facility] Department [place] [address] * (ABNORMAL) Hemoglobin A1c (06/27/2023 12:17 PM WINDOWS PHONE DEVELOPER) Hgb A1C 6.3(H) 4.0 - 5.6 % [facility] Estimated Average Glucose 134 mg/dL [facility] Comment: The ADA recommends reporting an estimated Average Glucose (eAG) with all Hemoglobin A1c results using the equation derived from a study of 507 normal and diabetic adults. Minority populations were underrepresented and children were not included. (Diabetes Care 31:4406-0809, 2008). The eAG is not equivalent to a fasting glucose. Blood 06/27/2023 12:1 7 PM WINDOWS PHONE DEVELOPER 06/27/2023 12:33 PM WINDOWS PHONE DEVELOPER Trenton Lancaster MD LAB BLOOD ORDERABLES Final Result [facility] [address] [place] [address] * CTA Abdominal Aorta And Bilateral Iliofemoral Runoff (06/25/2023 9:20 PM WINDOWS PHONE DEVELOPER) Anatomical Region Laterality Modality Body Bilateral Computed Tomogra phy 06/25/2023 9:05 PM WINDOWS PHONE DEVELOPER Impressions 06/27/2023 8:39 AM WINDOWS PHONE DEVELOPER 1. Compared to 04/11/2023, no significant change in the approximate 4.2 x 4.4 cm infrarenal abdominal aortic aneurysm with internal peripheral mural thrombus. 2. 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 Collateral flow reconstitutes the patent right popliteal artery which exhibits a few mild to moderate stenoses. 3. 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 Collateral flow reconstitutes a faint small-caliber portion of the mid right PROGRAMMING EQUIPMENT OPERATOR. Segmental occlusion or severe focal stenosis involving [...] scattered severe stenoses of the proximal left PROGRAMMING EQUIPMENT OPERATOR with the remainder of this vessel being [...] Jayjay Pedraza M.D. Narrative 06/27/2023 8:39 AM WINDOWS PHONE DEVELOPER EXAMINATION: CT ANGIOGRAPHY OF THE ABDOMEN, PELVIS, [...] proximal and distal portions of the right PROGRAMMING EQUIPMENT OPERATOR. Collateral flow reconstitutes a faint small-caliber portion of the mid right PROGRAMMING EQUIPMENT OPERATOR. Segmental occlusion or severe focal stenosis involving [...] scattered severe stenoses of the proximal left PROGRAMMING EQUIPMENT OPERATOR with the remainder of this vessel being [...] proximal and distal portions of the right PROGRAMMING EQUIPMENT OPERATOR. Collateral flow reconstitutes a faint small-caliber portion of the mid right PROGRAMMING EQUIPMENT OPERATOR. Segmental occlusion or severe focal stenosis involving [...] scattered severe stenoses of the proximal left PROGRAMMING EQUIPMENT OPERATOR with the remainder of this vessel being [...] proximal and distal portions of the right PROGRAMMING EQUIPMENT OPERATOR. Collateral flow reconstitutes a faint small-caliber portion of the mid right PROGRAMMING EQUIPMENT OPERATOR. Segmental occlusion or severe focal stenosis involving [...] scattered severe stenoses of the proximal left PROGRAMMING EQUIPMENT OPERATOR with the remainder of this vessel being [...] Result * PSA screen (03/21/2021 10:55 AM WINDOWS PHONE DEVELOPER) PSA-Total 0.25 <=5.40 ng/mL [facility] ([place]) Comment: Interpretive Data AGE SEX REFERENCE INTERVAL 0 minutes-150 years Female None 0 minutes-49 years Male None 50-59 years Male 0-3.90 60-69 years Male 0-5.40 70-79 years Male 0-6.20 80-150 years Male 0-6.20 Current interpretive data last revised 2018. Testing performed by: [facility], [address] [place] [address], [place]., [address] Blood 03/21/2021 10:5 5 AM WINDOWS PHONE DEVELOPER 03/21/2021 4:08 PM WINDOWS PHONE DEVELOPER us Jim De La Cruz MD LAB BLOOD ORDERABLES Susan l Result [facility] [address] [facility] Department [place] [address] * (ABNORMAL) Lipid panel (03/21/2021 10:55 AM WINDOWS PHONE DEVELOPER) Cholesterol 210(H) 30 - 199 mg/dL [facility] [...] Pediatrics 2011;128:S213 2. NCEP Expert Panel. Circulation 2003;110:227 Current Interpretive Data was last revised on [...] 2017. Non-HDL Cholesterol 180 mg/dL [facility] ([place]) Comment: Interpretive Data Ages < or = [...] on 2017. Chol/HDL ratio 7 [facility] ([place]) Blood 03/21/2021 10:5 5 AM WINDOWS PHONE DEVELOPER 03/21/2021 11:48 AM WINDOWS PHONE DEVELOPER us Jim De La Cruz MD LAB BLOOD ORDERABLES Susan brunson Result [facility] ([place] [address] [facility] Department [place] [address] from Last 3 Months or Most Recently Relevant to Health Maintenance Insurance [facility] ADVANTAGE [facility] Address: [address] [address] [place] [address] R HMO REF [facility] Address: [address] [address] [place] [address] R HMO REF [facility] Address: [address] [address] [place] [id number] UHC MEDICARE ADVANTAGE [facility] Address: [facility] [address] [place] [address] Advance Directives For more information, please contact: [phone] Documents on File Type Date Recorded Patient Sales Service Executive Expl anation ADVANCE DIRECTIVE 07/04/2023 10:42 AM TEODORO R OF BUS PERSON-MEDICAL * Full Code (Latest Code Status on [...] 12:57 AM 06/26/2021 10:33 PM Care Teams Director Of Operations Relationship Specialty Start Date End Date Charlene Palomino NP [facility] [place] [address] PCP - General Nurse Practitioner 11/29/23 Kayla Cruz MD PhD Surgeon Vascular Surgery 08/23/18 Miah Merritt MD Surgeon Orthopedic Surgery 08/23/18 Mily Rush, PhD Psychologist Psychology 08/23/18 Naveen Ty MD Surgeon Vascular Surgery 08/23/18 Salvador Malone MD Referring Physician Cardiothoracic Surgery 08/23/18 Niles Reeves MD [address] [place] [address] [address], [place] [address] Surgeon General Surgery 04/10/23 [place] [id number] [facility] [address] [address] Consulting Physician Vascular Surgery 07/02/23
[2024-10-18 20:11] LABS: Add Urine Microscopic? YES; Appearance Urine Clear (Clear); Bacteria Urine 4+ /hpf; Bilirubin Urine Negative (Negative); Blood Urine Trace (Negative); Color Urine Yellow (Yellow); Glucose Urine UA Negative (Negative); Ketones Urine Negative (Negative); Leukocyte Esterase Ur 3+ LEU/UL (Negative); Nitrate Urine Positive (Negative); Non Pathogenic Casts 0-2; Protein Urine Negative (Negative); RBC Urine 0-2 /hpf (0-2); Squamous Epithelial Cell Urine None Seen /hpf (Few); Urobilinogen Urine 0.2 mg/dL (<2.0); WBC Urine >100 /hpf (0-3); pH Urine 5.5 (5.0-9.0)
[2024-10-18 20:22] LABS: Creatinine Urine 43.7 mg/dL
[2024-10-18 20:25] LABS: MALB Creatinine Ratio 24.5 mg/g (0-30); Microalbumin Urine Random 10.7 mg/L (0-16.7)
[2024-10-18 20:27] LABS: Alanine Aminotransferase 27 U/L (6-50); Albumin Level 4.7 g/dL (3.5-5.1); Alkaline Phosphatase 62 U/L (38-126); Anion Gap 10 mmol/L (4-12); Aspartate Amino Transferase 33 U/L (17-59); Blood Urea Nitrogen 28 mg/dL (9-20); Calcium 10.1 mg/dL (8.4-10.2); Carbon Dioxide 31 mmol/L (22-30); Chloride 100 mmol/L (98-107); Cholesterol 110 mg/dL (0-200); Estimated Glomerular Filt Rate 53; Glucose 138 mg/dL (65-110); HDL Direct 33 mg/dL; Potassium 4.3 mmol/L (3.4-5.0); Sodium 141 mmol/L (137-145); Total Protein 7.6 g/dL (6.3-8.2); Triglycerides 134 mg/dL (<150)
[2024-10-18 20:28] LABS: Hematocrit 43.8 % (42.0-52.0); Hemoglobin 13.7 g/dL (14.0-18.0); Mean Corpuscular HGB Conc 31.3 g/dl (32-36); Mean Corpuscular Hemoglobin 31.1 pg (26-34); Mean Corpuscular Volume 99.3 fl (80-100); Mean Platelet Volume 11.3 fl (7.4-10.4); Platelet Count Result 180 k/mm3 (150-375); Red Blood Count 4.41 M/mm3 (4.6-6.20); Red Cell Distribution Width 13.7 % (11.5-14.5); White Blood Count 7.8 K/mm3 (4.5-10.0)
[2024-10-18 20:37] LABS: LDL Cholesterol Direct 44 mg/dL
[2024-10-18 21:04] LABS: Hemoglobin A1C 6.2 % (<5.7)
== END 2024-10-18 11:00 | disposition home or self-care (01) ==
LOC: ANHBWCLAB 11:00
PROVIDERS: PCP Nurse Practitioner Adult Health; Visit Provider Nurse Practitioner Adult Health
DX: R39.9 Unspecified symptoms and signs involving the genitourinary system (principal); E11.9 Type 2 diabetes mellitus without complications; D64.9 Anemia, unspecified
CPT/HCPCS: 36415; 80053; 80061; 81001; 82043; 82565; 83036; 85027

== ENCOUNTER 2025-04-27 14:49 | Outpatient (CLI) | payer MEDICARE, SELFPAY ==
--- OUTSIDE RECORDS SUMMARY | 2025-04-27 17:38 | XMS_ITS | Clinical Summary ---
Author Organization [facility] Address [address] [place] [address] Care Team Providers Care Legal Adviser Name Role Phone Kayla Cruz MD PhD Unavailable [phone] Miah Merritt MD Unavailable [phone] Mily Rush PhD Unavailable [phone] Naveen Ty MD Unavailable [phone] Salvador Malone MD Unavailable [phone] Niles Reeves MD Unavailable [phone] Zachery Wood MD Unavailable [phone] Miscellaneous, Not In File Primary Care Provider Unavailable Allergies Active Allergy Reactions Criticality Noted Date Comments Sulfamethoxazole-Trimethoprim Rash Medium 2019 Lisinopril Angioedema High 02/05/2019 Medications acetaminophen (TYLENOL) 500 mg tabletIndications :Pain Take 1 tablet (500 mg total) by mouth every 4 (four) hours as needed for pain Active atorvastatin (LIPITOR) 80 mg tablet Take 1 tablet (80 mg total) by mouth daily 30 tablet 11 04/15/2023 Active furosemide (LASIX) 40 mg tablet Take 1 tablet (40 mg total) by mouth daily 04/15/2023 Active metFORMIN (GLUCOPHAGE) 500 mg tabletIndications :type 2 diabetes mellitus Take 1 tablet (500 mg total) by mouth 2 (two) times a day Take 1 tablet by mouth twice daily 04/15/2023 Active empagliflozin (JARDIANCE) 10 mg tabletIndications :Heart Failure Take 1 tablet (10 mg total) by mouth daily 30 tablet 07/03/2023 Active spironolactone (ALDACTONE) 25 mg tabletIndications :hypertension Take 1 tablet (25 mg total) by mouth daily 30 tablet 07/03/2023 Active apixaban (ELIQUIS) 5 mg tabletIndications :atrial fibrillation Take 1 tablet (5 mg total) by mouth 2 (two) times a day Active isosorbide mononitrate ER (IMDUR) 60 mg 24 hr tabletIndications :prevention of anginal pain in coronary artery disease Take 1 tablet (60 mg total) by mouth daily Active finasteride (PROSCAR) 5 mg tabletIndications :benign prostatic hyperplasia with lower urinary tract sx TAKE 1 TABLET(5 MG) BY MOUTH DAILY 30 tablet 11 01/09/2024 Active allopurinoL (ZYLOPRIM) 100 mg tabletIndications :prevention of acute gout attack Take 1 tablet (100 mg total) by mouth daily Active metoprolol tartrate (LOPRESSOR) 50 mg immediate release tabletIndications :hypertension Take 1 tablet (50 mg total) by mouth 2 (two) times a day Active Active Problems Problem Noted Date Diagnosed Date Sepsis, due to unspecified o rganism, unspecified whether acute organ dysfunction present 11/23/2024 KARLA (acute kidney injury) 04/09/2023 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 -Continue finasteride 25 mg every day Assessment & Plan (06/24/2021 1:48 PM BETTING AGENCY MANAGER): Bladder scan showed a little over 300 cc of urine. -Continue finasteride 25 mg every day Assessment & Plan (06/23/2021 2:27 PM BETTING AGENCY MANAGER): Bladder scan showed a little over 300 cc of urine. -Continue finasteride 25 mg every day Assessment & Plan (06/22/2021 1:01 AM BETTING AGENCY MANAGER): Bladder scan showed a little over 300 cc of urine. Continue Proscar Coronary artery disease invo lving [place] coronary artery of [place] heart without angina pectoris 05/10/2019 Assessment & Plan (06/23/2021 1:25 PM BETTING AGENCY MANAGER): Patient denies any chest pain or shortness of breath. -carvedilol 25 mg b.i.d. -isosorbide mononitrate 60 mg q.d. hold for SBP less than 115 Assessment & Plan (06/22/2021 1:00 AM BETTING AGENCY MANAGER): Patient denies any chest pain or shortness [...] have a more recently updated lipid profile. COPD with asthma 08/23/2018 Overview (08/23/2018): Images [...] , no MS, mild TV regurgitation, Mild GA. Diastolic function: indeterminate Parasternal Long Kipling Parasternal Short Kipling Apical Four Chamber Apical Two Chamber Confirmed [...] to confirm patient's home medications with family. Difficulty swallowing 07/10/2018 Assessment & Plan (06/26/2021 8:17 AM BETTING AGENCY MANAGER): Patient has a history of dysphagia. Per nurse he is having some difficulty swallowing pills. Prior history of CVA. -consult speech-recommended soft pureed diet after swallow eval Assessment & Plan (06/25/2021 11:29 AM BETTING AGENCY MANAGER): Patient has a history of dysphagia. Per nurse he is having some difficulty swallowing pills. Prior history of CVA. -consult speech-recommended soft pureed diet after swallow eval Assessment & Plan (06/24/2021 1:46 PM BETTING AGENCY MANAGER): Patient has a history of dysphagia. Per nurse he is having some difficulty swallowing pills. Prior history of CVA. -will consult speech for swallow eval Assessment & Plan (07/11/2018 1:50 PM BETTING AGENCY MANAGER): 07/09 speech re- evaluated patient: Pt may have honey thick liquids by small sips with cup, 100% nursing supervision and continue dysphagia I pureed diet Will continue continuous tube feeding via SBFT, pt refusing to eat pureed diet 3/1 G tube placement 07/11 restart tube feeds Chronic disease anemia 06/12/2018 Assessment & Plan (02/05/2019 6:51 AM CDT): H&H is stable. Continue monitoring with daily CBC Assessment & Plan (08/22/2018 6:24 AM CDT): Hemoglobin is at baseline. Will monitor for signs of bleeding. Assessment & Plan (07/11/2018 1:49 PM BETTING AGENCY MANAGER): HGB 10.6 / HCT 33.7 Will monitor with am labs Assessment & Plan (06/26/2018 2:48 PM BETTING AGENCY MANAGER): Stable. Hgb 10.6 (9). No pressor requirements. No signs of bleeding. - No indication for transfusion at this time - CBC daily Assessment & Plan (06/24/2018 12:14 PM BETTING AGENCY MANAGER): Stable. Hgb 8 (8.2). No pressor requirements. No signs of bleeding. - No indication for transfusion at this time - CBC daily Assessment & Plan (06/23/2018 2:12 PM BETTING AGENCY MANAGER): Stable. Hgb 8.2 (8.3). Not requiring pressor support. No signs of active bleeding. - No indication for transfusion at this time; however, consider if patient becomes hemodynamically unstable with increased pressor requirements or hgb < 8 and symptomatic - CBC daily Assessment & Plan (06/23/2018 4:44 AM BETTING AGENCY MANAGER): Hgb 8.3. No current pressor requirements. No signs of active bleeding. - No indication for transfusion at this time; however, consider if patient becomes hemodynamically unstable with increased pressor requirements or hgb < 8 and symptomatic - CBC daily Assessment & Plan (06/22/2018 6:40 PM BETTING AGENCY MANAGER): Hgb 7.8 (6.8) s/p 1 unit PRBCs. No current pressor requirements. No signs of active bleeding. - No indication for transfusion at this time; however, consider if patient becomes hemodynamically unstable with increased pressor requirements or hgb < 8 and symptomatic - CBC daily Assessment & Plan (06/17/2018 5:20 PM BETTING AGENCY MANAGER): Post-op anemia, No pressor requirements. No signs of active bleeding. - No indication for transfusion at this time however will transfuse if pressor requirement increases. - Goal to keep Hb > 7.5 Assessment & Plan (06/16/2018 8:02 PM BETTING AGENCY MANAGER): Post-op anemia, minimal pressor requirements. No signs of active bleeding. - No indication for transfusion at this time however will transfuse if pressor requirement increases. - Goal to keep Hb > 7.5 Assessment & Plan (06/15/2018 3:03 PM BETTING AGENCY MANAGER): Post-op anemia, minimal pressor requirements. No signs of active bleeding. - No indication for transfusion at this time however will transfuse if pressor requirement increases. - Goal to keep Hb > 7.5 Assessment & Plan (06/12/2018 3:06 PM BETTING AGENCY MANAGER): Hb is postop. No signs of active bleeding. - No indication for transfusion at this time. - Goal to keep Hb > 7.5 H/O mitral valve repair 06/12/2018 Overview (06/15/2019): Mitral valve repair with 28 mm Physio mitral annuloplasty ring Bilateral carotid artery stenosis 06/10/2018 Overview (08/23/2018): History right hemisphere and cerebellar strokes Carotid stenosis Followed at [facility] last study July 2018 Conclusions: 1. The [...] ultrasound. Assessment & Plan (06/27/2018 3:29 PM BETTING AGENCY MANAGER): CTA demonstrated significant L ROBERT. - Plan for OP follow up for carotid endarterectomy after discharge and recovery from CABG - daily asa Assessment & Plan (06/26/2018 2:57 PM BETTING AGENCY MANAGER): CTA demonstrated significant L ROBERT. - Plan for OP follow up for carotid endarterectomy after discharge and recovery from CABG Assessment & Plan (06/24/2018 12:10 PM BETTING AGENCY MANAGER): CTA demonstrated significant L ROBERT. - Plan for OP follow up for carotid endarterectomy after discharge and recovery from CABG Assessment & Plan (06/23/2018 2:14 PM BETTING AGENCY MANAGER): CTA demonstrated significant L ROBERT. - Plan for OP follow up for carotid endarterectomy after discharge and recovery from CABG Assessment & Plan (06/17/2018 5:31 PM BETTING AGENCY MANAGER): CTA demonstrated significant L ROBERT. - Plan for OP follow up for carotid endarterectomy after discharge and recovery from CABG Assessment & Plan (06/16/2018 8:14 PM BETTING AGENCY MANAGER): CTA demonstrated significant L ROBERT. - Plan for OP follow up for carotid endarterectomy after discharge and recovery from CABG Assessment & Plan (06/12/2018 4:47 PM BETTING AGENCY MANAGER): CTA demonstrated significant L ROBERT. - Plan for OP follow up for carotid endarterectomy after discharge and recovery from CABG Assessment & Plan (07/11/2018 1:38 PM BETTING AGENCY MANAGER): Per Vascular consult note : ' OK to proceed with coronary revascularization without further surgical carotid intervention - Patient may follow up with Dr. Cruz regarding his L cartoid stenosis and infrarenal AAA as an outpatient.' No further Vascular plans S/P CABG x 4 06/05/2018 Overview (06/22/2018): [...] in contractility of anterior, anterolateral and anteroseptal flynn. Inferior, inferolateral flynn remained hypokinetic. RV unchanged, normal function. MV ring with no residual MR, no stenosis (mean gradient 2mmHg). Assessment & Plan (08/22/2018 6:20 AM CDT): On 06/12/2018. Continue aspirin, Lipitor, beta-maximino and RASHAD-inhibitor. Assessment & Plan (07/14/2018 12:59 PM BETTING AGENCY MANAGER): The patient will need optimal glycemic control to promote healing. Assessment & Plan (07/13/2018 12:54 PM BETTING AGENCY MANAGER): The patient will need optimal glycemic control to promote healing. Assessment & Plan (07/10/2018 1:52 PM BETTING AGENCY MANAGER): The patient will need optimal glycemic control to promote healing. Assessment & Plan (07/09/2018 3:51 PM BETTING AGENCY MANAGER): The patient will need optimal glycemic control to promote healing. Assessment & Plan (07/08/2018 12:20 PM BETTING AGENCY MANAGER): The patient will need optimal glycemic control to promote healing. Assessment & Plan (07/07/2018 11:59 AM BETTING AGENCY MANAGER): The patient will need optimal glycemic control to promote healing. Assessment & Plan (07/06/2018 11:29 AM BETTING AGENCY MANAGER): The patient will need optimal glycemic control to promote healing. Assessment & Plan (07/01/2018 3:01 PM BETTING AGENCY MANAGER): The patient will need optimal glycemic control to promote healing. Assessment & Plan (06/27/2018 3:47 PM BETTING AGENCY MANAGER): S/p CABG x 4 And MV repair. Postop care to include: - ASA, statin daily - Metop 25 mg BID - Failed FEES, SBFT placed, enteral feeds at goal. Plan to repeat FEES on 06/29. - Colace/Senna dc'd 2/2 diarrhea - SCDs and SQ heparin for DVT prophylaxis - PT/OT Assessment & Plan (06/26/2018 2:47 PM BETTING AGENCY MANAGER): S/p CABG x 4 And MV repair. [...] PT/OT Assessment & Plan (06/25/2018 12:31 PM BETTING AGENCY MANAGER): S/p CABG x 4 And MV repair. Postop care to include: - ASA, statin daily - Failed FEES yesterday, SBFT placed, enteral feeds at goal. - Colace/Senna dc'd 2/2 diarrhea - SCDs and SQ heparin for DVT prophylaxis - PT/OT Assessment & Plan (06/24/2018 12:42 PM BETTING AGENCY MANAGER): S/p CABG x 4 And MV repair. Postop care to include: - ASA, statin - BB - failed swallow, SBFT placed, enteral feeds at goal. FEES pending today. - Colace/Senna dc'd 2/2 diarrhea - SCDs and SQ heparin for DVT prophylaxis - Pt to maximize function - place picc (pt has pulled out multiple peripheral IV's) Assessment & Plan (06/23/2018 2:10 PM BETTING AGENCY MANAGER): S/p CABG x 4 And MV repair. [...] OOBTC Assessment & Plan (06/22/2018 6:37 PM BETTING AGENCY MANAGER): S/p CABG x 4 And MV repair. [...] treat Assessment & Plan (06/17/2018 5:17 PM BETTING AGENCY MANAGER): S/p CABG x 4 And MV repair. [...] treat Assessment & Plan (06/16/2018 8:01 PM BETTING AGENCY MANAGER): S/p CABG x 4 And MV repair. Postop care to include: - ASA - Statin - Eventual BB when off inotrope - failed swallow, SBFT placed, enteral feeds started. - Colace/Senna for bowel regimen - Hold home flomax until able to take PO - SCDs and SQ heparin for DVT prophylaxis - Pt to evaluate and treat Assessment & Plan (06/15/2018 3:02 PM BETTING AGENCY MANAGER): S/p CABG x 4 And MV repair. Postop care to include: - ASA - Statin - Eventual BB when off inotrope - failed swallow, SBFT placed, enteral feeds started. - Colace/Senna for bowel regimen - Hold home flomax until able to take PO - SCDs and SQ heparin for DVT prophylaxis - Pt to evaluate and treat Assessment & Plan (06/14/2018 3:52 PM BETTING AGENCY MANAGER): S/p CABG x 4 And MV repair. [...] treat Assessment & Plan (06/13/2018 4:08 PM BETTING AGENCY MANAGER): S/p CABG x 4 And MV repair. Postop care to include: - ASA - Statin - Eventual BB when off inotrope - Bedside swallow eval then advance diet as tolerated if pt passes - Colace/Senna for bowel regimen - Resume home Flomax - SCDs and SQ heparin for DVT prophylaxis - Pt to evaluate and treat Assessment & Plan (06/12/2018 4:48 PM BETTING AGENCY MANAGER): S/p CABG x 4 And MV repair postop care to include: Stress ulcer prophylaxis: PPI while intubated, transition to oral and continue if on home ppi ppi Nutrition plan: NPO for now: ADAT after extubation Bowel regimen: colace, senna DVT prophylaxis: SCDs, add SQH POD1 if no bleeding issues Physical therapy/Activity: OOBTC and ambulate with PT POD1 Assessment & Plan (07/11/2018 1:38 PM BETTING AGENCY MANAGER): Post op from 4 v CABG and [...] supervision and continue dysphagia I pureed diet / G tube placement 07/11 restart tube feeding [...] sick. Assessment & Plan (06/07/2018 12:43 PM BETTING AGENCY MANAGER): Smoking cessation education Assessment & Plan (06/04/2018 3:12 AM BETTING AGENCY MANAGER): Patient states he smokes 2 packs a day and has done so since age 10. Permanent atrial fibrillation 06/04/2018 Assessment & Plan (06/26/2021 8:14 AM BETTING AGENCY MANAGER): H/O A-fib -enoxaparin 40 mg q.d. -carvedilol 25 mg b.i.d. Assessment & Plan (06/25/2021 11:26 AM BETTING AGENCY MANAGER): H/O A-fib -enoxaparin 40 mg q.d. -carvedilol 25 mg b.i.d. Assessment & Plan (06/24/2021 1:44 PM BETTING AGENCY MANAGER): H/O A-fib -enoxaparin 40 mg q.d. -carvedilol 25 mg b.i.d. Assessment & Plan (06/23/2021 1:33 PM BETTING AGENCY MANAGER): H/O A-fib -enoxaparin 40 mg q.d. -carvedilol 25 mg b.i.d. Assessment & Plan (06/22/2021 12:59 AM BETTING AGENCY MANAGER): Patient not on any anticoagulation. Continue beta-maximino [...] are. Assessment & Plan (06/27/2018 3:20 PM BETTING AGENCY MANAGER): Hx of paroxysmal afib. Rate controlled on [...] daily. Assessment & Plan (06/26/2018 3:08 PM BETTING AGENCY MANAGER): Hx of paroxysmal afib. Rate controlled on [...] daily. Assessment & Plan (06/25/2018 5:09 PM BETTING AGENCY MANAGER): Hx of paroxysmal afib. On home metop [...] daily Assessment & Plan (06/25/2018 5:17 AM BETTING AGENCY MANAGER): Hx of paroxysmal afib. On home metop [...] repletion Assessment & Plan (06/24/2018 12:08 PM BETTING AGENCY MANAGER): Hx of paroxysmal afib. On home metop [...] NSR Assessment & Plan (06/23/2018 8:59 PM BETTING AGENCY MANAGER): Hx of paroxysmal afib. On home metop 50mg BID and ASA 81mg Daily. Currently, NSR 77 bpm. - Amio decreased to 400mg PT Q 8hours - Keep K > 4.2 and Mg > 2 - Metop 6.25 mg BID - heparin gtt per nomagram for systemic anticoagulation. - Patient is a high fall risk; therefore, will discuss plans for correction systemic anticoagulation with surgical team. Assessment & Plan (06/23/2018 1:28 PM BETTING AGENCY MANAGER): Hx of paroxysmal afib. On home metop [...] fall risk; therefore, will discuss plans for long filler cigar roller machine systemic anticoagulation with surgical team. 1200: Text cardiac surgery resident regarding plans for systemic correction anticoagulation. Awaiting recommendations. Assessment & Plan (06/22/2018 5:42 PM BETTING AGENCY MANAGER): Hx of paroxysmal afib. On home metop 50mg BID and ASA 81mg Daily. Currently, NSR 67 bpm. - Amio PT 400mg Q 8hours - Keep K > 4.2 and Mg > 2 - Consider restarting home metop - heparin gtt per nomagram for systemic anticoagulation 1600: potassium 3.6. Repletion with 40mEq PT. Assessment & Plan (06/17/2018 5:30 PM BETTING AGENCY MANAGER): Hx of paroxysmal afib at baseline on no anticoagulation. Afib RVR In 120s-130s - transition amiodarone gtt to PT 400mg Q 8hours - Keep K > 4.2 and Mg > 2 - Eventual beta maximino when off milrinone - heparin gtt per nomagram for systemic anticoagulation Assessment & Plan (06/16/2018 8:14 PM BETTING AGENCY MANAGER): Hx of paroxysmal afib at baseline on no anticoagulation. Afib RVR In 120s-130s - Keep amio drip at 1 - Keep K > 4.2 and Mg > 2 - Epi to off - Eventual beta maximino when off milrinone - heparin gtt per nomagram for systemic anticoagulation Assessment & Plan (06/15/2018 3:19 PM BETTING AGENCY MANAGER): Hx of paroxysmal afib at baseline on no anticoagulation. Afib RVR In 120s-130s - Amio bolus 150 - Keep amio drip at 1 - Keep K > 4.2 and Mg > 2 - Epi wean Q 8hours - Eventual beta maximino when off inotrope - will discuss timing of systemic anticoagulation with CT surgery Assessment & Plan (06/14/2018 3:51 PM BETTING AGENCY MANAGER): Hx of paroxysmal afib at baseline on [...] tomorrow Assessment & Plan (07/11/2018 1:37 PM BETTING AGENCY MANAGER): Now in NSR Continue Beta-maximino EKG No planned anticoagulation-high fall risk Ongoing telemetry 07/[address] 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 Unable to currently walk. -PT/OT consulted Assessment & Plan (06/22/2021 1:00 AM BETTING AGENCY MANAGER): Patient unable to provide any history Assessment & Plan (09/15/2018 6:32 AM CDT): Patient has residual cognitive deficits. Continue statin and aspirin. Assessment & Plan (06/04/2018 3:18 AM BETTING AGENCY MANAGER): Patient denies this. Per EMR patient had a right cerebellar infarct in 2012. Patient will be started on aspirin and statin. Type 2 diabetes mellitus wit h hyperglycemia, without long-term current use of insulin 07/01/2012 Overview (08/23/2018): With cerebrovascular disease right hemisphere and cerebellar stroke Assessment & Plan (06/26/2021 8:20 AM BETTING AGENCY MANAGER): Patient has a history of diabetes per [...] >200 Assessment & Plan (06/25/2021 12:31 PM BETTING AGENCY MANAGER): Patient has a history of diabetes per [...] >200 Assessment & Plan (06/24/2021 1:49 PM BETTING AGENCY MANAGER): Patient has a history of diabetes per review of EMR however does not appear to be on any medications. He was on insulin in the past seems. Patient presented with a blood sugar of 306. Will monitor on sliding scale. Will likely need adjustment in insulin. -A1c 8.2 -lanus 10 Qam and sliding scale lispro Assessment & Plan (06/23/2021 3:17 PM BETTING AGENCY MANAGER): Patient has a history of diabetes per review of EMR however does not appear to be on any medications. He was on insulin in the past seems. Patient presented with a blood sugar of 306. Will monitor on sliding scale. Will likely need adjustment in insulin. -A1c 8.2 -lanus 10 Qam and sliding scale lispro Assessment & Plan (06/22/2021 12:59 AM BETTING AGENCY MANAGER): Patient has a history of diabetes per [...] is. Assessment & Plan (07/14/2018 1:12 PM BETTING AGENCY MANAGER): Over the previous 24 hours, blood glucose [...] today, please call Desiree Torrez NP at [phone]. If after hours, please contact the Diabetes Fellow at [phone]. Assessment & Plan (07/13/2018 1:07 PM BETTING AGENCY MANAGER): Over the previous 24 hours, blood glucose [...] today, please call Desiree Torrez NP at [phone]. If after hours, please contact the Diabetes Fellow at [phone]. Assessment & Plan (07/10/2018 1:57 PM BETTING AGENCY MANAGER): Over the previous 24 hours, blood glucose [...] today, please call Desiree Torrez NP at [phone]. If after hours, please contact the Diabetes Fellow at [phone]. Assessment & Plan (07/09/2018 3:57 PM BETTING AGENCY MANAGER): Over the previous 24 hours, blood glucose [...] today, please call Desiree Torrez NP at [phone]. If after hours, please contact the Diabetes Fellow at [phone]. Assessment & Plan (07/08/2018 12:20 PM BETTING AGENCY MANAGER): Over the previous 24 hours, blood glucose [...] today, please call Denita Garcia NP at [phone]. If after hours, please contact the Diabetes Fellow at [phone]. Assessment & Plan (07/07/2018 12:01 PM BETTING AGENCY MANAGER): Over the previous 24 hours, blood glucose [...] today, please call Desiree Torrez NP at [phone]. If after hours, please contact the Diabetes Fellow at [phone]. Assessment & Plan (07/06/2018 11:30 AM BETTING AGENCY MANAGER): Pt is on Glucerna 50cc/hr for 24 hour per day Oral intake continues to be poor. Recommendation: Continue current treatment 1. Mid dose lispro correction q4h 2. NPH insulin 9 units q8h Please notify DM team if Tube feeding plan changes Please call JAVIER / Osmin Lizarraga M.D. At [phone] for any questions. If after 5 PM or weekends, please contact the Diabetes Fellow at [phone], option #1 Assessment & Plan (07/03/2018 9:48 AM BETTING AGENCY MANAGER): The patient was converted from nocturnal to [...] For diabetes-related questions today only please call [phone]. For after- hours help please contact the diabetes fellow at [phone]. Assessment & Plan (07/02/2018 5:12 PM BETTING AGENCY MANAGER): Over the past 24 hr, his glucose [...] For diabetes-related questions today only please call [phone]. For after- hours help please contact the diabetes fellow at [phone]. Assessment & Plan (07/01/2018 5:48 PM BETTING AGENCY MANAGER): Over the past 24 hr, his glucose [...] today, please call Denita Garcia NP at [phone]. If after hours, please contact the Diabetes Fellow at [phone]. Assessment & Plan (07/11/2018 1:49 PM BETTING AGENCY MANAGER): Continuous tube feedings w/ water flushes Continue scheduled NPH q 8 hrs Continue blood glucose checks. Continue SSI Modified barium swallow (MBS) 06/30 showed aspiration Calorie count, diet during the day Endocrine consulted- will follow note Assessment & Plan (06/27/2018 3:32 PM BETTING AGENCY MANAGER): Hx of DM. A1c 6.0. Not on home meds. Currently, TF at goal and BG 150 to 170s. - Continue HD SSI - scheduled NPH to 11 units q8h Assessment & Plan (06/27/2018 1:22 AM BETTING AGENCY MANAGER): Hx of DM. A1c 6.0. Not on home meds. Currently, TF at goal and BG 150 to 220s. - Continue HD SSI - Increase scheduled NPH to 11 units q8h Assessment & Plan (06/26/2018 2:58 PM BETTING AGENCY MANAGER): Hx of DM. A1c 6.0. Not on home meds. Currently, TF at goal and BG 150 to 220s. - Continue high dose slide - Increase scheduled NPH to 10 units q8h Assessment & Plan (06/25/2018 12:27 PM BETTING AGENCY MANAGER): Hx of DM. Not on home meds. A1c 6.0. Currently, TF at goal and BG > 200 at least 2/6 checks. - Continue high dose slide - Increase scheduled NPH to 8 units q8h 1230: Remains hyperglycemic in the 200s, will increase NPH to 10u Q8h Assessment & Plan (06/24/2018 12:28 PM BETTING AGENCY MANAGER): Hx of DM. Not on home meds. A1c 6.0. Currently, TF at goal and BG > 200 at least 2/6 checks. - Continue high dose slide - increase scheduled NPH to 6 units q8h Assessment & Plan (06/23/2018 2:13 PM BETTING AGENCY MANAGER): Hx of DM. Not on home meds. A1c 6.0. Currently, TF at goal and blood glucose 134- 214 on high dose SSI Q4H and scheduled NPH. - Continue high dose slide - scheduled NPH 5 units q8h Assessment & Plan (06/22/2018 6:05 PM BETTING AGENCY MANAGER): Hx of DM. Not on home meds. Currently, TF at goal and blood glucose 175- 216 on high dose SSI Q4H and scheduled NPH. - Continue high dose slide - scheduled NPH 5 units q8h Assessment & Plan (06/17/2018 5:33 PM BETTING AGENCY MANAGER): Hx of DM on no home meds. On high dose SSI Q4H. - Continue high dose slide - blood glucose has been labile, will begin NPH once blood glucose more stable Assessment & Plan (06/16/2018 8:17 PM BETTING AGENCY MANAGER): Hx of DM on no home meds. On high dose SSI Q4H. - Continue high dose slide - May need basal insulin with initiation of tube feeds Assessment & Plan (06/15/2018 3:25 PM BETTING AGENCY MANAGER): Hx of DM on no home meds. On high dose SSI Q4H. - Continue high dose slide - May need basal insulin with initiation of tube feeds Assessment & Plan (06/14/2018 4:02 PM BETTING AGENCY MANAGER): Hx of DM on no home meds. On high dose SSI Q4H. - Continue high dose slide - May need basal insulin with initiation of tube feeds Alcohol use disorder, moderate, dependence 05/31 Assessment & Plan (08/22/2018 6:25 AM CDT): History of. Patient states he has not had alcohol since he was discharged from [facility]. Patient was discharged on 07/14/2018. Continue thiamine and multivitamin. Assessment & Plan (06/04/2018 3:29 AM BETTING AGENCY MANAGER): Patient is a binge drinker he drinks once a week 12 beers and a pt of whiskey. He states his last drink was over a week ago. However patient is diaphoretic with elevated blood pressures and appears to be a poor historian. Will have to monitor for signs of alcohol withdrawals. Will start patient on folic acid, thiamine and multivitamin. Benign hypertension Essential hypertension Assessment & Plan (06/26/2021 8:18 AM BETTING AGENCY MANAGER): -hydralazine 50 mg t.i.d. -furosemide 40 mg q.d. Assessment & Plan (06/25/2021 11:29 AM BETTING AGENCY MANAGER): -hydralazine 50 mg t.i.d. -furosemide 40 mg q.d. -isosorbide mononitrate 60 mg q.d. Assessment & Plan (06/24/2021 1:48 PM BETTING AGENCY MANAGER): -hydralazine 50 mg t.i.d. -furosemide 40 mg q.d. -isosorbide mononitrate 60 mg q.d. Assessment & Plan (06/23/2021 3:14 PM BETTING AGENCY MANAGER): Home medications resumed with hold parameters. Will hold diuretics until we can repeat BMP in the morning. -furosemide 40 mg q.d. Assessment & Plan (06/22/2021 1:00 AM BETTING AGENCY MANAGER): Home medications resumed with hold parameters. Will hold diuretics until we can repeat BMP in the morning. Assessment & Plan (02/05/2019 6:45 AM CDT): Holding lisinopril. Continue with metoprolol and hydralazine. Will start on hydralazine 10 mg IV q.4 hours as needed for blood pressure elevation above 160. Titrate the dose of oral antihypertensives as needed Resolved Problems Problem Noted Date Diagnosed Date Resolved Date COVID-19 12/01/2023 11/23/2024 Acute midline low back pain without sciatica 11/23/2024 Angina pectoris, unspecified 03/01/2022 11/23/2024 Acute idiopathic gout of left ankle 06/25/2021 11/23/2024 Assessment & Plan (06/26/2021 8:19 AM BETTING AGENCY MANAGER): Persistent left ankle pain. Denies h/o gout. Possible/likely gout. -uric acid level 8.9, not diagnostic for gout but given patient's symptoms possible contributor. -naproxen 500 bid- patient has decreased pain after starting treatment -financial aid counselor about diet and food choices to avoid gout flares Assessment & Plan (06/25/2021 12:37 PM BETTING AGENCY MANAGER): Persistent left ankle pain. Denies h/o gout. Possible/likely gout. -uric acid level 8.9, not diagnostic for gout but given patient's symptoms possible contributor. -naproxen 500 bid- patient has decreased pain after starting treatment Pain of left lower extremity 06/22/2021 11/23/2024 Assessment & Plan (06/26/2021 8:13 AM BETTING AGENCY MANAGER): Associated with LE edema. Exact etiology unclear [...] naproxen. Assessment & Plan (06/25/2021 11:26 AM BETTING AGENCY MANAGER): Associated with LE edema. Exact etiology unclear [...] PRN Assessment & Plan (06/24/2021 1:44 PM BETTING AGENCY MANAGER): Associated with LE edema. Exact etiology unclear [...] PRN Assessment & Plan (06/23/2021 4:13 PM BETTING AGENCY MANAGER): Associated with LE pain. Exact etiology unclear [...] edema. Assessment & Plan (06/22/2021 12:58 AM BETTING AGENCY MANAGER): Exact etiology unclear as patient cannot provide any history. Could be 2/2 CHF exac and/or uncontrolled DM. PT has been consulted. Fall precautions. Will treat suspect causes. Pleural effusion on right 02/05/2019 Assessment & Plan (02/05/2019 6:44 AM CDT): Reviewed CT and the chest x-ray. Seem to be loculated right-sided pleural effusion with some atelectasis. Patient currently in no respiratory distress. No fever or leukocytosis noted. Will continue monitoring. Start on bedside incentive spirometery Hypertensive emergency 09/15/201811/23 Assessment & Plan (09/15/2018 6:31 AM CDT): Secondary to pain from urinary retention. Patient's blood pressure was noted to be as high as 244/152. Patient's blood pressure improved after Lara exchange. Patient did go into flash pulmonary edema became acutely short of breath. Patient is receiving IV Lasix. Currently blood pressures have improved. Will continue to monitor. Obstructed Lara catheter 08/22/2018 KARLA (acute kidney injury) 07/02/2018 Assessment & Plan (07/06/2018 11:31 AM BETTING AGENCY MANAGER): Complicated DM management and increases risk of hypoglycemia. Creat is at 1.21 (07/06) Assessment & Plan (07/12/2018 12:37 PM BETTING AGENCY MANAGER): Creat stable 1.00 Continue to hold diuresis Avoid nephrotoxins Will monitor High risk medication use 07/01/2018 Assessment & Plan (07/14/2018 12:58 PM BETTING AGENCY MANAGER): The use of intensive insulin therapy in the setting of variable po intake, tube feeds, altered mental status, increases the risk of glycemic variability. Will closely monitor blood glucose to prevent hypo or hyperglycemia. Assessment & Plan (07/13/2018 12:53 PM BETTING AGENCY MANAGER): The use of intensive insulin therapy in the setting of variable po intake, tube feeds, altered mental status, increases the risk of glycemic variability. Will closely monitor blood glucose to prevent hypo or hyperglycemia. Assessment & Plan (07/10/2018 1:52 PM BETTING AGENCY MANAGER): The use of intensive insulin therapy in the setting of variable po intake, tube feeds, altered mental status, increases the risk of glycemic variability. Will closely monitor blood glucose to prevent hypo or hyperglycemia. Assessment & Plan (07/09/2018 3:51 PM BETTING AGENCY MANAGER): The use of intensive insulin therapy in the setting of variable po intake, tube feeds, altered mental status, increases the risk of glycemic variability. Will closely monitor blood glucose to prevent hypo or hyperglycemia. Assessment & Plan (07/08/2018 12:20 PM BETTING AGENCY MANAGER): The use of intensive insulin therapy in the setting of variable po intake, tube feeds, altered mental status, increases the risk of glycemic variability. Will closely monitor blood glucose to prevent hypo or hyperglycemia. Assessment & Plan (07/07/2018 11:58 AM BETTING AGENCY MANAGER): The use of intensive insulin therapy in the setting of variable po intake, tube feeds, altered mental status, increases the risk of glycemic variability. Will closely monitor blood glucose to prevent hypo or hyperglycemia. Assessment & Plan (07/06/2018 11:31 AM BETTING AGENCY MANAGER): The use of intensive insulin therapy in the setting of variable po intake, tube feeds, altered mental status, increases the risk of glycemic variability. Will closely monitor blood glucose to prevent hypo or hyperglycemia. Assessment & Plan (07/01/2018 3:03 PM BETTING AGENCY MANAGER): The use of intensive insulin therapy in the setting of variable po intake, tube feeds, altered mental status, increases the risk of glycemic variability. Will closely monitor blood glucose to prevent hypo or hyperglycemia. Leukocytosis 06/22/2018 06/24/2018 Overview (06/22/2018): Preop Proteus UTI. Periop vanc/ancef. Ceftriaxone 7 day course completed. Assessment & Plan (06/23/2018 2:11 PM BETTING AGENCY MANAGER): WBC 11.2 (11.3). Pt remains afebrile and is not requiring pressor support. 2/7 UA negative and 2/7 BC revealed NGTD. C-diff neg on 06/22. - Discontinued empiric coverage for PNA (Cefepime 1000mg q12h and Vanc 1250 mg q24h) - F/U on hardin cultures Assessment & Plan (06/23/2018 4:43 AM BETTING AGENCY MANAGER): WBC 11.3. Pt remains afebrile and is [...] leukocytosis) Assessment & Plan (06/22/2018 6:49 PM BETTING AGENCY MANAGER): WBC 11.3. Pt remains afebrile and is [...] 06/28/2018 Assessment & Plan (06/27/2018 3:45 PM BETTING AGENCY MANAGER): Likely 2/2 aggressive diuresis. Sodium stable at 148. Metolazone 10mg BID today. FWF at 50ml continuous via enteral route FB (+) 900ml - Continue FWF to 50ml/hr. - FBG even Assessment & Plan (06/26/2018 11:44 PM BETTING AGENCY MANAGER): Likely 2/2 aggressive diuresis. Sodium down to 147 (148). Metolazone 10mg BID today. - Continue FWF to 50ml/hr pending AM BMP - FBG even Assessment & Plan (06/26/2018 3:01 PM BETTING AGENCY MANAGER): Sodium rising overnight to 148 (150). Likely 2/2 aggressive diuresis. Free water deficit to correct to 145 is 1.2 L. - Continue FWF to 50ml/hr - Diuresis with Metolazone 10mg BID - FBG even - Repeat BMP at 1400 1400: BMP revealed Assessment & Plan (06/25/2018 1:26 PM BETTING AGENCY MANAGER): Sodium rising overnight to 151 (147). Likely 2/2 aggressive diuresis. Free water deficit to correct to 145 is 2.4L. - Increase FWF to 50ml/hr continuous - D/c lasix - Metolazone 10mg BID - FBG even - Repeat BMP at noon Assessment & Plan (06/25/2018 5:25 AM BETTING AGENCY MANAGER): Sodium rising overnight to 151 (147). Likely relating to diuresis. - increase FWF to 100ml Q4 -Consider Metolazone with further diruesis Assessment & Plan (06/24/2018 12:30 PM BETTING AGENCY MANAGER): Na up to 147 from 144. May be in part related to precedex which has now been discontinued. - increase FWF to 60 ml Q4. Assessment & Plan (06/15/2018 3:27 PM BETTING AGENCY MANAGER): Na with some downward trend to 145, - stop D5W - FWF 60ml Q4H when SBFT in place Assessment & Plan (06/14/2018 4:04 PM BETTING AGENCY MANAGER): Na up to 148 with D5W at 25ml/hr initiated yesterday. Now improved with Na 145. - Decrease D5W to 10ml/hr as carrier - FWF 60ml Q4H when SBFT in place Acute respiratory failure with hypoxemia 06/13/2018 06/24/2018 Assessment & Plan (06/23/2018 5:56 PM BETTING AGENCY MANAGER): Extubated to GA on 211. AM CXR revealed worsening bibasilar atelectasis, mild [...] Liter. Assessment & Plan (06/23/2018 4:05 AM BETTING AGENCY MANAGER): Extubated to NC O2 this pm. Net (+) 1.3 L - PT/OOBTC/AMB - Wean FiO2 for sats > 92% - scheduled albuterol and atrovent - IS/acapella as pt able to participate, NT suction as needed - Consider diuresis for increased O2 Requirements Assessment & Plan (06/22/2018 6:49 PM BETTING AGENCY MANAGER): Intubated on 06/21 for hypoxemia and CXR [...] Requirements Assessment & Plan (06/17/2018 5:29 PM BETTING AGENCY MANAGER): 2L NC. Difficulty participating with pulm hygiene due to delirium. CXR showing L layering effusion, LLL collapse and bibasilar atelectasis slightly improved today. - Lasix gtt at 5 mg and metolazone for diuresis - OOBTC/IS/acapella as pt able to participate - NT suction as needed - Wean O2 for sats > 92% Assessment & Plan (06/16/2018 8:13 PM BETTING AGENCY MANAGER): 2L NC. Difficulty participating with pulm hygiene due to delirium. CXR showing L layering effusion, LLL collapse and bibasilar atelectasis. - Lasix and metolazone for diuresis - OOBTC/IS/acapella as pt able to participate - NT suction as needed - Wean O2 for sats > 92% -will need to consider PEP therapy to assist with pulm hygiene Assessment & Plan (06/15/2018 3:18 PM BETTING AGENCY MANAGER): 2L NC. Difficulty participating with pulm hygiene due to delirium. CXR showing L layering effusion and bibasilar atelectasis. - 80 lasix and 10 metolazone BID for FBG negative 1L - OOBTC/IS/acapella as pt able to participate - NT suction as needed - Wean O2 for sats > 92% Assessment & Plan (06/14/2018 3:41 PM BETTING AGENCY MANAGER): Extubated to CPAP POD 0. Now on [...] 92% Assessment & Plan (06/13/2018 4:00 PM BETTING AGENCY MANAGER): Extubated to CPAP 10 last night. Now [...] course Assessment & Plan (07/12/2018 12:36 PM BETTING AGENCY MANAGER): Continue sleep hygiene and night-time seroquel Multiple therapies (PT, OT, Speech) CTM Geriatrics consulted- recommendations for an MRI of the brain to r/o ischemia, EEG to r/o seizures Continue Ramelteon 07/10 patient confused and agitated after procedure DC amiodarone, DC tamsulosin, decrease seroquel (per Dr. Briseno) 3/2 sitter at bedside for pt safety. Oriented to self and location. Remains implusive. Will continue to monitor. 3/ Remains with sitter, impulsive. 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 Held [...] QTc Assessment & Plan (06/25/2018 5:08 PM BETTING AGENCY MANAGER): Baseline slurred speech 2/2 CVC. Seroquel dose [...] QTc Assessment & Plan (06/24/2018 12:19 PM BETTING AGENCY MANAGER): Baseline slurred speech 2/2 CVC. Precedex gtt [...] QTc Assessment & Plan (06/23/2018 9:02 PM BETTING AGENCY MANAGER): Baseline decreased mentation with slurred speech 2/2 [...] sleep Assessment & Plan (06/23/2018 2:05 PM BETTING AGENCY MANAGER): Baseline decreased mentation with slurred speech 2/2 [...] sleep Assessment & Plan (06/23/2018 4:06 AM BETTING AGENCY MANAGER): Baseline decreased mentation with slurred speech 2/2 [...] sleep Assessment & Plan (06/22/2018 6:57 PM BETTING AGENCY MANAGER): Baseline decreased mentation with slurred speech 2/2 [...] gtt Assessment & Plan (06/17/2018 5:32 PM BETTING AGENCY MANAGER): Pt delirious following extubation. 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 70% L ICA stenosis. + history for ETOH abuse - avoid ativan -Haldol PRN -seroquel increased to 75 mg [id number] - SBFT with enteral feeds, failed swallow - Encourage daytime activity, frequent reorientation, minimize interruptions in sleep - Likely past the window for ETOH withdrawal - Consider head CT if mental status does not improve given stroke history - Thiamine and folic acid Assessment & Plan (06/16/2018 8:17 PM BETTING AGENCY MANAGER): Pt delirious following extubation. Old bilateral cerebellar [...] acid Assessment & Plan (06/15/2018 3:25 PM BETTING AGENCY MANAGER): Pt delirious following extubation. Old bilateral cerebellar [...] acid Assessment & Plan (06/14/2018 3:52 PM BETTING AGENCY MANAGER): Pt delirious following extubation. Old bilateral cerebellar [...] acid Assessment & Plan (06/13/2018 4:22 PM BETTING AGENCY MANAGER): Pt delirious following extubation last night. Per [...] does not improve given stroke history Acute respiratory failure with hypoxia 06/12/2018 11/23/2024 Assessment & Plan (06/13/2018 4:17 AM BETTING AGENCY MANAGER): As expected post surgery requiring CPB. No history of lung disease but 2ppd smoking history. Remaining intubated this evening. Eventually extubated to GA. - Wean supplemental O2 to keep sat >92% - Aggressive pulmonary toileting with incentive spirometry q1h - OOBTC and ambulate POD1 Additional Care: Post extubation CXR with small lung volumes. Sats low 90s on 6L. Placed on CPAP. Will plan to take off with improved oxygenation or by morning. Improving command following and verbalizing more overnight. Assessment & Plan (06/12/2018 3:06 PM BETTING AGENCY MANAGER): As expected post surgery requiring CPB. No [...] spirometry q1h - OOBTC and ambulate POD1 Acute pain 06/12/2018 06/25/2018 Assessment & Plan (06/24/2018 12:16 PM BETTING AGENCY MANAGER): Patient denies pain on exam. - avoid narcotics in light of delirium - Tylenol PRN Assessment & Plan (06/23/2018 2:07 PM BETTING AGENCY MANAGER): Patient denies pain on exam. - Discontinue Dex gtt - Dc'd oxy 2/2 hypersomnia delirium - Tylenol PRN pain 1300: Patient remain calm s/p discontinuation of precedex gtt. Continues to FC, HERNDON, and A&Ox1. Assessment & Plan (06/22/2018 6:28 PM BETTING AGENCY MANAGER): Currently, drowsy on precedex gtt and not endorsing pain. - Discontinue Dex gtt with plan to extubate - Discontinue seroquel 2/2 drowsiness on exam - Tylenol and oxycodone PRN pain 1827: restarted Precedex gtt 2/2 agitation. Assessment & Plan (06/17/2018 5:29 PM BETTING AGENCY MANAGER): Pt continues to be delirious. Moans but denies discomfort. Receiving Dilaudid PRN. Seroquel given with improvement. Ativan given overnight, pt very lethargic this morning, difficult to arouse -avoid ativan -scheduled seroquel 75 mg Q 8hours -avoid opiates, benzos - Tylenol and oxycodone PRN Assessment & Plan (06/16/2018 8:12 PM BETTING AGENCY MANAGER): Pt continues to be delirious. Moans but denies discomfort. Receiving Dilaudid PRN. Seroquel given with improvement. Ativan given overnight, pt very lethargic this morning, difficult to arouse -avoid ativan -scheduled seroquel BID, will switch to TID once pt is more awake -avoid opiates, benzos - Tylenol and oxycodone PRN Assessment & Plan (06/15/2018 3:15 PM BETTING AGENCY MANAGER): Pt continues to be delirious. Moans but denies discomfort. Receiving Dilaudid PRN. Seroquel given with improvement -scheduled seroquel BID -avoid opiates, benzos - Tylenol and oxycodone PRN Assessment & Plan (06/14/2018 3:40 PM BETTING AGENCY MANAGER): Pt continues to be delirious. Moans in pain occasionally. Receiving Dilaudid PRN. - Continue dilaudid PRN 0.25 Q1H until enteral access available then will start scheduled Tylenol and PRN oxy Assessment & Plan (06/13/2018 4:06 PM BETTING AGENCY MANAGER): Pt delirious. Moaning in pain. - Dilaudid PRN 0.25 Q1H - Schedule Tylenol and oxy PRN if pt passes bedside swallow Assessment & Plan (06/12/2018 3:06 PM BETTING AGENCY MANAGER): Expected post median thoracotomy surgery. -Fentanyl IV prn while intubated - Scheduled Tylenol - prn oxy - lido patches Diarrhea 06/11/2018 06/13/2018 Assessment & Plan (06/11/2018 1:51 PM BETTING AGENCY MANAGER): Reported frequent diarrhea C diff ordered and pending Dr Silva aware. Scabies 06/05/2018 06/11/2018 Assessment & Plan (06/10/2018 12:32 PM BETTING AGENCY MANAGER): Dermatology consult-appreciate recs Add Sarna lotion for pruritis- pt does not have Scabies Assessment & Plan (06/07/2018 12:47 PM BETTING AGENCY MANAGER): Dermatology consult-to be called on Friday Scabies vs bed bugs (OSH treated with permethrin on 06/05) Urinary retention 06/05/2018 11/23/2024 Assessment & Plan (09/15/2018 6:28 AM CDT): [...] Flomax. Assessment & Plan (06/10/2018 12:31 PM BETTING AGENCY MANAGER): Patient has lara catheter in place Continue Flomax Assessment & Plan (06/07/2018 12:40 PM BETTING AGENCY MANAGER): Patient has lara catheter in place continue Flomax Need to send UA Chest pain 06/04/2018 08/23/2018 Assessment & Plan (06/04/2018 3:20 AM BETTING AGENCY MANAGER): ACS. Troponin trending up. 0.14 to 0.25. Will await 3rd troponin. EKG showed sinus tachycardia with occasional PVCs, nonspecific ST changes in leads 1 and [address]. No obvious ST changes. Patient is currently on a heparin drip. Cardiology has been consulted will await their evaluation. NPO until Cardiology sees patient. Hyperglycemia 06/04/2018 08/23/2018 Assessment & Plan (06/04/2018 3:15 AM BETTING AGENCY MANAGER): HbA1c is 6. Patient is prediabetic. Will place him on a low-dose sliding scale. Pulmonary edema 06/04/2018 06/25/2018 Assessment & Plan (06/25/2018 5:22 AM BETTING AGENCY MANAGER): Mild pulmonary edema. Post-respiratory failure requiring prior reintubation. Coarse breath sounds bilaterally. Lasix 40mg TID today -Lasix TID -FBG - 500ml to -1L -Aldactone Additional Care: Overnight worsening hypernatremia. Held off on further diuresis. May benefit from Metolazone. Assessment & Plan (06/08/2018 10:47 AM BETTING AGENCY MANAGER): Continue IV lasix FBG - 1 L Assessment & Plan (06/07/2018 12:48 PM BETTING AGENCY MANAGER): Continue IV lasix Assessment & Plan (06/04/2018 3:12 AM BETTING AGENCY MANAGER): No prior history of CHF. EF was 55-60% in 2013. Will order an echo. Patient received Lasix in the ED. NSTEMI (non-ST elevated myoc ardial infarction) 06/04/2018 08/23/2018 Stable angina pectoris 06/03/201806/23 Overview (06/05/2018): Added automatically from request for surgery [id number] Assessment & Plan (06/11/2018 1:48 PM BETTING AGENCY MANAGER): Pre-OP CABG-continue aspirin, statin, beta maximino Continue heparin gtt Remains pain free TTE showed EF < 30%; Viability : normal viability of the whole left ventricle Vein mapping completed and in EPIC; Carotids > 70%- vascular consulted and ok to proceed with surgery- will address carotids as OP after recovery Assessment & Plan (06/07/2018 12:44 PM BETTING AGENCY MANAGER): Pre-OP CABG-aspirin, statin, beta maximino Continue heparin gtt Check carotids, vein mapping, TTE, viability study Stroke 08/23/2018 Angio-edema 11/23/2024 Immunizations Immunization Administration Dates Next Due Parametric Dining SARS-CoV-2 Monovalent Vaccination (12+ Yrs) PURPLE 06/22/2021(Deferred: Patient decision) Surgical History Surgery Date Site/Laterality Comments CENTRAL LINE PLACEMENT > 5 YEARS 07/27/2012 N/A IR G TUBE PLACEMENT PERCUTANEOUS 07/10/2018 N/A CARDIAC SURGERY 06/12/2018 coronary artery bypass graft HERNIA REPAIR CORONARY ARTERY BYPASS GRAFT 05/12/2018 - 05/11/2019 TONSILLECTOMY Medical History Medical History Date Comments Atrial fibrillation (HCC) Coronary artery disease Hypertension Hyperlipidemia Syncope Diabetes mellitus COPD (chronic obstructive pu lmonary disease) Ventricular tachycardia (HCC) Acute idiopathic gout of left ankle 06/25/2021 Chronic combined systolic (congestive) and diastolic (congestive) heart failure 06/21/2021 Benign hypertension Bilateral carotid artery stenosis 06/10/2018 History right hemisphere and cerebellar strokes Carotid stenosis Followed at [facility] last study July 2018 Conclusions: 1. The right internal carotid artery disease is consistent with a less than 50% stenosis. 2. The left internal carotid artery disease is consistent with a more than 70% stenosis. 3. Normal, antegrade flow is noted in bilateral vertebral arteries. 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 Intra-op pre-CPB NICOLETTE showed severe LV dysfunction with EF of 30% with global hypokinesis and akinetic inferior wall, moderately dilated. Moderately dilated RV with normal systolic function. Biatrial enlargement. 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 No 11/23/2024 Social Connection and Isolation Panel Answer Date Recorded In a typical week, how many times do you talk on the phone with family, friends, or neighbors? Three times a week 11/23/2024 How often do you get togethe r with friends or relatives? Three times a week 11/23/2024 How often do you attend chur or judaism services? Never 11/23/2024 Do you belong to any clubs o r organizations such as christianity groups, unions, fraternal or athletic groups, or school groups? No 11/23/2024 How often do you attend meet ings of the clubs or organizations you belong to? Never 11/23/2024 Are you , , di vorced, , never , or living with a partner? 11/23/2024 AUDIT-C Answer Date Recorded Q1: How often [...] food, housing, medical care, and heating? Not hard at all 11/23/2024 PHQ-2 Answer Date Recorded PHQ-2 Score 0 12/31/2018 Hunger Vital Sign Answer Date Recorded Within the past 12 months, y ou worried that your food would run out before you got the money to buy more. Never true 11/24/19 25 Within the past 12 months, t he food you bought just didn't last and you didn't have money to get more. Never true 11/23/2024 PRAPARE - Transportation Answer Date Re corded In the past 12 months, has l ack of transportation kept you from medical appointments or from getting medications? No 11/09 In the past 12 months, has l ack of transportation kept you from meetings, work, or from getting things needed for daily living? No 11/23/2024 Housing Stability Vital Sign Answer Immanuel e [...] place to sleep or slept in a detention (including now)? No 06/30/2023 Housing Stability Vital Sign Answer Immanuel e Recorded In the last 12 months, was t here a time when you were not able to pay the mortgage or rent on time? No 11/23/2024 In the past 12 months, how m any times have you moved where you were living? 0 11/23/2024 At any time in the [facility], were you homeless or living in a detention (including now)? No 11/23/2024 Personal Safety Answer Date Recorded Have you ever been in or are you currently in a harmful physical or emotional relationship or is someone making you feel afraid or unsafe? Denies 01/04/2025 Sex and Gender Information Value Date Recorded Sex Assigned at Not on file Legal Sex Male 2:47 AM BETTING AGENCY MANAGER Gender Identity Not on file Sexual Orientation Not on file Last Filed Vital Signs Vital Sign Reading Time Taken Comments Blood Pressure 113/76 01/04/2025 2:00 PM CDT Pulse 66 01/04/2025 2:00 PM CDT Temperature 36.2 C (97.1 F) 01/04/2025 2:00 PM CDT Respiratory Rate 18 01/04/2025 2:00 PM CDT Oxygen Saturation 99% 01/04/2025 2:00 PM CDT Inhaled Oxygen Concentration - - Weight 90.7 kg (200 lb) 11/23/2024 3:36 AM CDT Height 170.2 cm (5' 7.01) 11/23/2024 3:36 AM CD T Body Mass Index 31.32 11/23/2024 3:36 AM CDT Plan of Treatment Health Maintenance Due [...] 12/26/2023 06/27/2023, 06/12, 03/21/2021, Additional history exists Influenza Vaccine (#1) 2025 Fall Risk Assessment 11/25/2025 11/25/2024 eGFR 11/25/2025 11/25/2024, 11/09, 11/23/2024, Additional history exists Prostate Cancer Screening-PSA Discontinued 03/21/2021 Abdominal Aortic Aneurysm (A AA) Screen Completed 11/23/2024, 06/25/2023, 04/11/2023, Additional history exists Medical Devices Implanted Type Area Party Plan Dealer Device Identifier Shelf Expiration Date Model / Serial / Lot [employer] [id number] Herber[employer] s Physio Ii 28mm Franco Sew Mitral Ring - [id number] - [id number] Implanted:Qty: 1 on 06/12/2018 by Salvador Malone MD at [facility] N/A: Heart [employer] 03/04/2023 [id number] / [id number] / Procedures Procedure Name Priority Date/Time Associated Diagnosis Comments EGFR Routine 11/25/2024 9:[address] CHEST ABDOMEN PELVIS WO CONTRAST ED 11/23/2024 2:31 AM CDT HEMOGLOBIN A1C Routine 06/27/2023 12:17 PM BETTING AGENCY MANAGER LIPID PANEL Routine 03/21/2021 10:55 AM BETTING AGENCY MANAGER PSA SCREEN Routine 03/21/2021 10:55 AM BETTING AGENCY MANAGER from Last 3 Months or Most Recently Relevant to Health Maintenance Results * eGFR (11/25/2024 9:04 AM CDT) eGFR 70 >=60 mL/min/1. 73 m2 Comment: Interpretive Data [...] interpretive data was last reviewed 2021. Blood 11/25/2024 9:04 AM CDT 11/25/2024 9:25 AM CDT us Twyla Vaughan DO LAB BLOOD ORDERABLES Fin al Result [facility] ([place]) [address] [facility] Department [place] [address] * CT Chest Abdomen Pelvis WO Contrast (11/23/2024 2:31 AM CDT) Anatomical Region Laterality Modality Body N/A Computed Tomogra phy 11/23/2024 6:33 AM CDT Narrative 11/23/2024 6:50 AM CDT EXAM DESCRIPTION: CT CHEST ABDOMEN PELVIS WO CONTRAST REASON FOR STUDY: Dyspnea, chronic, unclear etiology Patient has weakness, fever today. Patient denied any chest or abdominal complaints at this time. TECHNIQUE: CT scan of the chest, abdomen, and pelvis performed without intravenous and without oral contrast using helical scanning technique. Reconstructed coronal and sagittal MPR images reviewed. All images stored on PACS. Automated exposure control was used as a dose optimization technique for this examination. COMPARISON: 06/25/2023 and 04/09/2023 FINDINGS: The sensitivity for detection of visceral lesions is diminished without the use of intravenous contrast. CHEST LUNGS: 8 mm sub solid nodule within the right apex on image 11 is stable in size though increased in density compared to prior examination on 04/09/2023. There is subsegmental scarring and atelectasis within both lungs. There is no pneumonic consolidation. There is a 4 mm nodule at the Dianna diaphragmatic left lower lobe on image number 74, stable compared to the prior study on 06/25/2023. The central airways are patent. PLEURA: No effusion. No pneumothorax. MEDIASTINUM/ANDREW: The thyroid gland is unremarkable. There are scattered subcentimeter short axis mediastinal and hilar nodes, similar to the previous examination. No new adenopathy. HEART: The heart is borderline enlarged, stable in size. Atherosclerotic vascular calcifications and changes of CABG. No significant pericardial effusion. CORONARY ARTERY CALCIFICATION: Present VASCULATURE CHEST: The thoracic aorta is atherosclerotic, without aneurysm. Main pulmonary trunk normal in caliber. AXILLA: There is no axillary lymphadenopathy. CHEST WALL: Gynecomastia, similar to the previous study. HARDWARE/LINES/TUBES: Sternotomy changes. MUSCULOSKELETAL CHEST: There is thoracic spondylosis and degenerative disc disease. Sternotomy changes are noted. No obvious acute abnormality involving the patient's arms which overlie the lower chest. There is a small soft tissue nodular focus within the subcutaneous tissues of the posterior lower back at the midline at the T8-9 level, which may represent a tiny sebaceous cyst. Correlate with physical exam findings. ABDOMEN/PELVIS LIVER: The liver is stable in size. No appreciable mass within the limitations of this noncontrast study. GALLBLADDER: Cholelithiasis. No CT evidence of cholecystitis BILE DUCTS: No intrahepatic or extrahepatic ductal dilatation. SPLEEN: The spleen is mildly enlarged, measuring 14 cm in maximum longitudinal dimension, previously 13 cm. PANCREAS: There is some fatty replacement of the pancreatic parenchyma, similar to the prior examinations. No pancreatic ductal dilatation or peripancreatic fluid collection/inflammatory change. Assessment for mass limited. ADRENALS: Normal. KIDNEYS/URINARY TRACT: There is some nonspecific perinephric stranding which is similar to the most recent prior examination. Renal vascular calcifications are again noted. Assessment for mass limited on this noncontrast examination. No hydronephrosis or hydroureter. The urinary bladder is decompressed about a Lara catheter, limiting evaluation. Air within the bladder presumably associated with Lara catheter placement. GI: The stomach is decompressed, limiting evaluation. Duodenum is normal in configuration. Small bowel loops are normal in caliber. There is no obstruction. The appendix is not definitively visualized. There is diverticulosis throughout the colon. No evidence of acute diverticulitis. There is some wall thickening of the rectum, similar to the prior studies. PERITONEUM: There is no free intraperitoneal air. There is no free pelvic fluid. No mesenteric adenopathy. There is a small fat containing umbilical hernia, stable RETROPERITONEUM: There is no retroperitoneal mass. There are a few scattered subcentimeter short axis periaortic nodes, stable. REPRODUCTIVE: No significant abnormality. VASCULATURE ABDOMEN: The abdominal aorta is densely atherosclerotic. There is a fusiform infrarenal abdominal aortic aneurysm, which begins approximately 6 cm distal to the renal artery origins. Maximum dimensions are 4 point 3 x 4.3 cm on image number 128 of the axial series. Similar measurements are obtained on coronal and sagittal reconstructed images. Extensive atherosclerotic calcification of the abdominal aorta and major branch vessels to include the SMA at the origin and in the proximal 7 cm of the artery. Appearance is similar to prior examinations, better evaluated on prior CTA studies. Extensive atherosclerotic calcifications throughout the common, internal and external iliac arteries. MUSCULOSKELETAL ABDOMEN PELVIS: There is grade 1 anterolisthesis of L5 on S1 with bilateral pars defects. There is mild compression deformity at the superior endplate of L1, slightly increased compared to the previous examination. This can be further evaluated with MRI as warranted clinically. OTHER: Small fat containing left inguinal hernia. IMPRESSION: 1. No pneumonic consolidation. No effusion or pneumothorax. 2. 8 mm sub solid nodule in the right apex, stable in size though increased in density compared to prior examination on 04/09/2023. Three-month follow-up CT examination is recommended. 3. No bowel obstruction, free air or free fluid. 4. Cholelithiasis without CT evidence of cholecystitis. 5. Mild splenomegaly. 6. Fusiform infrarenal abdominal aortic aneurysm measuring 4.3 cm in maximum dimension, stable. 4.0-4.9 cm Recommended surveillance imaging at 12-month intervals per Society for Vascular Surgery Guidelines: J Vasc Surgery 2008 50: s2s49; updated May 2017 J Vasc Surgery 67:277 7. Mild compression deformity at the superior endplate of L1, slightly increased compared to the previous examination. 8. Additional findings as above. Pulmonary nodule recommendation: Per Fleischner Society Guidelines, non-contrast chest CT at 3 to 6 months is recommended. If nodules persist, subsequent management will be based upon the most suspicious nodule(s). THIS IS AN ELECTRONICALLY VERIFIED FINAL REPORT 11/23/2024 6:50 AM - Electronically signed by Tamera Flynn M.D. TW: SISSY Report ID: [id number] Reading Location: [id number] Procedure Note Tamera Flynn MD - 11/23/2024 EXAM DESCRIPTION: CT CHEST ABDOMEN PELVIS WO CONTRAST REASON FOR STUDY: Dyspnea, chronic, unclear etiology Patient has weakness, fever today. Patient denied any chest or abdominal complaints at this time. TECHNIQUE: CT scan of the chest, abdomen, and pelvis performed without intravenous and without oral contrast using helical scanning technique. Reconstructed coronal and sagittal MPR images reviewed. All images storedon PACS. Automated exposure control was used as a dose optimizationtechnique for this examination. COMPARISON: 06/25/2023 and 04/09/2023 FINDINGS: The sensitivity for detection of visceral lesions is diminished withoutthe use of intravenous contrast. CHEST LUNGS: 8 mm sub solid nodule within the right apex on image 11 is stablein size though increased in density compared to prior examination on04/09/2023. There is subsegmental scarring and atelectasis within both lungs. Thereis no pneumonic consolidation. There is a 4 mm nodule at the Dianna diaphragmatic left lower lobe on image number 74, stable compared to the prior study on 06/25/2023. The central airways are patent. PLEURA: No effusion. No pneumothorax. MEDIASTINUM/ANDREW: The thyroid gland is unremarkable. There arescattered subcentimeter short axis mediastinal and hilar nodes, similar to theprevious examination. No new adenopathy. HEART: The heart is borderline enlarged, stable in size.Atherosclerotic vascular calcifications and changes of CABG. No significant pericardial effusion. CORONARY ARTERY CALCIFICATION: Present VASCULATURE CHEST: The thoracic aorta is atherosclerotic, withoutaneurysm. Main pulmonary trunk normal in caliber. AXILLA: There is no axillary lymphadenopathy. CHEST WALL: Gynecomastia, similar to the previous study. HARDWARE/LINES/TUBES: Sternotomy changes. MUSCULOSKELETAL CHEST: There is thoracic spondylosis and degenerativedisc disease. Sternotomy changes are noted. No obvious acute abnormality involving the patient's arms which overlie the lower chest. There is asmall soft tissue nodular focus within the subcutaneous tissues of the posterior lower back at the midline at the T8-9 level, which may represent a tiny sebaceous cyst. Correlate with physical exam findings. ABDOMEN/PELVIS LIVER: The liver is stable in size. No appreciable mass within the limitations of this noncontrast study. GALLBLADDER: Cholelithiasis. No CT evidence of cholecystitis BILE DUCTS: No intrahepatic or extrahepatic ductal dilatation. SPLEEN: The spleen is mildly enlarged, measuring 14 cm in maximum longitudinal dimension, previously 13 cm. PANCREAS: There is some fatty replacement of the pancreatic parenchyma, similar to the prior examinations. No pancreatic ductal dilatation or peripancreatic fluid collection/inflammatory change. Assessment for mass limited. ADRENALS: Normal. KIDNEYS/URINARY TRACT: There is some nonspecific perinephric strandingwhich is similar to the most recent prior examination. Renal vascular calcifications are again noted. Assessment for mass limited on this noncontrast examination. No hydronephrosis or hydroureter. The urinary bladder is decompressed about a Lara catheter, limiting evaluation. Air within the bladder presumably associated with Lara catheter placement. GI: The stomach is decompressed, limiting evaluation. Duodenum isnormal in configuration. Small bowel loops are normal in caliber. There is no obstruction. The appendix is not definitively visualized. There is diverticulosis throughout the colon. No evidence of acute diverticulitis. There is some wall thickening of the rectum, similar to the prior studies. PERITONEUM: There is no free intraperitoneal air. There is no freepelvic fluid. No mesenteric adenopathy. There is a small fat containingumbilical hernia, stable RETROPERITONEUM: There is no retroperitoneal mass. There are a few scattered subcentimeter short axis periaortic nodes, stable. REPRODUCTIVE: No significant abnormality. VASCULATURE ABDOMEN: The abdominal aorta is densely atherosclerotic.There is a fusiform infrarenal abdominal aortic aneurysm, which beginsapproximately 6 cm distal to the renal artery origins. Maximum dimensions are 4 point 3x 4.3 cm on image number 128 of the axial series. Similar measurements are obtained on coronal and sagittal reconstructed images. Extensive atherosclerotic calcification of the abdominal aorta and major branchvessels to include the SMA at the origin and in the proximal 7 cm of the artery. Appearance is similar to prior examinations, better evaluated on prior CTA studies. Extensive atherosclerotic calcifications throughout the common, internal and external iliac arteries. MUSCULOSKELETAL ABDOMEN PELVIS: There is grade 1 anterolisthesis of L5on S1 with bilateral pars defects. There is mild compression deformity at the superior endplate of L1, slightly increased compared to the previous examination. This can be further evaluated with MRI as warrantedclinically. OTHER: Small fat containing left inguinal hernia. IMPRESSION: 1. No pneumonic consolidation. No effusion or pneumothorax. 2. 8 mm sub solid nodule in the right apex, stable in size thoughincreased in density compared to prior examination on 04/09/2023. Nkuvx-oacntqxnitx-[id number] CT examination is recommended. 3. No bowel obstruction, free air or free fluid. 4. Cholelithiasis without CT evidence of cholecystitis. 5. Mild splenomegaly. 6. Fusiform infrarenal abdominal aortic aneurysm measuring 4.3 cm inmaximum dimension, stable. 4.0-4.9 cm Recommended surveillance imaging at 12-month intervals per Society for Vascular Surgery Guidelines: J Vasc Surgery 2009Oct 50: s2s49; updated May 2017 J Vasc Surgery 67:277 7. Mild compression deformity at the superior endplate of L1, slightly increased compared to the previous examination. 8. Additional findings as above. Pulmonary nodule recommendation: Per Fleischner Society Guidelines, non-contrast chest CT at 3 to 6 months is recommended. If nodules persist, subsequent management will be based upon the most suspicious nodule(s). THIS IS AN ELECTRONICALLY VERIFIED FINAL REPORT 11/23/2024 6:50 AM - Electronically signed by Tamera Flynn M.D. TW: TW Report ID: [id number] Reading Location: [place] [address] Jourdan Smith MD IMG CT PROCEDURES Final Resu lt * (ABNORMAL) Hemoglobin A1c (06/27/2023 12:17 PM BETTING AGENCY MANAGER) Hgb A1C 6.3(H) 4.0 - 5.6 % [facility] Estimated Average Glucose 134 mg/dL [facility] Comment: The ADA recommends reporting an estimated Average Glucose (eAG) with all Hemoglobin A1c results using the equation derived from a study of 507 normal and diabetic adults. Minority populations were underrepresented and children were not included. (Diabetes Care 31:8449-1972, 2008). The eAG is not equivalent to a fasting glucose. Blood 06/27/2023 12:1 7 PM BETTING AGENCY MANAGER 06/27/2023 12:33 PM BETTING AGENCY MANAGER us Trenton Lancaster MD LAB BLOOD ORDERABLES Final Result [facility] [address] Department of Laboratories [place], [place] [id number] * PSA screen (03/21/2021 10:55 AM BETTING AGENCY MANAGER) PSA-Total 0.25 <=5.40 ng/mL [facility] ([place]) Comment: Interpretive Data AGE SEX REFERENCE INTERVAL 0 minutes-150 years Female None 0 minutes-49 years Male None 50-59 years Male 0-3.90 60-69 years Male 0-5.40 70-79 years Male 0-6.20 80-150 years Male 0-6.20 Current interpretive data last revised 2018. Testing performed by: [facility], [address] [place] [address]., [id number] Blood 03/21/2021 10:5 5 AM BETTING AGENCY MANAGER 03/21/2021 4:08 PM BETTING AGENCY MANAGER us Jim De La Cruz MD LAB BLOOD ORDERABLES Susan l Result [facility] ([place]) [address] [facility] Department [place] [address] * (ABNORMAL) Lipid panel (03/21/2021 10:55 AM BETTING AGENCY MANAGER) Cholesterol 210(H) 30 - 199 mg/dL [facility] [...] revised on 2017. Chol/HDL ratio 7 PATRICIA Masters [facility] ([place]) Blood 03/21/2021 10:5 5 AM BETTING AGENCY MANAGER 03/21/2021 11:48 AM BETTING AGENCY MANAGER us Jim De La Cruz MD LAB BLOOD ORDERABLES Susan brunson Result [facility] ([place]) [address] [facility] Department [place] [address] from Last 3 Months or Most Recently Relevant to Health Maintenance Insurance [address] MEDICARE ADVANTAGE [facility] MED[facility] Address: [address] [id number] [place] [address] [employer] HMO REF [facility] MED[facility] Address: [address] [address] [place] [address] [employer] HMO REF [facility] MEDICARE Address: [address] [address] [place] [address] MEDICARE ADVANTAGE [facility] MEDICARE Address: [address] [address] [place] [address] Advance Directives For more information, please contact: [phone] Documents on File Type Date Recorded Patient Account Leader Expl anation ADVANCE DIRECTIVE 07/04/2023 10:42 AM TEODORO R OF [employer] * Full Code (Latest Code Status on File) Date Activated Date Inactivated Comments 11/23/2024 2:02 AM 11/25/2024 8:03 PM * Full Code Date Activated Date Inactivated Comments 11/30/2023 3:37 PM 12/02/2023 6:09 PM * Full Code Date Activated Date Inactivated Comments 11/30/2023 3:36 PM 11/30/2023 3:37 PM * Full Code Date Activated Date Inactivated Comments 06/26/2023 1:27 PM 07/03/2023 6:08 PM * Full Code Date Activated Date Inactivated Comments 04/09/2023 12:22 AM 04/15/2023 5:22 PM Care Teams Legal Adviser Relationship Specialty Start Date End Date Miscellaneous, Not In File PCP - General 11/23/24 Kayla Cruz MD PhD Surgeon Vascular Surgery 08/23/18 Miah Merritt MD Surgeon Orthopedic Surgery 08/23/18 Mily Rush, PhD Psychologist Psychology 08/23/18 Naveen Ty MD Surgeon Vascular Surgery 08/23/18 Salvador Malone MD Referring Physician Cardiothoracic Surgery 08/23/18 Niles Reeves MD [address] [place] [address] DR BLUM [address] [place] [id number] Surgeon General Surgery 04/10/23 [place] [id number] [address] [facility] [address], [place] [address] Consulting Physician Vascular Surgery 07/02/23
--- OUTSIDE RECORDS SUMMARY | 2025-04-27 17:39 | XMS_ITS | Encounter Summary ---
Author Organization [facility] Address [address] [place] [address] Phone Care Team Providers Care Tar Processing Technician Name Role Phone Jim De La Cruz MD Primary Care Provider [phone] Encounter Details Date Type Department Care Team (Late st Contact Info) Description 01/06/2025 Transcribe Orders [facility] [address] [place] [address] Charlene Palomino, PRE PAROLE COUNSELING AIDE [address] [place] [id number] Social History Tobacco Use Types Packs/Day Years Used Date Smoking Tobacco: Never Assessed Sex and Gender Information Value Date Recorded Sex Assigned at Not on file Legal Sex Male 4:53 PM FISH CUTTER Gender Identity Not on file Sexual Orientation Not on file documented as of this encounter Plan of Treatment Not on file documented as of this encounter Visit Diagnoses Not on filedocumented in this encounter Care Teams Tar Processing Technician Relationship Specialty Start Date End Date Jim De La Cruz MD PCP - General Family Medicine 07/02/23 documented as of this encounter
--- OUTSIDE RECORDS SUMMARY | 2025-04-27 17:39 | XMS_ITS | Encounter Summary ---
Author Organization [facility] Healthcare Address [address] [place] [address] Care Team Providers Care Set Up Mechanic Name Role Phone No, Physician Primary Care Provider [phone] Vesta Mosley MD Primary Care Provider + [phone] No, Physician Primary Care Provider [phone] Vesta Mosley MD Primary Care Provider + [phone] Kayla Cruz MD PhD Unavailable [phone] Miah Merritt MD Unavailable [phone] Mily Rush PhD Unavailable [phone] Naveen Ty MD Unavailable [phone] Salvador Malone MD Unavailable [phone] Fransico Ardon DO Primary Care Provider + [phone] Fransico Ardon DO Primary Care Provider [phone] Jim De La Cruz MD Primary Care Provider + [phone] Niles Reeves MD Unavailable + [phone] Zachery Wood MD Unavailable [phone] Charlene Palomino NP Primary Care Provider [phone] Miscellaneous, Not In File Primary Care Provider Unavailable Encounter Details Date Type Department Care Team (Late st Contact Info) Description 06/22/[address] 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 Gender Identity Not on file Sexual Orientation Not on file documented as of this encounter Functional Status * Question Answer Date of Assessment Author MAP (mmHg) 78 06/25/2018 11:00 PM Thais Barrientos RN * Question Answer Date of Assessment Author BP Location Left arm 06/25/2018 11:00 PM Thais Barrientos RN BP Method Automatic 06/25/2018 11:00 PM Thais Barrientos RN * Ashley Fall Risk Question Answer Date of Assessment Author History of Falling 25 06/25/2018 8:00 PM Thais Quijano RN Secondary Diagnosis 15 06/25/2018 8:00 PM Thais Son RN Ambulatory Aids 0 06/25/2018 8:00 PM Thais Hi RN Intravenous Therapy/Heparin/Saline Lock 20 06/25/2018 8:00 PM Thais Quijano RN Gait/Transferring 0 06/25/2018 8:00 PM Thais Quijano RN Mental Status 15 06/25/2018 8:00 PM Thais Barrientos RN * Frederick Scale Question Answer Date of Assessment Author Sensory Perceptions 3 06/25/2018 8:00 PM Thais Son RN Moisture 3 06/25/2018 8:00 PM Thais Guy RN Activity 2 06/25/2018 8:00 PM Thais Guy RN Mobility 3 06/25/2018 8:00 PM Thais Guy RN Nutrition 3 06/25/2018 8:00 PM Thais Guy RN Friction and Shear 2 06/25/2018 8:00 PM Thais Quijano RN Frederick Scale Score 16 06/25/2018 8:00 PM Thais Quijano RN * Fall Risk Interventions Question Answer Date of Assessment Author All Low Fall Interventions Applied Yes 06/25/2018 8:00 PM Thais Quijano RN All Low Fall Interventions EXCEPT: Call light in reach 06/25/2018 8:00 PM Thais Quijano RN All Moderate Fall Interventions Applied Yes 06/25/2018 8:00 PM Thais Quijano RN All Moderate Fall Risk Interventions EXCEPT: Fall risk sign with education;Gait belt at bedside;OT eval requested or obtained 06/24/2018 8:00 AM Alea Turner NP All High Fall Risk Interventions Applied Yes 06/25/2018 8:00 PM Thais Quijano RN All High Risk Interventions EXCEPT: Bed alarm;Chair alarm;Fall risk sign with education 06/24/2018 8:00 AM Alea Turner NP Additional Interventions Applied Constant observation 06/25/2018 8:00 PM Thais Quijano RN Reason For Exception(s) pt sedated 06/23/19 19 8:00 PM Thais Quijano RN Reason For Exception(s) ICU 06/24/19 19 8:00 AM Alea Turner NP Reason For Exception(s) ICU 06/24/19 19 8:00 AM Alea Turner NP * Question Answer Date of Assessment Author PT Functional Mobility Transfer training for mobility 06/24/2018 11:59 AM Yvonne Zuleta, PT * B.M.A.T. - Bedside Mobility Assessment Tool for Nurses Question Answer Date of Assessment Author Is patient able to participate in the BMAT? No 06/25/2018 8:00 PM Thais Quijano RN Reason patient is unable to participate in BMAT Combative 06/25/2018 8:00 PM Thais Quijano RN BMAT Level Level 1 - Red 06/23/2018 8:00 PM Thais Quijano RN Level 1 Equipment Use total lift with sling and/or repositioning sheet 06/22/2018 8:00 PM Thais Quijano RN Level 3 Equipment Use total lift with ambulation slings 06/23/2018 8:00 PM Thais Quijano RN * Integumentary Question Answer Date of Assessment Author Skin Color Appropriate for ethnicity 06/25/2018 8:00 PM Thais Quijano RN Skin Condition/Temp Warm 06/25/2018 8 :00 PM Thais Quijano RN Skin Integrity Surgical incision 06/25/2018 8:0 0 PM Thais Quijano RN Skin Turgor Non-tenting 06/24/2018 8:00 AM Alea Turner NP Integumentary Additional Assessments Yes-Frederick 06/25/2018 8:00 AM Alea Turner NP Integumentary (WDL) X 06/25/2018 8 :00 PM Thais Quijano RN Skin Location see ldas 06/25/2018 8:00 PM Thais Quijano RN * Type of Wound (LDA) Answer Date of Assessment Author Surgical site 06/23/2018 8:00 AM Hawa Sanchez RN * Question Answer Date of Assessment Author Special Mattress Foam 06/24/2018 8:00 AM Alea Ayala NP * Question Answer Date of Assessment Author BP Location Left arm 06/25/2018 11:00 PM Thais Barrientos RN BP Method Automatic 06/25/2018 11:00 PM Thais Barrientos RN * Question Answer Date of Assessment Author Edema Trace 06/25/2018 8:00 AM Alea Gil NP RLE Edema +1 06/25/2018 8:00 PM Thais Guy RN LLE Edema +1 06/25/2018 8:00 PM Thais Guy RN Edema Generalized 06/25/2018 8:00 PM Thais Guy RN * Question Answer Date of Assessment Author Affect Suspicious;Anxious/W orrie d 06/23/2018 8:00 AM Elena Sanchez RN Mood Guarded;Hostile;Susp iciou s 06/25/2018 8:00 PM Thais Quijano RN * Question Answer Date of Assessment Author Bed In Lowest Position Yes 06/25/2018 10:00 P M Thais Quijano RN Bed Wheels Locked Yes 06/25/2018 10:00 PM Thais Quijano RN * Fall Risk Interventions Question Answer Date of Assessment Author All Low Fall Interventions Applied Yes 06/25/2018 8:00 PM Thais Quijano RN All Low Fall Interventions EXCEPT: Call light in reach 06/25/2018 8:00 PM Thais Quijano RN All Moderate Fall Interventions Applied Yes 06/25/2018 8:00 PM Thais Quijano RN All Moderate Fall Risk Interventions EXCEPT: Fall risk sign with education;Gait belt at bedside;OT eval requested or obtained 06/24/2018 8:00 AM Alea Turner NP All High Fall Risk Interventions Applied Yes 06/25/2018 8:00 PM Thais Quijano RN All High Risk Interventions EXCEPT: Bed alarm;Chair alarm;Fall risk sign with education 06/24/2018 8:00 AM Alea Turner NP Additional Interventions Applied Constant observation 06/25/2018 8:00 PM Thais Quijano RN Reason For Exception(s) pt sedated 06/23/19 8:00 PM Thais Quijano RN Reason For Exception(s) ICU 06/24/19 8:00 AM Alea Turner NP Reason For Exception(s) ICU 06/24/19 8:00 AM Alea Turner NP * Question Answer Date of Assessment Author Skin Care Protective Foam Dressing;Moisture barrier 06/24/2018 8:00 AM Alea Turner NP Hygiene Dianna care;Munson care 06/25/2018 10:00 PM Thais Quijano RN Oral Care Mouth swabbed 06/25/2018 10:00 PM Thais Quijano RN Hygiene Level of Assistance Dependent 06/23/2018 3:00 PM Elena Sanchez RN Toileting: Assistance with Perineal hygiene 06/22/2018 6:00 PM Elena Sanchez RN * Nutrition Question Answer Date of Assessment Author Feeding Level of Assistance Total assist 06/22/2018 8: 00 AM Ahmet Lamas RN documented as of this encounter Mental Status * Question Answer Entry Date Author Level of Consciousness Awake 9 8:00 PM Thais Quijano RN Orientation Oriented to person 06/25/2018 8: 00 PM Thais Quijano RN * Question Answer Entry Date Author Neuro (WDL) X 06/25/2018 8:00 PM Thais Guy RN documented in this encounter Plan of Treatment Not on file documented as of this encounter Visit Diagnoses Not on filedocumented in this encounter Additional Health Concerns Infection Onset Date Last Indicated Resolved Time MRSA Comment:Discontinuation criteria met. Paris Toth 06/26/2018 09/11/2012 09/11/2012 06/26/2018 1:[address] COVID19 Comment:Airborne + Contact precautions. Gown, Gloves, N95, eye protection or goggles. Precautions 07/05/21. Contact Rock Wool Insulator if patient worsens. ÁLVARO Montoya 06/27/21 06/26/2021 06/26/2021 07/05/2021 3:[address] COVID: Recovered Comment:Added based on recent COVID infection. 07/05/2021 07/26/2021 11/02/2021 3:06 AM C DT COVID: Suspected 04/08/2023 04/08/2023 04/08/2023 10:50 PM BINDERY LEADPERSON MRSA 04/09/2023 04/09/2023 10/06/2023 3:05 AM CDT COVID: Suspected 11/29/2023 11/29/2023 11/29/2023 6:22 PM CDT COVID19 11/29/2023 11/29/2023 12/12/2023 3:05 AM CDT COVID: Recovered Comment:Added based on recent COVID infection. 12/12/2023 12/16/2023 03/11/2024 3:05 AM C DT COVID: Suspected 11/22/2024 11/22/2024 11/23/2024 12:50 AM CDT documented as of this encounter Care Teams Set Up Mechanic Relationship Specialty Start Date End Date No, Physician PCP - General 12/02/17 07/09/18 Vesta Mosley MD PCP - General Internal Medicine 07/10/18 07/13/18 No, Physician PCP - General 07/14/18 07/22/18 Vesta Mosley MD PCP - General Internal Medicine 07/23/18 08/23/18 Fransico Ardon DO PCP - General Family Medicine 09/14/18 12/23/18 Fransico Ardon DO PCP - General 12/24/18 06/03/21 Jim De La Cruz MD PCP - General 06/04/21 11/28/23 Charlene Palomino NP [address] [place] [address] [place] [address] PCP - General Nurse Practitioner 11/29/23 11/22/24 Miscellaneous, Not In File PCP - General 11/23/24 Kayla Cruz MD PhD Surgeon Vascular Surgery 08/23/18 Miah Merritt MD Surgeon Orthopedic Surgery 08/23/18 Mily Rush, PhD Psychologist Psychology 08/23/18 Naveen Ty MD Surgeon Vascular Surgery 08/23/18 Salvador Malone MD Referring Physician Cardiothoracic Surgery 08/23/18 Niles Reeves MD [address] [place] [address] [address] [place] [address] Surgeon General Surgery 04/10/23 [place] [id number] [address] [address] Consulting Physician Vascular Surgery 07/02/23 documented as of this encounter
--- OUTSIDE RECORDS SUMMARY | 2025-04-27 17:39 | XMS_ITS | Clinical Summary ---
Author Organization [facility] Address [address] [place] [address] Phone Care Team Providers Care Quote Clerk Name Role Phone Jim De La Cruz MD Primary Care Provider [phone] Allergies Active Allergy Reactions Criticality Noted Date Comments Lisinopril Swelling High 11/29/2024 Sulfa Antibiotics Unknown High 11/29/2024 Medications acetaminophen (TYLENOL) 500 MG Tablet Take 500 mg by mouth every 4 hours as needed for Mild or more severe pain. Active allopurinol (ZYLOPRIM) 100 MG Tablet Take 100 mg by mouth daily. Active atorvastatin (LIPITOR) 80 MG Tablet Take 40 mg by mouth nightly. Active empagliflozin (JARDIANCE) 10 MG Tablet Take 10 mg by mouth daily. Active finasteride (PROSCAR) 5 MG Tablet Take 5 mg by mouth daily. Active furosemide (LASIX) 40 MG Tablet Take 40 mg by mouth daily. Active isosorbide mononitrate (IMDUR) 60 MG TABLET SR 24 HR Take 60 mg by mouth every morning. Active metFORMIN (GLUCOPHAGE) 500 MG TabletIndication s:Type 2 Diabetes Mellitus Take 500 mg by mouth 2 times daily (with meals). Indications: Type 2 Diabetes Active metoprolol tartrate (LOPRESSOR) 50 MG Tablet Take 50 mg by mouth 2 times daily. Active spironolactone (ALDACTONE) 25 MG Tablet Take 25 mg by mouth daily. 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[employer] Gender Identity Not on file Sexual Orientation Not on file Last Filed Vital Signs Vital Sign Reading Time Taken Comments Blood Pressure 104/72 12/20/2024 10:43 AM CDT Pulse 77 12/20/2024 10:43 AM CDT Temperature 36.5 C (97.7 F) 12/20/2024 10:43 AM CDT Respiratory Rate 18 12/20/2024 10:43 AM CDT Oxygen Saturation 98% 12/20/2024 10:43 AM CDT Inhaled Oxygen Concentration - - Weight 74.2 kg (163 lb 8 oz) 12/20/2024 10:43 AM CDT Height 177.8 cm (5' 10) 11/30/2024 3:18 PM CDT Body Mass Index 23.46 11/30/2024 3:18 PM CDT Plan of Treatment Not on file Insurance MEDICARE C [facility] Advance Directives Documents on File Type Date Recorded Patient Chart Collector Expl anation Power of Arborist Representative for Health Care 12/06/2024 12:50 PM POA-HC 12/06/24 Power of Arborist Representative for Health Care 11/29/2024 11:27 AM POA HC 12/21/2018 * Full Code (Latest Code Status on File) Date Activated Date Inactivated Comments 12/03/2024 9:11 AM Care Teams Quote Clerk Relationship Specialty Start Date End Date Jim De La Cruz MD PCP - General Family Medicine 07/02/23
[2025-04-27 19:35] LABS: Alanine Aminotransferase 28 U/L (6-50); Albumin Level 4.5 g/dL (3.5-5.1); Alkaline Phosphatase 69 U/L (38-126); Anion Gap 9 mmol/L (4-12); Aspartate Amino Transferase 30 U/L (17-59); Bilirubin,Total 1.2 mg/dL (0.2-1.3); Blood Urea Nitrogen 25 mg/dL (9-20); Calcium 9.6 mg/dL (8.4-10.2); Carbon Dioxide 30 mmol/L (22-30); Chloride 102 mmol/L (98-107); Estimated Glomerular Filt Rate > 60; Glucose 116 mg/dL (65-110); Potassium 4.7 mmol/L (3.4-5.0); Sodium 141 mmol/L (137-145); Total Protein 7.4 g/dL (6.3-8.2)
[2025-04-27 21:18] LABS: Hemoglobin A1C 6.3 % (<5.7)
== END 2025-04-27 14:50 | disposition home or self-care (01) ==
PROVIDERS: PCP Nurse Practitioner Adult Health; Visit Provider Nurse Practitioner Adult Health
DX: E11.9 Type 2 diabetes mellitus without complications (principal)
CPT/HCPCS: 36415; 80053; 83036